=== PATIENT | male | born 1935 | race Caucasian/White ===

== ENCOUNTER 2016-08-18 10:56 | Emergency (ER) | payer MEDICARE ==
[2016-08-18 11:26] VITALS: O2SAT 98
--- NOTE | 2016-08-18 11:26 | ERPHSYRPT ---
- History of Present Illness Time Seen by Provider: 08/18/16 11:26 Physician History: unable to urinate for last 2 days, has Hx of prostate cancer and enlargement, Timing/Duration: day(s) (2 days) Activites at Onset: none Associated Symptoms: other (unable to urinate) - Review of Systems Constitutional: No Symptoms Eyes: No Symptoms Ears, Nose, & Throat: No Symptoms Respiratory: No Symptoms Cardiac: No Symptoms Abdominal/Gastrointestinal: No Symptoms Genitourinary Symptoms: Urinary Retention Musculoskeletal: No Symptoms Skin: No Symptoms - Nursing Vital Signs Nursing Vital Signs: Initial Vital Signs Temperature 99.2 F Temperature Source Oral Pulse Rate 90 Respiratory Rate 18 Blood Pressure [Right Arm] 157/71 Pain Intensity 6 - Physical Exam General Appearance: no apparent distress Gastrointestinal/Abdomen Exam: soft, normal bowel sounds, other (bladder is full , urinary retention) - Course Nursing assessment & vital signs reviewed: Yes - Progress Progress: improved Progress Note: 08/18/16 11:30 rayo catheter inserted, urinary retention relieved, Plan to discharge patient home with indwelling rayo catheter Counseled pt/family regarding: diagnosis, need for follow-up - Departure Time of Disposition: 11:30 Departure Disposition: Home Clinical Impression: Urinary retention due to benign prostatic hyperplasia Condition: Stable Critical Care Time: No Referrals: DOROTHEA MOORE MD [Primary Care Provider] - Followup in 3 days w/ PCP Instructions: Urinary Retention in Men Additional Instructions: Please follow the instructions given to you. Please take your medication as prescribed if given. If symptoms recur or get worse, come back to the emergency room if you cannot reach your primary care physician, or call your primary care physician for an appointment. Again if your symptoms get worse, come back to the emergency room. Thanks for visiting emergency room, and let us take care of you. Prescriptions: Ciprofloxacin HCl 500 mg [Cipro 500 MG] 500 mg PO BIDAC #20 tablet
[2016-08-18 11:44] VITALS: BP 150/63; PULSE 94
[2016-08-18 13:06] LABS: COMPLETE URINE MICROSCOPIC? YES; Collection Type CATH; Ph 5.5 (5-6)
[2016-08-18 13:10] LABS: Epithelial Cells FEW /HPF (FEW); WBC >100 /HPF (0-5)
[2016-08-18 13:11] LABS: ADD URINE CULTURE? YES (NO); Bacteria MODERATE /HPF (NEGATIVE); Yeast MODERATE /HPF (NEGATIVE)
== END 2016-08-18 11:43 | disposition home or self-care (01) ==
LOC: ED 10:56
DX: N40.1 Benign prostatic hyperplasia with lower urinary tract symptoms (principal); R33.8 Other retention of urine
CPT/HCPCS: 51702; 81000; 87086; 99283

== ENCOUNTER 2016-09-21 15:39 | Emergency (ER) | payer MEDICARE ==
--- NOTE | 2016-09-21 16:51 | ERPHSYRPT ---
- History of Present Illness Time Seen by Provider: 09/21/16 16:39 Historian: patient Exam Limitations: no limitations Patient Subjective Stated Complaint: urinary retention starting today. had similair symptoms on 08/18/16. had cath placed at that time for one week and saw dr. howard. recent treament times two for bladder infection. Triage Nursing Assessment: ambulated to room per self. skin w/d, color pale. states he voided small amt in waiting bathroom but no relief. unable to void now. Physician History: This is a 81-year-old white male with history of urinary retention, cataracts, diabetes, COPD, coronary artery disease, hypercholesterolemia, prostate cancer, high blood pressure. He arrives with complaints of being unable to urinate since 10:00 he states he was urinating fine until about 10:00 this morning when he began to just having dribbling with urination he states that he is having pain in the suprapubic region prior to arrival. On arrival patient was noted to be in moderate distress and Rayo was placed and the patient has put out 800 mL of normal saline. He has not had any nausea vomiting diarrhea melena hematochezia. He has no fevers. The patient does state that he had a similar episodes like this in July he was treated by Dr. Moore he was given a Rayo for several days. He has an appointment to see Dr. Howard in several months. He is on Cipro for his urine he does state that his urine has been cloudy lately. Past medical history includes cataracts, diabetes, COPD, coronary artery disease , hypercholesterolemia, high blood pressure, prostate cancer. Patient had his prostate treatment with radiation and later hormones. Past surgical history includes CABG. Social history is positive for tobacco use . Timing/Duration: today Activities at Onset: none Quality: cramping Abdominal Pain Onset Location: suprapubic Pain Radiation: no radiation Severity of Pain-Max: moderate Severity of Pain-Current: mild (pain was moderate on arrival is markedly after receiving Rayo) Modifying Factors: Improves With: nothing Associated Symptoms: other (suprapubic pain, urinary retention), No back, No chest pain, No diaphoresis, No diarrhea, No fever/chills, No fatigue, No headache, No heartburn, No loss of appetite, No nausea, No neck pain, No rash, No shortness of breath, No syncope, No testicular pain, No vomiting, No weakness Allergies/Adverse Reactions: No Known Drug Allergies Allergy (Verified 09/21/16 15:57) Home Medications: Bicalutamide [Casodex] 50 mg PO DAILY 08/18/16 [History] Insulin Glargine [Lantus Insulin] 50 units SQ DAILY 08/18/16 [History] Insulin Glargine,Hum.rec.anlog [Lantus] 40 unit SQ HS 08/18/16 [History] Lipase/Protease/Amylase [Creon Dr 24,000 Units Capsule] 1 each PO DAILY [History] Metoprolol Tartrate 50 mg [Lopressor 50 MG] 50 mg PO BID 08/18/16 [History ] Simvastatin [Zocor] 40 mg PO BID 08/18/16 [History] Tamsulosin HCl 0.4 mg [Flomax 0.4 MG] 0.4 mg PO BID 08/18/16 [History] Valsartan/Hydrochlorothiazide [Valsartan-Hctz 80-12.5 mg Tab] 1 each PO DAILY [History] Cilostazol 50 mg PO BID 09/21/16 [History] Ciprofloxacin HCl 500 mg [Cipro 500 MG] 500 mg PO BID 09/21/16 [History] Hx Tetanus, Diphtheria Vaccination/Date Given: No (up to date) Hx Influenza Vaccination/Date Given: Yes (2015) Hx Pneumococcal Vaccination/Date Given: Yes - Review of Systems Constitutional: No Fever, No Chills Eyes: No Symptoms Ears, Nose, & Throat: No Symptoms Respiratory: No Cough, No Dyspnea Cardiac: No Chest Pain, No Edema, No Syncope Abdominal/Gastrointestinal: Abdominal Pain (Suprapubic pain), No Nausea, No Vomiting, No Diarrhea, No Constipation, No Hematemesis, No Hematochezia, No Melena, No Dysphagia, No Appetite Changes Genitourinary Symptoms: Urinary Retention Musculoskeletal: No Back Pain, No Neck Pain Skin: No Rash Neurological: No Dizziness, No Focal Weakness, No Sensory Changes Psychological: No Symptoms Endocrine: No Symptoms All Other Systems: Reviewed and Negative - Past Medical History Pertinent Past Medical History: Yes ENT History: Cataracts Cardiac History: Coronary Artery Disease, High Cholesterol, Hypertension Respiratory History: COPD Endocrine Medical History: Diabetes Type II Male Reproductive Disorders: Prostate Cancer - Past Surgical History Past Surgical History: Yes Cardiac: CABG - Social History Smoking Status: Light tobacco smoker How long have you smoked: 69 Exposure to second hand smoke: Yes Drug Use: none Patient Lives Alone: No - Nursing Vital Signs Nursing Vital Signs: Initial Vital Signs Temperature 98.5 F Temperature Source Oral Respiratory Rate 20 Blood Pressure [Right Arm] 117/78 Pain Intensity 9 - Physical Exam General Appearance: other (patient in moderate distress on arrival in no distress at this time) Eye Exam: PERRL/EOMI, eyes nml inspection Ears, Nose, Throat Exam: normal ENT inspection, pharynx normal, moist mucous membranes Neck Exam: normal inspection, non-tender, supple, full range of motion Respiratory Exam: normal breath sounds, lungs clear, No respiratory distress Cardiovascular Exam: regular rate/rhythm, normal heart sounds Gastrointestinal/Abdomen Exam: soft, normal bowel sounds, other ( patient with moderate suprapubic pain on arrival, minimal tenderness in the suprapubic regionafter Rayo placed rayo placed), No mass Back Exam: normal inspection, normal range of motion, No CVA tenderness, No vertebral tenderness Extremity Exam: normal inspection, normal range of motion, pelvis stable Neurologic Exam: alert, oriented x 3, cooperative, normal mood/affect, nml cerebellar function, sensation nml, No motor deficits Skin Exam: normal color, warm, dry SpO2 Interpretation: normal Oxygen Delivery: Room Air - Course Nursing assessment & vital signs reviewed: Yes Ordered Tests: Active Orders 24 hr Category Date Time Status Catheter-[place] Rayo STAT Care 09/21/16 16:39 Active CULTURE,URINE Stat Lab 09/21/16 16:39 Ordered UA W/ MICROSCOPIC Stat Lab 09/21/16 16:39 Completed Medication Summary Discontinued Medications Generic Name Dose Route Start Last Admin Trade Name Freq PRN Reason Stop Dose Admin Ceftriaxone Sodium 1,000 mg 09/21/16 17:13 09/21/16 17:29 Rocephin 1000 Mg Inj IM 09/21/16 17:14 1,000 mg STAT ONE Administration Ceftriaxone Sodium Confirm 09/21/16 17:15 Rocephin 1000 Mg Inj Administered 09/21/16 17:16 Dose 1,000 mg .ROUTE .STK-MED ONE Lidocaine HCl Confirm 09/21/16 17:15 Xylocaine 1% Hcl 20 Ml Mdv Administered 09/21/16 17:16 Dose 2 ml .ROUTE .STK-MED ONE Lab/Rad Data: Laboratory Results 09/21/16 Range/Units 16:39 Ur Collection Type CATH Urine Color YELLOW (YELLOW) Urine Appearance CLOUDY (CLEAR) Urine pH 5.5 (5-6) Ur Specific [place] 1.020 (1.005-1.025) Urine Protein 100 (Negative) Urine Glucose (UA) NEGATIVE (NEGATIVE) mg/dL Urine Ketones NEGATIVE (NEGATIVE) Urine Nitrite NEGATIVE (NEGATIVE) Urine Bilirubin NEGATIVE (NEGATIVE) Urine Urobilinogen 0.2 (0-1) mg/dL Urine WBC (Auto) MODERATE (NEGATIVE) Urine RBC (Auto) MODERATE (0-5) Horace/ul Urine Microscopic RBC 25-50 (0-2) /HPF Urine Microscopic WBC >100 (0-5) /HPF Ur Epithelial Cells RARE (FEW) /HPF Urine Bacteria MODERATE (NEGATIVE) /HPF Specimen Received 09/21/16 1649 - Progress Progress: improved Progress Note: 09/21/16 16:53 This 81-year-old white male with history of prostate cancer and urinary retention who is on Cipro for his urine. He arrives with complaint of cloudy urine for 2 days he states that he has been unable to urinate since 10:00 this morning. He got markedly relief with Rayo placement. Urinalysis has been sent will order urine culture. Anticipate discharged with Rayo in place and leg bag. Patient states he will follow-up with Dr. Moore on Saturday. 09/21/16 17:13 Patient does have greater than 100 white cells per high-power field in his urine , he is on Cipro Will go ahead and give patient Rocephin 1 g IM have him continue the Cipro. Will send patient home with a Rayo and leg bag patient to follow-up with Dr. Moore Saturday. Urinary cultures are pending - Departure Time of Disposition: 17:14 Departure Disposition: Home Clinical Impression: Urinary retention, Urinary retention due to benign prostatic hyperplasia UTI (urinary tract infection) Qualifiers: Urinary tract infection type: site unspecified Hematuria presence: with hematuria Qualified Code(s): N39.0 - Urinary tract infection, site not specified Condition: Fair Critical Care Time: No Referrals: DOROTHEA MOORE MD [Primary Care Provider] - Instructions: Urinary Retention in Men Additional Instructions: Return home. Continue Cipro as prescribed by Dr. Moore. Leg bag. Follow-up with Dr. Moore Saturday, sooner if problems. Return for acute distress or for severe symptoms.
[2016-09-21 17:04] LABS: Collection Type CATH; Ph 5.5 (5-6)
[2016-09-21 17:05] LABS: Bacteria MODERATE /HPF (NEGATIVE); COMPLETE URINE MICROSCOPIC? YES; Epithelial Cells RARE /HPF (FEW); WBC >100 /HPF (0-5)
[2016-09-21] MEDS ORDERED: Rocephin 1000 MG INJ IM ONE (17:13)
[2016-09-21] MEDS ORDERED: Rocephin 1000 MG INJ ONE (17:15)
[2016-09-21] MEDS ORDERED: XYLOCAINE 1% HCL 20 ML MDV ONE (17:15)
[2016-09-21 19:10] VITALS: BP 154/90; PULSE 88
== END 2016-09-21 19:10 | disposition home or self-care (01) ==
LOC: ED 15:39
DX: N40.1 Benign prostatic hyperplasia with lower urinary tract symptoms (principal); R33.8 Other retention of urine; N39.0 Urinary tract infection, site not specified; Z85.46 Personal history of malignant neoplasm of prostate
CPT/HCPCS: 51702; 81000; 87086; 96372; 99283; 99284; J0696

== ENCOUNTER 2017-07-17 09:01 | Inpatient (IN) | payer MEDICARE, OTHER ==
--- NOTE | 2017-07-17 09:25 | ERPHSYRPT ---
- History of Present Illness Time Seen by Provider: 07/17/17 09:25 Historian: patient Exam Limitations: no limitations Physician History: 82-year-old white male with history of cataracts, diabetes, COPD, coronary artery disease, hypercholesterolemia, Patient arrives with complaint of 4 weeks of nausea not eating well states he is unable to eat states he has occasional periumbilical pain states she's lost weight states he is weak he denies any fevers he denies any melena or hematochezia no chest pain he states he is chronically short of breath. He does state that he has been having frequent urination at night. Past medical history includes cataracts, diabetes, COPD, coronary artery disease , hypercholesterolemia, high blood pressure, prostate cancer. Past surgical history includes CABG, prostate surgery. Social history positive tobacco use Timing/Duration: week(s) (4 weeks) Activities at Onset: none Quality: cramping Abdominal Pain Onset Location: periumbilical Pain Radiation: no radiation Severity of Pain-Max: moderate Severity of Pain-Current: none Modifying Factors: Improves With: coughing, eating (patient not eating well), urinating (frequent urination at night), vomiting. Worsens With: analgesics, antacids, breathing, defecating, exercise, lying down, movement, palpation, rest , position, walking Associated Symptoms: loss of appetite, nausea, vomiting (occasional vomiting), weakness, No back, No chest pain, No diaphoresis, No diarrhea, No fever/chills, No fatigue, No headache, No heartburn, No neck pain, No rash, No shortness of breath, No syncope Previous symptoms: no prior history Allergies/Adverse Reactions: No Known Drug Allergies Allergy (Verified 07/17/17 09:34) Home Medications: Bicalutamide [Casodex] 50 mg PO DAILY 08/18/16 [History] Insulin Glargine,Hum.rec.anlog [Lantus] 40 unit SQ BIDAC 08/18/16 [History] Lipase/Protease/Amylase [Misty [employer]erson 24,000 Units Capsule] 2 each PO AC 08/18/16 [ History] Metoprolol Tartrate 50 mg [Lopressor 50 MG] 50 mg PO DAILY 08/18/16 [ History] Simvastatin [Zocor] 40 mg PO HS 08/18/16 [History] Tamsulosin HCl 0.4 mg [Flomax 0.4 MG] 0.4 mg PO BID 08/18/16 [History] Valsartan/Hydrochlorothiazide [Valsartan-Hctz 80-12.5 mg Tab] 1 each PO EVENING MEAL 08/18/16 [History] Hx Tetanus, Diphtheria Vaccination/Date Given: No (up to date) Hx Influenza Vaccination/Date Given: Yes (2015) Hx Pneumococcal Vaccination/Date Given: Yes - Review of Systems Constitutional: Weakness, Weight Loss, No Fever, No Chills, No Fatigue, No Lethargy, No Malaise, No Night Sweats Eyes: No Symptoms Ears, Nose, & Throat: No Symptoms Respiratory: Cough, Dyspnea, No Wheezing Cardiac: No Chest Pain, No Edema, No Palpitations, No Syncope, No Orthopnea Abdominal/Gastrointestinal: Abdominal Pain (occasional periumbilical abdominal pain), Nausea, Vomiting (occasional vomiting), Appetite Changes (loss of appetite for 4 weeks), No Diarrhea, No Constipation, No Hematemesis, No Hematochezia, No Melena, No Dysphagia Genitourinary Symptoms: No Dysuria Musculoskeletal: No Back Pain, No Neck Pain Skin: No Rash Neurological: No Dizziness, No Focal Weakness, No Sensory Changes Psychological: No Symptoms Endocrine: No Symptoms All Other Systems: Reviewed and Negative - Past Medical History Pertinent Past Medical History: Yes ENT History: Cataracts Cardiac History: Coronary Artery Disease, High Cholesterol, Hypertension Respiratory History: COPD Endocrine Medical History: Diabetes Type II Male Reproductive Disorders: Prostate Cancer - Past Surgical History Past Surgical History: Yes Cardiac: CABG - Social History Smoking Status: Light tobacco smoker How long have you smoked: 69 Exposure to second hand smoke: Yes Drug Use: none Patient Lives Alone: No - Nursing Vital Signs Nursing Vital Signs: Initial Vital Signs Temperature 97.8 F 07/17/17 09:19 Pulse Rate 98 H 07/17/17 09:19 Respiratory Rate 16 07/17/17 09:19 Blood Pressure 105/69 07/17/17 09:19 O2 Sat by Pulse Oximetry 98 07/17/17 09:19 Pain Scale Pain Intensity 0 - Physical Exam General Appearance: no apparent distress, other (well-developed well-nourished white male pale in appearance) Eye Exam: PERRL/EOMI, eyes nml inspection Ears, Nose, Throat Exam: normal ENT inspection, pharynx normal, moist mucous membranes Neck Exam: normal inspection, non-tender, supple, full range of motion Respiratory Exam: normal breath sounds, rhonchi (occasional scattered rhonchi), No respiratory distress, No diminished breath sounds Cardiovascular Exam: regular rate/rhythm, normal heart sounds Gastrointestinal/Abdomen Exam: soft, normal bowel sounds, No tenderness, No distention, No mass Back Exam: normal inspection, normal range of motion, No CVA tenderness, No vertebral tenderness Extremity Exam: normal inspection, normal range of motion, pelvis stable Neurologic Exam: alert, oriented x 3, cooperative, 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, normal mood/affect, nml cerebellar function, sensation nml, No motor deficits Skin Exam: pale SpO2 Interpretation: normal - Course Nursing assessment & vital signs reviewed: Yes EKG Interpreted by Me: RATE (83 bpm), Sinus Rhythm, NORMAL AXIS, Other (EKG: Sinus rhythm 80 beats per minute normal axis, no acute ST or T wave changes, no old EKG for comparison) - Radiology Exams Chest X-ray Interpretation: Discussed w/ radiologist (non acute hyperinflated chest with chronic features) Ordered Tests: Active Orders 24 hr Category Date Time Status Up With Assistance ROUTINE Activity 07/17/17 11:03 Active Accucheck ACHS Care 07/17/17 11:03 Active Admission/Status Order ROUTINE Care 07/17/17 11:03 Active Call Admit Doctor for Orders ON ADMISSION Care 07/17/17 11:04 Active Code Status Order ROUTINE Care 07/17/17 11:03 Active EKG-ER Only STAT Care 07/17/17 09:22 Active IV Care Q6H Care 07/17/17 11:03 Completed IV Insertion STAT Care 07/17/17 09:22 Active Clear Liquid Diet 07/17/17 Dinner Active CHEST 1 VIEW (PORTABLE) Stat Exams 07/17/17 09:22 Completed AMYLASE Stat Lab 07/17/17 09:25 Completed CBC W DIFF AM.LAB Lab 07/18/17 04:00 Ordered CBC W DIFF Stat Lab 07/17/17 09:25 Completed CMP AM.LAB Lab 07/18/17 04:00 Ordered CMP Stat Lab 07/17/17 09:25 Completed CULTURE,URINE Stat Lab 07/17/17 10:39 Received LIPASE Stat Lab 07/17/17 09:25 Completed UA W/ MICROSCOPIC Stat Lab 07/17/17 10:39 Completed Medication Summary Generic Name Dose Route Start Last Admin Trade Name Freq PRN Reason Stop Dose Admin Sodium Chloride 1,000 mls @ 125 mls/hr 07/17/17 09:30 07/17/17 09:41 Sodium Chloride 0.9% 1000 Ml IV 08/16/17 09:29 125 mls/hr .Q8H BLANCA Administration Ceftriaxone Sodium/Dextrose 1 g in 50 mls @ 100 mls/hr 07/18/17 10:00 Rocephin 1 Gm-D5w 50 Ml Bag IV 08/17/17 09:59 Q24H10 BLANCA Sodium Chloride 1,000 mls @ 125 mls/hr 07/17/17 11:15 Sodium Chloride 0.9% 1000 Ml IV 08/16/17 11:14 .Q8H BLANCA Insulin Aspart 0 unit 07/17/17 11:03 Novolog Insulin SQ 08/16/17 11:02 UD PRN HYPERGLYCEMIA Ondansetron HCl 4 mg 07/17/17 11:03 Zofran 4 Mg/2 Ml Vial IV 08/16/17 11:02 Q6H PRN PRN NAUSEA/VOMITING Discontinued Medications Generic Name Dose Route Start Last Admin Trade Name Freq PRN Reason Stop Dose Admin Ceftriaxone Sodium/Dextrose 1 g in 50 mls @ 100 mls/hr 07/17/17 11:02 11:14 Rocephin 1 Gm-D5w 50 Ml Bag IV 07/17/17 11:31 100 mls/hr STAT STA Administration Ceftriaxone Sodium/Dextrose Confirm 07/17/17 11:05 Rocephin 1 Gm-D5w 50 Ml Bag Administered 07/17/17 11:06 Dose 1 g in 50 mls @ ud IV .STK-MED ONE Sodium Chloride Confirm 07/17/17 09:39 Sodium Chloride 0.9% 1000 Ml Administered 07/17/17 09:40 Dose 1,000 mls @ ud .ROUTE .STK-MED ONE Lab/Rad Data: Laboratory Result Diagrams 07/17/17 09:25 07/17/17 09:25 Laboratory Results 07/17/17 07/17/17 07/17/17 Range/Units 10:39 09:25 09:25 WBC (4.0-10.5) K/mm3 RBC (4.1-5.6) M/mm3 Hgb (12.5-18.0) gm/dl Hct (42-50) % MCV (78-100) fl MCH (26-32) pg MCHC (32-36) g/dl RDW (11.5-14.0) % Plt Count (150-450) K/mm3 MPV (6-9.5) fl Gran % (36.0-66.0) % Lymphocytes % (24.0-44.0) % Monocytes % (0.0-12.0) % Eosinophils % (0.00-5.0) % Basophils % (0.0-0.4) % Basophils # (0-0.4) Sodium 137 (136-145) mEq/L Potassium 4.2 (3.5-5.1) mEq/L Chloride 103 (98-107) mEq/L Carbon Dioxide 19.7 L (21-32) mEq/L Anion Gap 18.0 H (5-15) MEQ/L BUN 49 H (9-20) mg/dL Creatinine 2.50 H (0.55-1.30) mg/dl Estimated GFR 26 ML/MIN Glucose 232 H (70-110) MG/DL Calcium 9.2 (8.5-10.1) mg/dL Total Bilirubin 0.40 (0.2-1.0) mg/dL AST 10 L (15-37) U/L ALT 12 (12-78) U/L Alkaline Phosphatase 76 (46-116) U/L Serum Total Protein 8.2 (6.4-8.2) gm/dL Albumin 2.7 L (3.4-5.0) g/dL Amylase 27 (25-115) U/L Lipase 28 L (73-393) U/L Ur Collection Type CLEAN CATCH Urine Color YELLOW (YELLOW) Urine Appearance CLOUDY (CLEAR) Urine pH 5.0 (5-6) Ur Specific [employer] 1.015 (1.005-1.025) Urine Protein 100 (Negative) Urine Ketones NEGATIVE (NEGATIVE) Urine Blood 250 (0-5) Horace/ul Urine Nitrite NEGATIVE (NEGATIVE) Urine Bilirubin NEGATIVE (NEGATIVE) Urine Urobilinogen NORMAL (0-1) mg/dL Ur Leukocyte Esterase 2+ (NEGATIVE) Urine Microscopic WBC >100 (0-5) /HPF Urine Culture Reflexed YES (NO) Urine Glucose NEGATIVE (NEGATIVE) mg/dL Specimen Received 07-17 1040 ABO Group A Rh Factor POSITIVE Antibody Screen NEGATIVE (NEGATIVE) 07/17/17 Range/Units 09:25 WBC 12.5 H (4.0-10.5) K/mm3 RBC 3.76 L (4.1-5.6) M/mm3 Hgb 10.2 L (12.5-18.0) gm/dl Hct 33.1 L (42-50) % MCV 88.0 (78-100) fl MCH 27.1 (26-32) pg MCHC 30.8 L (32-36) g/dl RDW 13.6 (11.5-14.0) % Plt Count 497 H (150-450) K/mm3 MPV 10.0 H (6-9.5) fl Gran % 75.6 H (36.0-66.0) % Lymphocytes % 15.2 L (24.0-44.0) % Monocytes % 7.8 (0.0-12.0) % Eosinophils % 1.2 (0.00-5.0) % Basophils % 0.2 (0.0-0.4) % Basophils # 0.02 (0-0.4) Sodium (136-145) mEq/L Potassium (3.5-5.1) mEq/L Chloride (98-107) mEq/L Carbon Dioxide (21-32) mEq/L Anion Gap (5-15) MEQ/L BUN (9-20) mg/dL Creatinine (0.55-1.30) mg/dl Estimated GFR ML/MIN Glucose (70-110) MG/DL Calcium (8.5-10.1) mg/dL Total Bilirubin (0.2-1.0) mg/dL AST (15-37) U/L ALT (12-78) U/L Alkaline Phosphatase (46-116) U/L Serum Total Protein (6.4-8.2) gm/dL Albumin (3.4-5.0) g/dL Amylase (25-115) U/L Lipase (73-393) U/L Ur Collection Type Urine Color (YELLOW) Urine Appearance (CLEAR) Urine pH (5-6) Ur Specific [employer] (1.005-1.025) Urine Protein (Negative) Urine Ketones (NEGATIVE) Urine Blood (0-5) Horace/ul Urine Nitrite (NEGATIVE) Urine Bilirubin (NEGATIVE) Urine Urobilinogen (0-1) mg/dL Ur Leukocyte Esterase (NEGATIVE) Urine Microscopic WBC (0-5) /HPF Urine Culture Reflexed (NO) Urine Glucose (NEGATIVE) mg/dL Specimen Received ABO Group Rh Factor Antibody Screen (NEGATIVE) - Progress Progress: improved Progress Note: 07/17/17 10:58 82-year-old white male with history of prostate cancer diabetes COPD high blood pressure. Arrives with complaint of nausea, periumbilical abdominal pain, unable to eat symptoms going on for 4 weeks. Patient pale in appearance on arrival vitals are stable Patient with the BUN of 49 creatinine 2.5 glucose 232 Patient with elevated white count of 12.5 hemoglobin 10.2 hematocrit 33.1 Urine greater than 100 white cells per high-power field Patient is given 1 L of normal saline Will place patient on Rocephin 1 g IV. Case has been discussed with Dr. Bella will place patient on observation for continued IV fluids, continued Rocephin. - Departure Time of Disposition: 11:00 Departure Disposition: Observation Clinical Impression: Dehydration UTI (urinary tract infection) Qualifiers: Urinary tract infection type: site unspecified Hematuria presence: without hematuria Qualified Code(s): N39.0 - Urinary tract infection, site not specified Nausea and vomiting Qualifiers: Vomiting type: unspecified Vomiting Intractability: non-intractable Qualified Code(s): R11.2 - Nausea with vomiting, unspecified Renal failure Qualifiers: Renal failure chronicity: acute on chronic Acute renal failure type: unspecified Chronic kidney disease stage: unspecified stage Qualified Code(s): N17.9 - Acute kidney failure, unspecified Condition: Fair Critical Care Time: No
[2017-07-17] MEDS ORDERED: Sodium Chloride 0.9% 1000 ML 1,000 ML IV SCH (09:30)
[2017-07-17 09:39] LABS: BASOPHIL % 0.2 % (0.0-0.4); Basophil (Absolute #) 0.02 (0-0.4); Eosinophil % 1.2 % (0.00-5.0); Eosinophil (Absolute #) 0.15 (0-0.5); Granulocyte Absolute (ANC) 9.43 (1.4-6.9); Granulocytes % 75.6 % (36.0-66.0); Hematocrit 33.1 % (42-50); Hemoglobin 10.2 gm/dl (12.5-18.0); Lymphocytes % 15.2 % (24.0-44.0); Mean Corpuscular Hemoglobin 27.1 pg (26-32); Mean Corpuscular Hgb Concent. 30.8 g/dl (32-36); Monocyte (Absolute #) 0.97 (0.0-1.3); Monocytes % 7.8 % (0.0-12.0); Platelet Count 497 K/mm3 (150-450); Red Blood Count 3.76 M/mm3 (4.1-5.6); Red Cell Distribution Width 13.6 % (11.5-14.0); White Blood Count 12.5 K/mm3 (4.0-10.5)
[2017-07-17] MEDS ORDERED: Sodium Chloride 0.9% 1000 ML 1,000 ML ONE (09:39)
[2017-07-17 10:09] LABS: ALBUMIN 2.7 g/dL (3.4-5.0); BILIRUBIN,TOTAL 0.4 mg/dL (0.2-1.0); Calcium 9.2 mg/dL (8.5-10.1); Carbon Dioxide 19.7 mEq/L (21-32); Creatinine 1 2.5 mg/dl (0.55-1.30); Potassium 4.2 mEq/L (3.5-5.1); Total Protein 8.2 gm/dL (6.4-8.2)
--- NOTE | 2017-07-17 10:19 | XRAY ---
Indication: Cough, nausea, and vomiting. Anorexia. Comparison: None Portable chest hyperinflated and clear. Heart is not enlarged and demonstrates previous CABG surgery. Bony thorax intact with old left clavicle fracture. Impression: Nonacute hyperinflated chest with chronic features.
[2017-07-17 10:22] LABS: ABO TYPING A; Antibody Screen NEGATIVE (NEGATIVE); RH TYPING POSITIVE
[2017-07-17 10:40] LABS: Appearance CLOUDY (CLEAR); Bilirubin NEGATIVE (NEGATIVE); Blood 250 Ery/ul (0-5); Glucose NEGATIVE (NEGATIVE); Ketones NEGATIVE (NEGATIVE); Leukocyte Esterase 2+ (NEGATIVE); Nitrite NEGATIVE (NEGATIVE); Protein,Urine Dip 100 (Negative); Specific Gravity 1.015 (1.005-1.025); Urobilinogen NORMAL mg/dL (0-1)
[2017-07-17 10:47] LABS: WBC >100 /HPF (0-5)
[2017-07-17] MEDS ORDERED: ROCEPHIN 1 Gm-D5w 50 ml Bag** 1 G/50 ML IVPB IV STA (11:02)
[2017-07-17] MEDS ORDERED: Zofran 4 MG/2 ML VIAL IV PRN (11:03)
[2017-07-17] MEDS ORDERED: ROCEPHIN 1 Gm-D5w 50 ml Bag** 1 G/50 ML IVPB IV ONE (11:05)
[2017-07-17] MEDS ORDERED: PROVENTIL 2.5 MG/3 ML NEB IH PRN (14:29)
[2017-07-17] MEDS: Sodium Chloride 0.9% 1000 ML 1,000 ML IV SCH (15:13)
[2017-07-17] MEDS: Lopressor 50 MG PO SCH (16:10)
[2017-07-17] MEDS: BICALUTAMIDE PO SCH (16:10)
[2017-07-17] MEDS ORDERED: AMYLASE PO SCH (16:30)
[2017-07-17] MEDS ORDERED: PROTEASE PO SCH (16:30)
[2017-07-17] MEDS ORDERED: LIPASE PO SCH (16:30)
[2017-07-17] MEDS: DIOVAN 80 MG PO SCH (17:02)
[2017-07-17] MEDS: Lantus Insulin SQ SCH (17:02)
[2017-07-17] MEDS: hydroDIURIL 25 MG PO SCH (17:02)
[2017-07-17] MEDS: NovoLOG Insulin SQ PRN (17:03)
[2017-07-17] MEDS: PANCRELIPASE DR 5,000 UNIT CAP PO SCH (17:03)
[2017-07-17] MEDS ORDERED: HYDROCHLOROTHIAZIDE PO SCH (18:00)
[2017-07-17] MEDS ORDERED: VALSARTAN PO SCH (18:00)
[2017-07-17] MEDS ORDERED: [UNRECOGNIZED DRUG - OTHER] PO SCH (18:00)
[2017-07-17] MEDS: Flomax 0.4 MG PO SCH (21:52)
[2017-07-17] MEDS: ZOCOR 20MG PO SCH (21:52)
[2017-07-18] MEDS: Sodium Chloride 0.9% 1000 ML 1,000 ML IV SCH ×3 (00:12→16:04)
[2017-07-18] MEDS: Lopressor 50 MG PO SCH (05:53)
[2017-07-18 06:08] LABS: BASOPHIL % 0.2 % (0.0-0.4); Basophil (Absolute #) 0.02 (0-0.4); Eosinophil % 4.3 % (0.00-5.0); Granulocyte Absolute (ANC) 6.01 (1.4-6.9); Granulocytes % 65.4 % (36.0-66.0); Hematocrit 26.9 % (42-50); Hemoglobin 8.2 gm/dl (12.5-18.0); Lymphocyte (Absolute #) 1.78 (1.0-4.6); Lymphocytes % 19.3 % (24.0-44.0); Mean Cell Volume 87.6 fl (78-100); Mean Corpuscular Hemoglobin 26.7 pg (26-32); Mean Corpuscular Hgb Concent. 30.5 g/dl (32-36); Mean Platelet Volume 9.5 fl (6-9.5); Monocyte (Absolute #) 0.99 (0.0-1.3); Monocytes % 10.8 % (0.0-12.0); Platelet Count 403 K/mm3 (150-450); Red Blood Count 3.07 M/mm3 (4.1-5.6); Red Cell Distribution Width 13.5 % (11.5-14.0); White Blood Count 9.2 K/mm3 (4.0-10.5)
[2017-07-18 06:46] LABS: ALBUMIN 2.1 g/dL (3.4-5.0); ANION GAP 13.8 MEQ/L (5-15); BILIRUBIN,TOTAL 0.2 mg/dL (0.2-1.0); Calcium 8.4 mg/dL (8.5-10.1); Carbon Dioxide 20.5 mEq/L (21-32); Creatinine 1 1.74 mg/dl (0.55-1.30); Potassium 4.5 mEq/L (3.5-5.1); Total Protein 6.2 gm/dL (6.4-8.2)
[2017-07-18] MEDS: Lantus Insulin SQ SCH ×2 (07:39→16:28)
[2017-07-18] MEDS: PANCRELIPASE DR 5,000 UNIT CAP PO SCH ×3 (07:40→16:28)
[2017-07-18] MEDS ORDERED: BICALUTAMIDE 50 MG PO SCH (10:00)
[2017-07-18] MEDS: Flomax 0.4 MG PO SCH ×2 (10:10→21:39)
[2017-07-18] MEDS: BICALUTAMIDE PO SCH (10:11)
[2017-07-18] MEDS: ROCEPHIN 1 Gm-D5w 50 ml Bag** 1 G/50 ML IVPB IV SCH (10:11)
--- NOTE | 2017-07-18 13:43 | PCM.HP ---
History of Present Illness - Chief Complaint Chief Complaint: uti, acute renal failure, n/v History of Present Illness: is a 82-year-old white male with history of cataracts, diabetes, COPD , coronary artery disease, hypercholesterolemia, Patient arrives with complaint of 4 weeks of nausea not eating well states he is unable to eat states he has occasional periumbilical pain states she's lost weight states he is weak he denies any fevers he denies any melena or hematochezia no chest pain he states he is chronically short of breath. He does state that he has been having frequent urination at night. Past medical history includes cataracts, diabetes, COPD, coronary artery disease , hypercholesterolemia, high blood pressure, prostate cancer. Past surgical history includes CABG, prostate surgery. Social history positive tobacco use Timing/Duration: week(s) (4 weeks) Activities at Onset: none Quality: cramping Abdominal Pain Onset Location: periumbilical Pain Radiation: no radiation Severity of Pain-Max: moderate Severity of Pain-Current: none Modifying Factors: Improves With: coughing, eating (patient not eating well), urinating (frequent urination at night), vomiting. Worsens With: analgesics, antacids, breathing, defecating, exercise, lying down, movement, palpation, rest , position, walking Associated Symptoms: loss of appetite, nausea, vomiting (occasional vomiting), weakness, No back, No chest pain, No diaphoresis, No diarrhea, No fever/chills, No fatigue, No headache, No heartburn, No neck pain, No rash, No shortness of breath, No syncope - Review of Systems Constitutional: No Fever, No Chills Eyes: No Symptoms Ears, Nose, & Throat: No Symptoms Respiratory: No Cough, No Short Of Breath Cardiac: No Chest Pain, No Edema, No Syncope Abdominal/Gastrointestinal: No Abdominal Pain, No Nausea, No Vomiting, No Diarrhea Genitourinary Symptoms: No Dysuria Musculoskeletal: No Back Pain, No Neck Pain Skin: No Rash Neurological: No Dizziness, No Focal Weakness, No Sensory Changes Psychological: No Symptoms Endocrine: No Symptoms Hematologic/Lymphatic: No Symptoms Immunological/Allergic: No Symptoms Medications & Allergies Home Medications: Home Medication List Bicalutamide [Casodex] 50 mg PO DAILY 08/18/16 [History Confirmed 07/17/17] Insulin Glargine,Hum.rec.anlog [Lantus] 40 unit SQ BIDAC 08/18/16 [History Confirmed 07/17/17] Lipase/Protease/Amylase [Misty Pierson 24,000 Units Capsule] 2 each PO AC 08/18/16 [ History Confirmed 07/17/17] Metoprolol Tartrate 50 mg [Lopressor 50 MG] 50 mg PO DAILY 08/18/16 [ History Confirmed 07/17/17] Simvastatin [Zocor] 40 mg PO HS 08/18/16 [History Confirmed 07/17/17] Tamsulosin HCl 0.4 mg [Flomax 0.4 MG] 0.4 mg PO BID 08/18/16 [History Confirmed 07/17/17] Valsartan/Hydrochlorothiazide [Valsartan-Hctz 80-12.5 mg Tab] 1 each PO EVENING MEAL 08/18/16 [History Confirmed 07/17/17] Allergies/Adverse Reactions: Allergies Allergy/AdvReac Type Severity Reaction Status Date / Time No Known Drug Allergies Allergy Verified 07/17/17 09:34 - Past Medical History Past Medical History: Yes Neurological History: No Pertinent History ENT History: Cataracts Cardiac History: Coronary Artery Disease, High Cholesterol, Hypertension Respiratory History: COPD Endocrine Medical History: Diabetes Type II Musculoskelatal History: No Pertinent History GI Medical History: No Pertinent History History: No Pertinent History Pyscho-Social History: No Pertinent History Male Reproductive Disorders: Prostate Cancer - Past Surgical History Past Surgical History: Yes Neuro Surgical History: No Pertinent History Cardiac History: CABG Respiratory Surgery: No Pertinent History GI Surgical History: No Pertinent History Genitourinary Surgical Hx: No Pertinent History Musculskeletal Surgical Hx: No Pertinent History Male Surgical History: Prostate Surgery - Social History Smoking Status: Light tobacco smoker How long have you smoked: 69 Exposure to second hand smoke: Yes Alcohol: None Drug Use: none - Physical Exam Vital Signs: Vital Signs - 24 hr Temp Pulse Resp BP Pulse Ox 07/18/17 12:00 99 F 55 L 20 168/72 95 07/18/17 08:00 98.7 F 54 L 20 144/96 94 L 07/18/17 07:14 66 20 97 07/18/17 04:00 98.1 F 64 20 188/74 96 07/18/17 00:00 98.1 F 59 L 18 177/76 96 07/17/17 19:31 57 L 18 96 07/17/17 16:00 98.9 F 59 L 20 184/73 95 07/17/17 14:31 74 18 94 L General Appearance: no apparent distress, alert Neurologic Exam: alert, oriented x 3, cooperative, normal mood/affect, nml cerebellar function, nml station & gait, sensation nml, No motor deficits Eye Exam: PERRL/EOMI, eyes nml inspection Ears, Nose, Throat Exam: normal ENT inspection, TMs normal, pharynx normal, moist mucous membranes Neck Exam: normal inspection, non-tender, supple, full range of motion Respiratory Exam: normal breath sounds, lungs clear, No respiratory distress Cardiovascular Exam: regular rate/rhythm, normal heart sounds, normal peripheral pulses Gastrointestinal/Abdomen Exam: soft, normal bowel sounds, No tenderness, No mass Back Exam: normal inspection, normal range of motion, No CVA tenderness, No vertebral tenderness Extremity Exam: normal inspection, normal range of motion, pelvis stable Skin Exam: normal color, warm, dry, No rash Lymphatic Exam: No adenopathy Results - Labs Lab/Micro Results: Accuchecks Date 07/18/17 Date 07/18/17 Date 07/17/17 Date 07/17/17 Time 11:30 Time 07:30 Time 22:00 Accucheck Value: 99 Accucheck Value: 63 Accucheck Value: 97 Accucheck Value: 238 Lab Results-Last 24 Hours 07/17/17 07/18/17 07/18/17 Range/Units Unknown 05:45 05:45 WBC 9.2 (4.0-10.5) K/mm3 RBC 3.07 L (4.1-5.6) M/mm3 Hgb 8.2 L (12.5-18.0) gm/dl Hct 26.9 L (42-50) % MCV 87.6 (78-100) fl MCH 26.7 (26-32) pg MCHC 30.5 L (32-36) g/dl RDW 13.5 (11.5-14.0) % Plt Count 403 (150-450) K/mm3 MPV 9.5 (6-9.5) fl Gran % 65.4 (36.0-66.0) % Lymphocytes % 19.3 L (24.0-44.0) % Monocytes % 10.8 (0.0-12.0) % Eosinophils % 4.3 (0.00-5.0) % Basophils % 0.2 (0.0-0.4) % Basophils # 0.02 (0-0.4) Sodium 141 (136-145) mEq/L Potassium 4.5 (3.5-5.1) mEq/L Chloride 111 H (98-107) mEq/L Carbon Dioxide 20.5 L (21-32) mEq/L Anion Gap 13.8 (5-15) MEQ/L BUN 35 H (9-20) mg/dL Creatinine 1.74 H (0.55-1.30) mg/dl Estimated GFR 40 ML/MIN Glucose 81 (70-110) MG/DL Hemoglobin A1c 9.3 H (4.5-6.2) Calcium 8.4 L (8.5-10.1) mg/dL Total Bilirubin 0.20 (0.2-1.0) mg/dL AST 9 L (15-37) U/L ALT 7 L (12-78) U/L Alkaline Phosphatase 60 (46-116) U/L Serum Total Protein 6.2 L (6.4-8.2) gm/dL Albumin 2.1 L (3.4-5.0) g/dL Accuchecks Date 07/18/17 Date 07/18/17 Date 07/17/17 Date 07/17/17 Time 11:30 Time 07:30 Time 22:00 Accucheck Value: 99 Accucheck Value: 63 Accucheck Value: 97 Accucheck Value: 238 - Other Procedures and Tests Respiratory Therapy 07/17/17 14:29 Respiratory Nebulizer PRN Assessment/Plan (1) Dehydration Current Visit: Yes Status: Acute Code(s): E86.0 - DEHYDRATION (2) Nausea and vomiting Current Visit: Yes Status: Acute Qualifiers: Vomiting type: unspecified Vomiting Intractability: non-intractable Qualified Code(s): R11.2 - Nausea with vomiting, unspecified Code(s): R11.2 - NAUSEA WITH VOMITING, UNSPECIFIED (3) Renal failure Current Visit: Yes Status: Acute Qualifiers: Renal failure chronicity: acute on chronic Acute renal failure type: unspecified Chronic kidney disease stage: unspecified stage Qualified Code(s ): N17.9 - Acute kidney failure, unspecified; N18.9 - Chronic kidney disease, unspecified; N18.9 - Chronic kidney disease, unspecified (4) UTI (urinary tract infection) Current Visit: Yes Status: Acute Qualifiers: Urinary tract infection type: site unspecified Hematuria presence: without hematuria Qualified Code(s): N39.0 - Urinary tract infection, site not specified Code(s): N39.0 - URINARY TRACT INFECTION, SITE NOT SPECIFIED
[2017-07-18] MEDS: hydroDIURIL 25 MG PO SCH (17:47)
[2017-07-18] MEDS: DIOVAN 80 MG PO SCH (17:47)
[2017-07-18] MEDS ORDERED: TYLENOL 325 MG PO PRN (20:08)
[2017-07-18] MEDS: NORVASC 5 MG PO SCH (20:19)
[2017-07-18] MEDS: Levofloxacin 500MG/100ML D5W 500 MG/100 ML BAG IV SCH (20:19)
[2017-07-18] MEDS: ZOCOR 20MG PO SCH (21:39)
[2017-07-18] MEDS: NovoLOG Insulin SQ PRN (23:29)
[2017-07-19] MEDS: Sodium Chloride 0.9% 1000 ML 1,000 ML IV SCH ×3 (01:24→18:00)
--- NOTE | 2017-07-19 08:26 | PCM.NOTE ---
Date and Time: 07/19/17824 Subjective Assessment: doing better, no new complaints - Review of Systems Constitutional: No Fever, No Chills Eyes: No Symptoms Ears, Nose, & Throat: No Symptoms Respiratory: No Cough, No Short Of Breath Cardiac: No Chest Pain, No Edema, No Syncope Abdominal/Gastrointestinal: No Abdominal Pain, No Nausea, No Vomiting, No Diarrhea Genitourinary Symptoms: No Dysuria Musculoskeletal: No Back Pain, No Neck Pain Skin: No Rash Neurological: No Dizziness, No Focal Weakness, No Sensory Changes Psychological: No Symptoms Endocrine: No Symptoms Hematologic/Lymphatic: No Symptoms Immunological/Allergic: No Symptoms Objective Exam General Appearance: no apparent distress, alert Neurologic Exam: alert, oriented x 3, cooperative, normal mood/affect, nml cerebellar function, sensation nml, No motor deficits Skin Exam: normal color, warm, dry Eye Exam: PERRL, EOMI, eyes nml inspection Ears, Nose, Throat Exam: normal ENT inspection, pharynx normal, moist mucous membranes Neck Exam: normal inspection, non-tender, supple, full range of motion Respiratory Exam: normal breath sounds, lungs clear, No respiratory distress Cardiovascular Exam: regular rate/rhythm, normal heart sounds Gastrointestinal/Abdomen Exam: soft, No tenderness, No mass Extremity Exam: normal inspection, normal range of motion Back Exam: normal inspection, normal range of motion, No CVA tenderness, No vertebral tenderness Male Genitalia Exam: deferred Rectal Exam: deferred OBJECTIVE DATA Vital Signs: Vital Signs - 24 hr Temp Pulse Resp BP Pulse Ox 07/19/17 07:29 98.8 F 73 22 155/66 96 07/19/17 04:00 98.2 F 65 24 152/67 93 L 07/19/17 00:00 99.6 F 70 24 146/71 91 L 07/18/17 20:42 80 21 92 L 07/18/17 20:20 101.5 F 80 22 184/76 94 L 07/18/17 16:00 98.5 F 71 20 197/88 94 L 07/18/17 12:00 99 F 55 L 20 168/72 95 Pain Assessment - Last Documented Pain Intensity 0 Pain Scale Used 0-10 Pain Scale Intake and Output: Intake & Output 07/16/17 07/17/17 07/18/17 07/19/17 11:59 11:59 11:59 11:59 Intake Total 2042 Output Total 1700 Balance 343 Lab Results: Accuchecks Date 07/19/17 Date 07/18/17 Time 07:30 Time 22:00 Accucheck Value: 88 Accucheck Value: 212 Accucheck Value: 98 Assessment/Plan (1) UTI (urinary tract infection) Current Visit: Yes Status: Acute Qualifiers: Urinary tract infection type: site unspecified Hematuria presence: without hematuria Qualified Code(s): N39.0 - Urinary tract infection, site not specified Code(s): N39.0 - URINARY TRACT INFECTION, SITE NOT SPECIFIED (2) Dehydration Current Visit: Yes Status: Resolved Code(s): E86.0 - DEHYDRATION (3) Nausea and vomiting Current Visit: Yes Status: Resolved Qualifiers: Vomiting type: unspecified Vomiting Intractability: non-intractable Qualified Code(s): R11.2 - Nausea with vomiting, unspecified Code(s): R11.2 - NAUSEA WITH VOMITING, UNSPECIFIED (4) Renal failure Current Visit: Yes Status: Chronic Qualifiers: Renal failure chronicity: acute on chronic Acute renal failure type: unspecified Chronic kidney disease stage: unspecified stage Qualified Code(s ): N17.9 - Acute kidney failure, unspecified; N18.9 - Chronic kidney disease, unspecified; N18.9 - Chronic kidney disease, unspecified (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
[2017-07-19] MEDS: Lantus Insulin SQ SCH ×2 (09:00→15:54)
[2017-07-19] MEDS: Lopressor 50 MG PO SCH (09:01)
[2017-07-19] MEDS: PANCRELIPASE DR 5,000 UNIT CAP PO SCH ×3 (09:01→16:06)
[2017-07-19] MEDS: Flomax 0.4 MG PO SCH ×2 (09:01→21:41)
[2017-07-19] MEDS: ROCEPHIN 1 Gm-D5w 50 ml Bag** 1 G/50 ML IVPB IV SCH (09:02)
[2017-07-19] MEDS: BICALUTAMIDE PO SCH (09:08)
[2017-07-19] MEDS: hydroDIURIL 25 MG PO SCH (17:20)
[2017-07-19] MEDS: DIOVAN 80 MG PO SCH (17:20)
[2017-07-19] MEDS: ZOCOR 20MG PO SCH (21:41)
[2017-07-19] MEDS: NORVASC 5 MG PO SCH (21:41)
[2017-07-20] MEDS: Lantus Insulin SQ SCH ×2 (07:53→16:46)
[2017-07-20] MEDS: PANCRELIPASE DR 5,000 UNIT CAP PO SCH ×3 (08:04→16:52)
[2017-07-20] MEDS: ROCEPHIN 1 Gm-D5w 50 ml Bag** 1 G/50 ML IVPB IV SCH (09:52)
[2017-07-20] MEDS: BICALUTAMIDE PO SCH (09:57)
[2017-07-20] MEDS: Lopressor 50 MG PO SCH (09:57)
[2017-07-20] MEDS: Flomax 0.4 MG PO SCH ×2 (09:57→21:29)
[2017-07-20] MEDS: Sodium Chloride 0.9% 1000 ML 1,000 ML IV SCH ×2 (11:43→19:45)
[2017-07-20] MEDS: hydroDIURIL 25 MG PO SCH (16:51)
[2017-07-20] MEDS: DIOVAN 80 MG PO SCH (16:52)
[2017-07-20] MEDS: Levofloxacin 500MG/100ML D5W 500 MG/100 ML BAG IV SCH (19:46)
[2017-07-20] MEDS: NORVASC 5 MG PO SCH (21:29)
[2017-07-20] MEDS: ZOCOR 20MG PO SCH (21:29)
[2017-07-21] MEDS: Sodium Chloride 0.9% 1000 ML 1,000 ML IV SCH (04:59)
[2017-07-21 07:09] VITALS: BP 159/84; PULSE 78; O2SAT 96
[2017-07-21] MEDS: PANCRELIPASE DR 5,000 UNIT CAP PO SCH (07:48)
[2017-07-21] MEDS: Lantus Insulin SQ SCH (07:48)
--- NOTE | 2017-07-21 20:12 | PCM.DS ---
Discharge Summary Date of Admission: 07/18/17 13:42 Admitting Physician: DOROTHEA MOORE Primary Care Provider: DOROTHEA MOORE Allergies Allergies No Known Drug Allergies Allergy (Verified 07/17/17 09:34) Hospital Summary - Hospital Course Hospital Course: Chief Complaint Diagnosis UTI, N/V, ACUTE RENAL FAILURE Allergies Allergy/AdvReac Type Severity Reaction Status Date / Time No Known Drug Allergies Allergy Verified 07/17/17 09:34 Vital Signs (Last 24 hours) Temp Pulse Resp BP Pulse Ox 07/21/17 07:09 98 F 78 18 159/84 96 07/21/17 04:00 97.9 F 67 16 172/74 95 07/21/17 00:00 98.8 F 62 18 165/71 96 Home Medications Medication Instructions Recorded Confirmed Last Taken Type Ciprofloxacin [Cipro 500 MG] 500 mg PO BID #20 tablet 07/21/17 Unknown Rx Current Medications Discontinued Medications Generic Name Dose Route Start Last Admin Trade Name Freq PRN Reason Stop Dose Admin Acetaminophen 650 mg 07/18/17 20:08 07/18/17 20:18 Tylenol 325 Mg PO 08/17/17 20:07 650 mg Q4H PRN PRN Administration PAIN AND/OR FEVER Albuterol Sulfate 2.5 mg 07/17/17 14:29 Proventil 2.5 Mg/3 Ml Neb IH 08/16/17 14:28 Q4H PRN PRN SHORTNESS OF BREATH/WHEEZING Amlodipine Besylate 5 mg 07/18/17 22:00 07/20/17 21:29 Norvasc 5 Mg PO 08/17/17 21:59 5 mg HS BLANCA Administration Lipase/Protease/Amylase 2 cap 07/17/17 16:30 07/21/17 07:[address] 5,000 Unit Cap PO 08/16/17 16:29 Not Given AC BLANCA Hydrochlorothiazide 12.5 mg 07/17/17 18:00 07/20/17 16:51 Hydrodiuril 25 Mg PO 08/16/17 17:59 12.5 mg EVENING MEAL BLANCA Administration Sodium Chloride 1,000 mls @ 125 mls/hr 07/17/17 09:30 07/17/17 09:41 Sodium Chloride 0.9% 1000 Ml IV 08/16/17 09:29 125 mls/hr .Q8H BLANCA Administration Ceftriaxone Sodium/Dextrose 1 g in 50 mls @ 100 mls/hr 07/17/17 11:02 11:14 Rocephin 1 Gm-D5w 50 Ml Bag IV 07/17/17 11:31 100 mls/hr STAT STA Administration Ceftriaxone Sodium/Dextrose 1 g in 50 mls @ 100 mls/hr 07/18/17 10:00 09:52 Rocephin 1 Gm-D5w 50 Ml Bag IV 08/17/17 09:59 100 mls/hr Q24H10 BLANCA Administration Sodium Chloride 1,000 mls @ 125 mls/hr 07/17/17 11:15 07/21/17 04:59 Sodium Chloride 0.9% 1000 Ml IV 08/16/17 11:14 125 mls/hr .Q8H BLANCA Administration Ceftriaxone Sodium/Dextrose Confirm 07/17/17 11:05 Rocephin 1 Gm-D5w 50 Ml Bag Administered 07/17/17 11:06 Dose 1 g in 50 mls @ ud IV .STK-MED ONE Sodium Chloride Confirm 07/17/17 09:39 Sodium Chloride 0.9% 1000 Ml Administered 07/17/17 09:40 Dose 1,000 mls @ ud .ROUTE .STK-MED ONE Levofloxacin/Dextrose 500 mg in 100 mls @ 100 mls/hr 07/18/17 20:15 07/20/17 19:46 Levofloxacin 500mg/100ml D5w IV 08/17/17 20:14 100 mls/hr Q48H BLANCA Administration Insulin Aspart 0 unit 07/17/17 11:03 07/18/17 23:29 Novolog Insulin SQ 08/16/17 11:02 2 unit UD PRN Administration HYPERGLYCEMIA Insulin Glargine 40 unit 07/17/17 16:30 07/21/17 07:48 Lantus Insulin SQ 08/16/17 16:29 Not Given BIDAC BLANCA Metoprolol Tartrate 50 mg 07/17/17 15:30 07/20/17 09:57 Lopressor 50 Mg PO 08/16/17 15:29 50 mg DAILY BLANCA Administration Non-Formulary Medication 0 mg 07/17/17 16:00 07/20/17 09:57 Bicalutamide PO 08/16/17 15:59 50 mg DAILY BLANCA Administration Ondansetron HCl 4 mg 07/17/17 11:03 07/17/17 15:31 Zofran 4 Mg/2 Ml Vial IV 08/16/17 11:02 4 mg Q6H PRN PRN Administration NAUSEA/VOMITING Simvastatin 40 mg 07/17/17 22:00 07/20/17 21:29 Zocor 20mg PO 08/16/17 21:59 40 mg HS BLANCA Administration Tamsulosin HCl 0.4 mg 07/17/17 22:00 07/20/17 21:29 Flomax 0.4 Mg PO 08/16/17 21:59 0.4 mg BID BLANCA Administration Valsartan 80 mg 07/17/17 18:00 07/20/17 16:52 Diovan 80 Mg PO 08/16/17 17:59 80 mg EVENING MEAL BLANCA Administration Intake & Output (Last 24 hours) 07/19/17 07/20/17 07/21/17 07/22/17 11:59 11:59 11:59 11:59 Intake Total 1648 5734 4257 Output Total 1999 3400 3025 Balance 9371 673 0349 Weight 67.132 kg Orders (Last 24 hours) Category Date Time Status Discharge Routine Discharge 07/21/17 Ordered Discharge/Telephone Order Routine Discharge 07/21/17 Active Patient Care Notes (Last 24 hours) 07/21/17 08:00 (created 07/21/17 08:23) Nursing Note by Sheri Birmingham Discharged given and understood. Discharged at this time via spouse. Initialized on 07/21/17 08:23 - END OF NOTE - Vitals & Intake/Output Vital Signs: Vital Signs Temperature 98 F 07/21/17 07:09 Pulse Rate 78 07/21/17 07:09 Respiratory Rate 18 07/21/17 07:09 Blood Pressure 159/84 07/21/17 07:09 O2 Sat by Pulse Oximetry 96 07/21/17 07:09 Oxygen-Last Documented O2 Percentage 2 Liters = 28% Intake & Output: Intake & Output 07/19/17 07/20/17 07/21/17 07/22/17 11:59 11:59 11:59 11:59 Intake Total 2523 3544 4257 Output Total 1999 2561 8045 Balance 387 421 2335 Weight 67.132 kg - Lab Result Diagrams: 07/18/17 05:45 07/18/17 05:45 Lab Results-Last 24 Hrs: Accuchecks Date 07/21/17 Date 07/20/17 Time 07:38 Accucheck Value: 146 Accucheck Value: 141 Micro Results-Entire Visit: Accuchecks Date 07/21/17 Date 07/20/17 Time 07:38 Accucheck Value: 146 Accucheck Value: 141 - Procedures and Test Procedures and Tests throughout Hospitalization: Therapy Orders & Screens 07/19/17 14:07 ST Eval & Treat ( Order) .as ordered Comment: Physician Instructions: EVALUATE Reason For Exam: FAMILY REPORTS PT UNABLE TO KEEP DOWN SOLID FOODS Evaluate: Yes Treat: Yes Reason for Eval: FAMILY REPORTS SIGNIFICANT WEIGHT LOSS, PT UNABLE TO KEEP DOWN SOLID FOODS, HAS BEEN EATING NOTHING BUT SOUP AND DRINKING WATER Diagnosis: UTI, N/V, ACUTE RENAL FAILURE 07/20/17 07:16 Oxygen NASAL CANNULA 2 lpm Comment: Diagnosis: UTI, N/V, ACUTE RENAL FAILURE Discharge Exam General Appearance: no apparent distress, alert Neurologic Exam: alert, oriented x 3, cooperative, normal mood/affect, nml cerebellar function, sensation nml, No motor deficits Skin Exam: normal color, warm, dry Eye Exam: PERRL, EOMI, eyes nml inspection Ears, Nose, Throat Exam: normal ENT inspection, pharynx normal, moist mucous membranes Neck Exam: normal inspection, non-tender, supple, full range of motion Respiratory Exam: normal breath sounds, lungs clear, No respiratory distress Cardiovascular Exam: regular rate/rhythm, normal heart sounds Gastrointestinal/Abdomen Exam: soft, No tenderness, No mass Extremity Exam: normal inspection, normal range of motion Back Exam: normal inspection, normal range of motion, No CVA tenderness, No vertebral tenderness Male Genitalia Exam: deferred Rectal Exam: deferred Final Diagnosis/Problem List - Final Discharge Diagnosis/Problem (1) UTI (urinary tract infection) Status: Resolved (2) Dehydration Status: Resolved (3) Nausea and vomiting Status: Resolved (4) Renal failure Status: Chronic (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 Status: Chronic - Discharge Discharge Date: 07/21/17 Disposition: Home, Self-Care Condition: Stable Prescriptions: New Ciprofloxacin [Cipro 500 MG] 500 mg PO BID #20 tablet Continue Tamsulosin HCl 0.4 mg [Flomax 0.4 MG] 0.4 mg PO BID Bicalutamide [Casodex] 50 mg PO DAILY Valsartan/Hydrochlorothiazide [Valsartan-Hctz 80-12.5 mg Tab] 1 each PO EVENING MEAL Metoprolol Tartrate 50 mg [Lopressor 50 MG] 50 mg PO DAILY Lipase/Protease/Amylase [Fainaon Dr 24,000 Units Capsule] 2 each PO AC Insulin Glargine,Hum.rec.anlog [Lantus] 40 unit SQ BIDAC Simvastatin [Zocor] 40 mg PO HS Instructions: Urinary Tract Infection (UTI), Vomiting -- Adult Follow up with: DOROTHEA MOORE MD [Primary Care Provider] - 07/26/17 11:00 am Forms: Discharge Instructions
== END 2017-07-21 08:00 | disposition home or self-care (01) | DRG 690 ==
LOC: ED 09:01 → MED SURG 11:45 → OBSVTOIN 07-18 13:42
PROVIDERS: ADMIT General Practice; ATTEND General Practice
DX: N39.0 Urinary tract infection, site not specified (principal); C79.51 Secondary malignant neoplasm of bone; I25.810 Atherosclerosis of coronary artery bypass graft(s) without angina pectoris; Z85.46 Personal history of malignant neoplasm of prostate; E86.0 Dehydration; E11.9 Type 2 diabetes mellitus without complications; R11.2 Nausea with vomiting, unspecified; N19 Unspecified kidney failure; I10 Essential (primary) hypertension; Z79.899 Other long term (current) drug therapy; C61 Malignant neoplasm of prostate; J44.9 Chronic obstructive pulmonary disease, unspecified; E78.00 Pure hypercholesterolemia, unspecified; Z72.0 Tobacco use
CPT/HCPCS: 36000; 36415; 71010; 80053; 81000; 82150; 82962; 83036; 83690; 85025; 86850; 86900; 86901; 87086; 93005; 94760; 96360; 96361; 99285; G0378; J0696; J1956; J2405; A9270-GY

== ENCOUNTER 2017-07-23 17:17 | Inpatient (IN) | payer MEDICARE ==
[2017-07-23] MEDS: DUONEB 0.5-3 MG/3 ml Neb IH (17:50)
[2017-07-23] MEDS ORDERED: DUONEB 0.5-3 MG/3 ml Neb IH ×2 (17:50→21:36)
[2017-07-23 17:57] LABS: VBG BASE EXCESS 2.7 (-2.0-2.0); VBG CARBOXYHEMOGLOBIN 1.1 % T HGB (0.0-6.9); VBG HCO3- 26.2 meq/L (22-28); VBG HEMOGLOBIN 14.9; VBG O2 SATURATION 20.2 (95-100); VBG PCO2 36 mm/Hg (42-55); VBG PO2 13 mm/Hg (25-40); VBG POTASSIUM 3.5 (3.5-5.1); VBG pH 7.47 (7.32-7.42)
[2017-07-23 18:02] LABS: Lactic Acid 2.3 (0.4-2.0)
[2017-07-23] MEDS ORDERED: Sodium Chloride 0.9% 1000 ML 1,000 ML (18:02)
[2017-07-23] MEDS: Sodium Chloride 0.9% 1000 ML 1,000 ML IV ×3 (18:04→23:07)
[2017-07-23 18:06] LABS: BASOPHIL % 0.1 % (0.0-0.4); Basophil (Absolute #) 0.01 (0-0.4); Eosinophil % 2.3 % (0.00-5.0); Eosinophil (Absolute #) 0.18 (0-0.5); Granulocytes % 62.8 % (36.0-66.0); Hematocrit 31.7 % (42-50); Hemoglobin 9.8 gm/dl (12.5-18.0); Lymphocyte (Absolute #) 2.07 (1.0-4.6); Lymphocytes % 26.5 % (24.0-44.0); Mean Cell Volume 86.6 fl (78-100); Mean Corpuscular Hgb Concent. 30.9 g/dl (32-36); Mean Platelet Volume 9.7 fl (6-9.5); Monocyte (Absolute #) 0.65 (0.0-1.3); Monocytes % 8.3 % (0.0-12.0); Platelet Count 371 K/mm3 (150-450); Red Blood Count 3.66 M/mm3 (4.1-5.6); Red Cell Distribution Width 13.7 % (11.5-14.0); White Blood Count 7.8 K/mm3 (4.0-10.5)
[2017-07-23 18:13] LABS: ADD MANUAL DIFF? NO (NO); Mean Corpuscular Hemoglobin 26.7 pg (26-32)
[2017-07-23 18:43] LABS: ALBUMIN 2.6 g/dL (3.4-5.0); ALKALINE PHOSPHATASE 83 U/L (46-116); ANION GAP 16.8 MEQ/L (5-15); BLOOD UREA NITROGEN 10 mg/dL (9-20); CHLORIDE 101 mEq/L (98-107); Calcium 8.7 mg/dL (8.5-10.1); Carbon Dioxide 24.1 mEq/L (21-32); Creatinine 1 1.71 mg/dl (0.55-1.30); EST GLOMERULAR FILTRATION RATE 41 ML/MIN; Glucose 413 MG/DL (70-110); NT PRO BNP 1488 pg/ml (0-450); Potassium 3.3 mEq/L (3.5-5.1); SGOT/AST 16 U/L (15-37); SGPT/ALT 13 U/L (12-78); SODIUM 139 mEq/L (136-145); Total Protein 7.6 gm/dL (6.4-8.2)
[2017-07-23 18:48] LABS: TROPONIN < 0.017 ng/ml (0.000-0.056)
[2017-07-23] MEDS ORDERED: ROCEPHIN 1 Gm-D5w 50 ml Bag** 1 G/50 ML IVPB IV (19:10)
[2017-07-23] MEDS: ROCEPHIN 1 Gm-D5w 50 ml Bag** 1 G/50 ML IVPB IV (19:16)
[2017-07-23 19:18] LABS: Appearance CLOUDY (CLEAR); Bilirubin NEGATIVE (NEGATIVE); Blood 250 Ery/ul (0-5); Collection Type VOID; Glucose 1000 mg/dL (NEGATIVE); Ketones NEGATIVE (NEGATIVE); Leukocyte Esterase 2+ (NEGATIVE); Nitrite NEGATIVE (NEGATIVE); Protein,Urine Dip 30 (Negative); Urobilinogen NORMAL mg/dL (0-1)
[2017-07-23 19:19] LABS: ADD URINE CULTURE? YES (NO); Bacteria MANY /HPF (NEGATIVE); COMPLETE URINE MICROSCOPIC? YES; Epithelial Cells MODERATE /HPF (FEW); WBC >100 /HPF (0-5)
[2017-07-23 20:09] LABS: INFLUENZA B NEGATIVE (NEGATIVE); RESPIRATORY SYNCTIAL VIRUS NEGATIVE (Negative)
[2017-07-23 20:09] LABS: INFLUENZA A NEGATIVE (NEGATIVE)
[2017-07-23 21:03] LABS: Lactic Acid 1.8 (0.4-2.0)
[2017-07-23 21:45] LABS: TROPONIN < 0.017 ng/ml (0.000-0.056)
[2017-07-23] MEDS ORDERED: DIOVAN 80 MG (22:39)
[2017-07-23] MEDS ORDERED: hydroDIURIL 25 MG (22:39)
[2017-07-23] MEDS ORDERED: Lopressor 50 MG (22:40)
[2017-07-23] MEDS: HYDRODIURIL PO (23:11)
[2017-07-23] MEDS: DIOVAN PO (23:11)
[2017-07-23] MEDS: Lopressor 50 MG PO (23:12)
[2017-07-23] MEDS: NovoLOG Insulin SQ (23:32)
[2017-07-24 00:28] LABS: TROPONIN < 0.017 ng/ml (0.000-0.056)
[2017-07-24 06:08] LABS: BASOPHIL % 0.2 % (0.0-0.4); Basophil (Absolute #) 0.02 (0-0.4); Eosinophil % 2.1 % (0.00-5.0); Eosinophil (Absolute #) 0.21 (0-0.5); Granulocyte Absolute (ANC) 7.79 (1.4-6.9); Hematocrit 28.4 % (42-50); Hemoglobin 8.5 gm/dl (12.5-18.0); Lymphocyte (Absolute #) 1.32 (1.0-4.6); Lymphocytes % 13.1 % (24.0-44.0); Mean Cell Volume 87.9 fl (78-100); Mean Corpuscular Hemoglobin 26.3 pg (26-32); Mean Corpuscular Hgb Concent. 29.9 g/dl (32-36); Mean Platelet Volume 9.8 fl (6-9.5); Monocyte (Absolute #) 0.77 (0.0-1.3); Monocytes % 7.6 % (0.0-12.0); Platelet Count 336 K/mm3 (150-450); Red Blood Count 3.23 M/mm3 (4.1-5.6); Red Cell Distribution Width 13.6 % (11.5-14.0); White Blood Count 10.1 K/mm3 (4.0-10.5)
[2017-07-24 06:23] LABS: ADD MANUAL DIFF? NO (NO)
[2017-07-24 06:39] LABS: ALBUMIN 2.2 g/dL (3.4-5.0); ALKALINE PHOSPHATASE 73 U/L (46-116); ANION GAP 11.9 MEQ/L (5-15); BLOOD UREA NITROGEN 8 mg/dL (9-20); CHLORIDE 109 mEq/L (98-107); Calcium 7.9 mg/dL (8.5-10.1); Carbon Dioxide 27.3 mEq/L (21-32); Creatinine 1 1.34 mg/dl (0.55-1.30); EST GLOMERULAR FILTRATION RATE 54 ML/MIN; Glucose 83 MG/DL (70-110); Potassium 3.1 mEq/L (3.5-5.1); SGOT/AST 16 U/L (15-37); SGPT/ALT 12 U/L (12-78); SODIUM 145 mEq/L (136-145); Total Protein 6.6 gm/dL (6.4-8.2)
[2017-07-24 07:08] LABS: TROPONIN < 0.017 ng/ml (0.000-0.056)
[2017-07-24] MEDS ORDERED: PROTEASE PO (07:30)
[2017-07-24] MEDS ORDERED: LIPASE PO (07:30)
[2017-07-24] MEDS ORDERED: AMYLASE PO (07:30)
[2017-07-24] MEDS: PANCRELIPASE DR 5,000 UNIT CAP PO ×3 (09:24→17:26)
[2017-07-24] MEDS: Lopressor 50 MG PO (09:27)
[2017-07-24] MEDS: ZOCOR 20MG PO (09:27)
[2017-07-24] MEDS: Flomax 0.4 MG PO ×2 (09:27→20:59)
[2017-07-24] MEDS: CASODEX PO (09:28)
[2017-07-24] MEDS: ROCEPHIN 1 Gm-D5w 50 ml Bag** 1 G/50 ML IVPB IV (09:28)
[2017-07-24] MEDS: Lantus Insulin SQ (09:34)
[2017-07-24] MEDS ORDERED: BICALUTAMIDE 50 MG PO (10:00)
[2017-07-24] MEDS: POTASSIUM CHLORIDE 20 mEq IN WATER 100ML 20 MEQ/100 ML BAG IV ×2 (10:01→12:04)
[2017-07-24] MEDS: hydroDIURIL 25 MG PO (17:27)
[2017-07-24] MEDS: DIOVAN 80 MG PO (17:27)
[2017-07-24] MEDS ORDERED: HYDROCHLOROTHIAZIDE PO (18:00)
[2017-07-24] MEDS ORDERED: [UNRECOGNIZED DRUG - OTHER] PO (18:00)
[2017-07-24] MEDS ORDERED: VALSARTAN PO (18:00)
[2017-07-24 18:19] LABS: Potassium 3.3 mEq/L (3.5-5.1)
[2017-07-25] MEDS: PANCRELIPASE DR 5,000 UNIT CAP PO ×3 (07:35→15:52)
[2017-07-25] MEDS: Sodium Chloride 0.9% 1000 ML 1,000 ML IV ×3 (07:37→23:15)
[2017-07-25] MEDS: Lactated Ringers 1,000 ML IV (07:38)
[2017-07-25] MEDS: ROCEPHIN 1 Gm-D5w 50 ml Bag** 1 G/50 ML IVPB IV (10:16)
[2017-07-25] MEDS: Flomax 0.4 MG PO ×2 (10:17→19:59)
[2017-07-25] MEDS: ZOCOR 20MG PO (10:17)
[2017-07-25] MEDS: Lopressor 50 MG PO (10:18)
[2017-07-25] MEDS: CASODEX PO (10:18)
[2017-07-25] MEDS: Lantus Insulin SQ (10:22)
[2017-07-25] MEDS: DIOVAN 80 MG PO ×2 (12:39→17:20)
[2017-07-25] MEDS: xanAX 0.25 MG PO ×2 (15:51→22:39)
[2017-07-25] MEDS: hydroDIURIL 25 MG PO (17:19)
[2017-07-25] MEDS: NovoLOG Insulin SQ (22:39)
[2017-07-26] MEDS: PANCRELIPASE DR 5,000 UNIT CAP PO (07:35)
[2017-07-26] MEDS: ROCEPHIN 1 Gm-D5w 50 ml Bag** 1 G/50 ML IVPB IV (09:25)
[2017-07-26] MEDS: Flomax 0.4 MG PO (09:25)
[2017-07-26] MEDS: Lantus Insulin SQ (09:25)
[2017-07-26] MEDS: ZOCOR 20MG PO (09:26)
[2017-07-26] MEDS: xanAX 0.25 MG PO (09:26)
[2017-07-26] MEDS: CASODEX PO (09:26)
[2017-07-26] MEDS: Lopressor 50 MG PO (09:29)
== END 2017-07-26 10:50 | disposition home or self-care (01) ==
LOC: ED 17:17 → MED SURG 20:21
PROVIDERS: General Practice
CPT/HCPCS: 00740; 36000; 36415; 71045; 71250; 74176; 80053; 81000; 82805; 82962; 83605; 83880; 84132; 84484; 85025; 87040; 87086; 87631; 93005; 93041; 93268; 94640; 94760; 96360; 96365; 99100; 99285; G0378; J0696; J3480

== ENCOUNTER 2017-09-05 09:35 | Inpatient (IN) | payer MEDICARE ==
--- NOTE | 2017-09-05 09:53 | ERPHSYRPT ---
- History of Present Illness Time Seen by Provider: 09/05/17 09:44 Source: patient, EMS Exam Limitations: no limitations Physician History: The patient is an 82-year-old male brought in by ambulance from home where he has been having intermittent nausea, vomiting, and diarrhea for at least 2 months. He hasn't vomited today but did so yesterday. His diarrhea is at times very watery and other times loose. He is always lightheaded when he gets up. He passes out frequently when he stands up. He was so weak today he was not able to ambulate. He denies pain anywhere. He has seen his doctor several times for this. He no longer has any Zofran because he ran out. Yesterday he had a small meal but vomited. He hasn't had anything to eat today. His past medical history is significant for CAD, CABG, BPH, hypertension, high cholesterol, and diabetes. Timing/Duration: week(s) (8 ) Severity: severe Modifying Factors: Improves With: nothing Associated Symptoms: nausea, vomiting, loss of appetite, weakness, No abdominal pain Allergies/Adverse Reactions: No Known Drug Allergies Allergy (Verified 09/05/17 09:55) Home Medications: Bicalutamide [Casodex] 50 mg PO DAILY 08/18/16 [History] Insulin Glargine,Hum.rec.anlog [Lantus] 40 unit SQ DAILY 08/18/16 [History] Lipase/Protease/Amylase [Misty Dr 24,000 Units Capsule] 2 each PO AC 08/18/16 [ History] Metoprolol Tartrate 50 mg [Lopressor 50 MG] 50 mg PO DAILY 08/18/16 [ History] Simvastatin [Zocor] 40 mg PO DAILY 08/18/16 [History] Tamsulosin HCl 0.4 mg [Flomax 0.4 MG] 0.4 mg PO BID 08/18/16 [History] Valsartan/Hydrochlorothiazide [Valsartan-Hctz 80-12.5 mg Tab] 1 each PO EVENING MEAL 08/18/16 [History] Alprazolam 0.25 mg [xanAX 0.25 MG] 0.25 mg PO QIDPRN PRN 09/05/17 [History ] Cilostazol 100 mg [Pletal 100 MG] 50 mg PO BID 09/05/17 [History] Omeprazole 20 MG [Prilosec 20 mg] 20 mg PO DAILY 09/05/17 [History] Ondansetron ODT 4 MG [Zofran Odt 4 mg] 4 mg PO Q6H PRN PRN 09/05/17 [ History] Hx Tetanus, Diphtheria Vaccination/Date Given: Yes (UP TO DATE) Hx Influenza Vaccination/Date Given: Yes Hx Pneumococcal Vaccination/Date Given: Yes - Review of Systems Constitutional: Weakness Eyes: No Symptoms Ears, Nose, & Throat: No Symptoms Respiratory: No Cough, No Dyspnea Cardiac: No Chest Pain, No Edema, No Syncope Abdominal/Gastrointestinal: Nausea, Vomiting, Diarrhea Genitourinary Symptoms: No Dysuria Musculoskeletal: No Back Pain, No Neck Pain Skin: No Rash Neurological: No Dizziness, No Focal Weakness, No Sensory Changes Psychological: No Symptoms Endocrine: No Symptoms Hematologic/Lymphatic: No Symptoms Immunological/Allergic: No Symptoms All Other Systems: Reviewed and Negative - Past Medical History Pertinent Past Medical History: Yes Neurological History: No Pertinent History ENT History: Cataracts Cardiac History: Coronary Artery Disease, High Cholesterol, Hypertension Respiratory History: COPD Endocrine Medical History: Diabetes Type II Musculoskeletal History: No Pertinent History GI Medical History: No Pertinent History History: No Pertinent History Psycho-Social History: No Pertinent History Male Reproductive Disorders: Prostate Cancer - Past Surgical History Past Surgical History: Yes Neuro Surgical History: No Pertinent History Cardiac: CABG Respiratory: No Pertinent History Gastrointestinal: No Pertinent History Genitourinary: No Pertinent History Musculoskeletal: No Pertinent History Male Surgical History: Prostate Surgery - Social History Smoking Status: Current some day smoker How long have you smoked: 70 Exposure to second hand smoke: No Drug Use: none Patient Lives Alone: No - Nursing Vital Signs Nursing Vital Signs: Initial Vital Signs Temperature 98.6 F 09/05/17 09:36 Pulse Rate 120 H 09/05/17 09:36 Respiratory Rate 18 09/05/17 09:36 Blood Pressure 119/66 09/05/17 09:36 O2 Sat by Pulse Oximetry 99 09/05/17 09:36 Pain Scale Pain Intensity 0 - Physical Exam General Appearance: mild distress, cachetic Eye Exam: PERRL/EOMI, eyes nml inspection Ears, Nose, Throat Exam: dry mucous membranes Neck Exam: normal inspection, non-tender, supple, full range of motion Respiratory Exam: normal breath sounds, lungs clear, No respiratory distress Cardiovascular Exam: normal heart sounds, normal peripheral pulses, tachycardia Gastrointestinal/Abdomen Exam: soft, normal bowel sounds, No tenderness, No mass Rectal Exam: not done Back Exam: normal inspection, normal range of motion, No CVA tenderness, No vertebral tenderness Extremity Exam: normal inspection, normal range of motion, pelvis stable Neurologic Exam: alert, oriented x 3, cooperative, normal mood/affect, nml cerebellar function, nml station & gait, sensation nml, No motor deficits Skin Exam: normal color, warm, dry, No rash Lymphatic Exam: No adenopathy SpO2 Interpretation: normal Oxygen Delivery: Room Air - Course EKG Interpreted by Me: RATE, Sinus Tach, NORMAL AXIS, NORMAL INTERVALS, NORMAL QRS, NORMAL ST-T - CT Exams Abdomen/Pelvis CT Interpretation: Tele-radiologist Report, Other (stable bilateral hydronephrosis; stable urinary bladder wall thickening; diverticulosis; per Dr Pugh.) Ordered Tests: Active Orders 24 hr Category Date Time Status IV Insertion STAT Care 09/05/17 09:58 Active ABDOMEN AND PELVIS W/0 CONTRAS [CT] Stat Exams 09/05/17 09:59 Completed BLOOD CULTURE Stat Lab 09/05/17 10:12 Received CBC W DIFF Stat Lab 09/05/17 09:58 Completed CMP Stat Lab 09/05/17 10:12 Completed LIPASE Stat Lab 09/05/17 10:12 Completed Lactic Acid Stat Lab 09/05/17 10:12 Completed Manual Differential NC Stat Lab 09/05/17 09:58 Completed Medication Summary Discontinued Medications Generic Name Dose Route Start Last Admin Trade Name Freq PRN Reason Stop Dose Admin Famotidine 20 mg 09/05/17 09:58 09/05/17 10:09 Pepcid 20 Mg Vial IV 09/05/17 09:59 20 mg STAT ONE Administration Famotidine Confirm 09/05/17 10:08 Pepcid 20 Mg Vial Administered 09/05/17 10:09 Dose 20 mg IV .STK-MED ONE Sodium Chloride 1,000 mls @ 999 mls/hr 09/05/17 09:58 09/05/17 10:09 Sodium Chloride 0.9% 1000 Ml IV 09/05/17 10:58 999 mls/hr .Q1H1M STA Administration Sodium Chloride Confirm 09/05/17 10:08 Sodium Chloride 0.9% 1000 Ml Administered 09/05/17 10:09 Dose 1,000 mls @ ud .ROUTE .STK-MED ONE Sodium Chloride Confirm 09/05/17 12:02 Sodium Chloride 0.9% 1000 Ml Administered 09/05/17 12:03 Dose 1,000 mls @ ud .ROUTE .STK-MED ONE Sodium Chloride 1,000 mls @ 999 mls/hr 09/05/17 12:12 09/05/17 12:13 Sodium Chloride 0.9% 1000 Ml IV 09/05/17 13:12 999 mls/hr .Q1H1M STA Administration Nitroglycerin Confirm 09/05/17 13:09 Nitrostat 0.4 Mg (Ed) Administered 09/05/17 13:10 Dose 0.4 mg SL .STK-MED ONE Lab/Rad Data: Laboratory Result Diagrams 09/05/17 09:58 09/05/17 10:12 Laboratory Results 09/05/17 09/05/17 09/05/17 Range/Units 10:12 10:12 09:58 WBC 19.5 H (4.0-10.5) K/mm3 RBC 3.66 L (4.1-5.6) M/mm3 Hgb 10.0 L (12.5-18.0) gm/dl Hct 32.2 L (42-50) % MCV 88.0 (78-100) fl MCH 27.3 (26-32) pg MCHC 31.1 L (32-36) g/dl RDW 15.7 H (11.5-14.0) % Plt Count 401 (150-450) K/mm3 MPV 9.6 H (6-9.5) fl Sodium 127 L (136-145) mEq/L Potassium 4.4 (3.5-5.1) mEq/L Chloride 100 (98-107) mEq/L Carbon Dioxide 18.8 L (21-32) mEq/L Anion Gap 7.4 (5-15) MEQ/L BUN 41 H (9-20) mg/dL Creatinine 3.47 H (0.55-1.30) mg/dl Estimated GFR 18 ML/MIN Glucose 88 (70-110) MG/DL Lactic Acid 1.2 (0.4-2.0) Calcium 9.2 (8.5-10.1) mg/dL Total Bilirubin 0.50 (0.2-1.0) mg/dL AST 11 L (15-37) U/L ALT 8 L (12-78) U/L Alkaline Phosphatase 76 (46-116) U/L Serum Total Protein 7.7 (6.4-8.2) gm/dL Albumin 2.7 L (3.4-5.0) g/dL Lipase 29 L (73-393) U/L - Progress Progress: improved Progress Note: 09/05/17 13:19 Pt developed chest pain and was given NG 0.4 mg SL with complete resolution. 09/05/17 13:19 Discussed with : Ruddy Will see patient in: hospital (observation) Counseled pt/family regarding: lab results, diagnosis, rad results - Departure Time of Disposition: 13:41 Departure Disposition: Observation (pler DR Fox) Clinical Impression: Gastroenteritis, Dehydration, Renal failure Condition: Stable Critical Care Time: No Referrals: DOROTHEA MOORE MD [Primary Care Provider] -
[2017-09-05] MEDS ORDERED: Sodium Chloride 0.9% 1000 ML 1,000 ML IV STA ×2 (09:58→12:12)
[2017-09-05] MEDS ORDERED: Pepcid 20 MG VIAL IV ONE ×2 (09:58→10:08)
[2017-09-05] MEDS ORDERED: Sodium Chloride 0.9% 1000 ML 1,000 ML ONE ×2 (10:08→12:02)
[2017-09-05 10:23] LABS: Granulocyte Absolute (ANC) 14.89 (1.4-6.9); Hematocrit 32.2 % (42-50); Mean Corpuscular Hemoglobin 27.3 pg (26-32); Mean Corpuscular Hgb Concent. 31.1 g/dl (32-36); Mean Platelet Volume 9.6 fl (6-9.5); Platelet Count 401 K/mm3 (150-450); Red Blood Count 3.66 M/mm3 (4.1-5.6); Red Cell Distribution Width 15.7 % (11.5-14.0); White Blood Count 19.5 K/mm3 (4.0-10.5)
--- NOTE | 2017-09-05 11:04 | XRAY ---
Indication: Weakness, vomiting, and weight loss. History of prostate cancer. Multiple contiguous axial images obtained through the abdomen and pelvis without contrast without contrast as ordered. Comparison: July 24, 2017. Lung bases again demonstrates bibasilar dependent atelectasis/scarring, less than before. No effusion. Heart is not enlarged. Stable moderate/significant bilateral hydronephrosis, left lower renal micro-calculus, moderate bilateral hydroureter without ureteral calculus, and bilateral perinephric stranding/edema. New Greco catheter empties urinary bladder. Urinary bladder again demonstrates mild circumferential wall thickening either incomplete distention versus cystitis. Also stable subtle noncalcified soft tissue density in the posterior bladder wall. Noncontrasted stomach and bowel loops appear nonobstructed with clearing of previous fecal stasis. Stable descending/sigmoid diverticulosis with now mild sigmoid wall thickening either due to incomplete distention versus mild/early inflammatory process. No free fluid/air. Stable gallstones, hepatic cyst, calcified splenic granuloma, and left adrenal adenoma. Also stable pancreatic calcifications from chronic pancreatitis and pancreatic duct dilatation again greatest at the level of the pancreatic head. Remaining liver, pancreas, and right adrenal gland unremarkable for noncontrast exam. There remains heavy aortoiliac calcifications without AAA. Osseous structures intact again with degenerative changes throughout the spine. Impression: 1. Stable bilateral hydronephrosis, bilateral hydroureter, bilateral perinephric stranding, and left renal micro-calculus. 2. Stable circumferential urinary bladder wall thickening, either incomplete distention versus cystitis. Again query posterior bladder wall soft tissue mass. Direct cystoscopy may yield further information. 3. Again colonic diverticulosis with new sigmoid wall thickening either due to incomplete distention versus mild or early colitis diverticulitis. Correlate clinically. 4. Stable gallstones, hepatic cyst, left adrenal adenoma, pancreatic calcifications from chronic pancreatitis, and pancreatic duct dilatation. CT DI 17.52
[2017-09-05 11:14] LABS: ALBUMIN 2.7 g/dL (3.4-5.0); ANION GAP 7.4 MEQ/L (5-15); BILIRUBIN,TOTAL 0.5 mg/dL (0.2-1.0); Calcium 9.2 mg/dL (8.5-10.1); Carbon Dioxide 18.8 mEq/L (21-32); Creatinine 1 3.47 mg/dl (0.55-1.30); Potassium 4.4 mEq/L (3.5-5.1); Total Protein 7.7 gm/dL (6.4-8.2)
[2017-09-05] MEDS ORDERED: Nitrostat 0.4 MG (ED) SL ONE (13:09)
[2017-09-05 13:51] LABS: BASOPHIL % 0.1 % (0.0-0.4); Eosinophil % 0.7 % (0.00-5.0); Granulocytes % 76.3 % (36.0-66.0); Lymphocytes % 14.2 % (24.0-44.0); Monocytes % 8.7 % (0.0-12.0)
[2017-09-05 13:53] LABS: Basophil (Absolute #) 0.02 (0-0.4); Eosinophil (Absolute #) 0.13 (0-0.5); Lymphocyte (Absolute #) 2.76 (1.0-4.6)
[2017-09-05 13:54] LABS: Slide Review 1 YES
[2017-09-05 14:04] LABS: Appearance CLOUDY (CLEAR); Bilirubin NEGATIVE (NEGATIVE); Blood 250 Ery/ul (0-5); Glucose NEGATIVE (NEGATIVE); Ketones NEGATIVE (NEGATIVE); Leukocyte Esterase 2+ (NEGATIVE); Nitrite NEGATIVE (NEGATIVE); Protein,Urine Dip 100 (Negative); Urobilinogen NORMAL mg/dL (0-1)
[2017-09-05 14:26] LABS: Bacteria FEW /HPF (NEGATIVE); Epithelial Cells FEW /HPF (FEW); WBC >100 /HPF (0-5)
[2017-09-05] MEDS: Sodium Chloride 0.9% 1000 ML 1,000 ML IV SCH (16:13)
--- NOTE | 2017-09-05 16:49 | PCM.HP ---
History of Present Illness - Chief Complaint Chief Complaint: gastroenteritis History of Present Illness: is a 82 year old male who has previously been under the care of Dr Bella, he was admitted and I was consulted to be admitting physician at the request of his family. He has had a history of recurrent vomiting, dehydration and intermittent diarrhea for the last 2 months. He has lost weight and recently became weak in the last several days and has been falling. His called for an ambulance this morning after he fell. He denies much abdominal pain, occaisonally will have some vague aleida-umbilical abdominal cramping. His vomiting is intermittent but has been more persistent in the past few days. He was found to have a thick bladder wall and hydronephrosis on recent hospitalization, has had multiple negative urine cultures. He also has had bilateral perinephric stranding. He has a history of prostate cancer remotely with radioactive seed implants and hormonal therapy. 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 He has persistent bladder wall thickening and bilateral hydronephrosis at this time in spite of having a rayo cath for the last 2 weeks. He also incidentally has gallstones on CT scan but no wall thickening, he had an EGD by Dr Mcdonough. - Review of Systems Constitutional: Weakness, No Fever, No Chills Respiratory: No Cough, No Short Of Breath Cardiac: No Chest Pain, No Edema, No Syncope Abdominal/Gastrointestinal: Nausea, Vomiting, Diarrhea Genitourinary Symptoms: No Dysuria Skin: No Rash All Other Systems: Reviewed and Negative Medications & Allergies Home Medications: Home Medication List Bicalutamide [Casodex] 50 mg PO DAILY 08/18/16 [History Confirmed 09/05/17] Insulin Glargine,Hum.rec.anlog [Lantus] 40 unit SQ 1730 08/18/16 [History Confirmed 09/05/17] Lipase/Protease/Amylase [Misty Pierson 24,000 Units Capsule] 2 each PO AC 08/18/16 [ History Confirmed 09/05/17] Metoprolol Tartrate 50 mg [Lopressor 50 MG] 50 mg PO DAILY 08/18/16 [ History Confirmed 09/05/17] Simvastatin [Zocor] 40 mg PO HS 08/18/16 [History Confirmed 09/05/17] Tamsulosin HCl 0.4 mg [Flomax 0.4 MG] 0.4 mg PO BID 08/18/16 [History Confirmed 09/05/17] Valsartan/Hydrochlorothiazide [Valsartan-Hctz 80-12.5 mg Tab] 1 each PO HS 08/18 [History Confirmed 09/05/17] Alprazolam 0.25 mg [xanAX 0.25 MG] 0.25 mg PO QIDPRN PRN 09/05/17 [ History Confirmed 09/05/17] Cilostazol 100 mg [Pletal 100 MG] 50 mg PO BID 09/05/17 [History Confirmed 09/05/17] Omeprazole 20 MG [Prilosec 20 mg] 20 mg PO DAILY 09/05/17 [History Confirmed ] Ondansetron ODT 4 MG [Zofran Odt 4 mg] 4 mg PO Q6H PRN PRN 09/05/17 [ History Confirmed 09/05/17] Allergies/Adverse Reactions: Allergies Allergy/AdvReac Type Severity Reaction Status Date / Time No Known Drug Allergies Allergy Verified 09/05/17 09:55 - Past Medical History Past Medical History: Yes Neurological History: No Pertinent History ENT History: Cataracts Cardiac History: Coronary Artery Disease, High Cholesterol, Hypertension Respiratory History: COPD Endocrine Medical History: Diabetes Type II Musculoskelatal History: No Pertinent History GI Medical History: No Pertinent History History: No Pertinent History Pyscho-Social History: No Pertinent History Male Reproductive Disorders: Prostate Cancer Comment: bladder cancer - Past Surgical History Past Surgical History: Yes Neuro Surgical History: No Pertinent History Cardiac History: CABG Respiratory Surgery: No Pertinent History GI Surgical History: No Pertinent History Genitourinary Surgical Hx: No Pertinent History Musculskeletal Surgical Hx: No Pertinent History Male Surgical History: Prostate Surgery - Social History Smoking Status: Current some day smoker How long have you smoked: 70 Exposure to second hand smoke: No Alcohol: None Drug Use: none - Physical Exam Vital Signs: Vital Signs - 24 hr Temp Pulse Resp BP Pulse Ox 09/05/17 14:50 99.2 F 79 18 124/60 99 02/15/18 13:54 123 H 18 116/59 98 09/05/17 13:00 120 H 18 104/41 94 L 09/05/17 11:50 120 H 20 107/59 09/05/17 10:36 122 H 16 100/57 99 09/05/17 09:36 98.6 F 120 H 18 119/66 99 Oxygen-Last 24 hours O2 Percentage 3 Liters = 32% O2 Percentage 2 Liters = 28% O2 Percentage 3 Liters = 32% General Appearance: thin, other (frail and weak) Neurologic Exam: alert Eye Exam: PERRL/EOMI, eyes nml inspection Respiratory Exam: normal breath sounds, lungs clear, No respiratory distress Cardiovascular Exam: regular rate/rhythm, normal heart sounds, normal peripheral pulses Gastrointestinal/Abdomen Exam: soft, normal bowel sounds, No tenderness, No mass Extremity Exam: normal inspection, normal range of motion, pelvis stable Skin Exam: normal color, warm, dry, No rash Results - Labs Lab/Micro Results: Lab Results-Last 24 Hours 09/05/17 Range/Units 15:30 Troponin I < 0.017 (0.000-0.056) ng/ml - Radiology Impressions Radiology Exams & Impressions: Radiology Procedures Category Date Time Status GALLBLADDER [US] Routine Exams 09/06/17 07:00 Ordered Renal Ultrasound [KIDNEY] [US] Routine Exams 09/06/17 07:00 Ordered Assessment/Plan (1) Acute renal failure Current Visit: Yes Status: Acute Assessment & Plan: will change out rayo and hydrate overnight. discussed the case with Dr Renee who recommends hydration and repeat kidney ultrasound to see if there is any improvement in the hydronephrosis, if not might need renal stending frances and cystoscopy to evaluate for post-obstructive uropathy. (2) Hydronephrosis due to obstruction of bladder Current Visit: Yes Status: Acute Code(s): N13.30 - UNSPECIFIED HYDRONEPHROSIS; N32.0 - BLADDER-NECK OBSTRUCTION (3) Vomiting Current Visit: Yes Status: Acute Code(s): R11.10 - VOMITING, UNSPECIFIED (4) Diarrhea Current Visit: Yes Status: Acute Assessment & Plan: check stool studies Code(s): R19.7 - DIARRHEA, UNSPECIFIED (5) Gallstones Current Visit: Yes Status: Acute Code(s): K80.20 - CALCULUS OF GALLBLADDER W /O CHOLECYSTITIS W/O OBSTRUCTION (6) Dehydration Current Visit: Yes Status: Acute Assessment & Plan: will rehydrate and see how renal function reacts Code(s): E86.0 - DEHYDRATION
[2017-09-05] MEDS ORDERED: ROCEPHIN 1 Gm-D5w 50 ml Bag** 1 G/50 ML IVPB IV SCH (17:00)
[2017-09-05] MEDS ORDERED: xanAX 0.25 MG PO PRN (17:08)
[2017-09-05] MEDS ORDERED: MEDICATION INTERVENTION MC PRN (17:12)
[2017-09-05] MEDS: Pletal 100 MG PO SCH (22:30)
[2017-09-05] MEDS: Flomax 0.4 MG PO SCH (22:30)
[2017-09-06 02:06] LABS: 027 TOX PROD PRESUMPTIVE NEGATIVE (NEGATIVE); TOXIGENIC C. DIFF ORG POSITIVE (NEGATIVE)
[2017-09-06] MEDS: FLAGYL 500 MG IVPB 500 MG/100 ML BAG IV SCH ×4 (02:24→18:12)
[2017-09-06] MEDS: TYLENOL 325 MG PO PRN ×2 (03:51→09:57)
[2017-09-06] MEDS: Sodium Chloride 0.9% 1000 ML 1,000 ML IV SCH (03:52)
[2017-09-06 06:01] LABS: Granulocyte Absolute (ANC) 11.85 (1.4-6.9); Hematocrit 25.8 % (42-50); Hemoglobin 7.7 gm/dl (12.5-18.0); Mean Cell Volume 89.9 fl (78-100); Mean Corpuscular Hemoglobin 26.8 pg (26-32); Mean Corpuscular Hgb Concent. 29.8 g/dl (32-36); Mean Platelet Volume 9.9 fl (6-9.5); Platelet Count 299 K/mm3 (150-450); Red Blood Count 2.87 M/mm3 (4.1-5.6); Red Cell Distribution Width 15.5 % (11.5-14.0); White Blood Count 15.9 K/mm3 (4.0-10.5)
[2017-09-06 06:15] LABS: ALBUMIN 1.9 g/dL (3.4-5.0); ALKALINE PHOSPHATASE 58 U/L (46-116); ANION GAP 14.4 MEQ/L (5-15); BLOOD UREA NITROGEN 36 mg/dL (9-20); CHLORIDE 107 mEq/L (98-107); Calcium 7.9 mg/dL (8.5-10.1); Carbon Dioxide 19.2 mEq/L (21-32); Creatinine 1 2.71 mg/dl (0.55-1.30); EST GLOMERULAR FILTRATION RATE 24 ML/MIN; Glucose 158 MG/DL (70-110); Potassium 3.9 mEq/L (3.5-5.1); SGOT/AST 9 U/L (15-37); SODIUM 137 mEq/L (136-145); Total Protein 5.7 gm/dL (6.4-8.2)
[2017-09-06 06:37] LABS: SGPT/ALT < 6 U/L (12-78)
[2017-09-06 07:20] LABS: BAND 2 % (0.0-2.0); Eosinophil 2 % (0.00-3.0); Hypochromia RARE; Lymphocytes 12 % (24-44); Monocyte 4 % (0.0-12.0); Neutrophils 80 % (36.-66.); Platelet Estimate NORMAL (NORMAL); Polychromasia 1+; Total Cells Counted 100; Toxic Granulation 1+
[2017-09-06] MEDS ORDERED: AMYLASE PO SCH (07:30)
[2017-09-06] MEDS ORDERED: LIPASE PO SCH (07:30)
[2017-09-06] MEDS ORDERED: PROTEASE PO SCH (07:30)
--- NOTE | 2017-09-06 08:32 | PCM.NOTE ---
Date and Time: 09/06/17 0830 Subjective Assessment: patient feeling slightly better today, had significant diarrhea overnight. no vomiting, denies pain. had ultrasounds this morning Objective Exam General Appearance: no apparent distress, alert, thin Skin Exam: normal color, warm, dry Eye Exam: PERRL, EOMI, eyes nml inspection Respiratory Exam: normal breath sounds, lungs clear, No respiratory distress Cardiovascular Exam: regular rate/rhythm, normal heart sounds Gastrointestinal/Abdomen Exam: soft, No tenderness, No mass Extremity Exam: normal inspection, normal range of motion OBJECTIVE DATA Vital Signs: Vital Signs - 24 hr Temp Pulse Resp BP Pulse Ox 09/06/17 03:46 99.7 F 86 19 100/49 91 L 09/05/17 23:49 99.9 F 99 H 28 H 122/58 98 09/05/17 20:48 96 H 22 93 L 09/05/17 20:00 99.2 F 95 H 20 125/56 97 09/05/17 16:50 99.2 F 78 20 122/62 99 09/05/17 16:24 99.2 F 79 18 124/60 99 09/05/17 14:50 99.2 F 79 18 124/60 99 09/05/17 13:54 123 H 18 116/59 98 09/05/17 13:00 120 H 18 104/41 94 L 09/05/17 11:50 120 H 20 107/59 09/05/17 10:36 122 H 16 100/57 99 09/05/17 09:36 98.6 F 120 H 18 119/66 99 Oxygen-Last 24 hours O2 Percentage 2 Liters = 28% O2 Percentage 2 Liters = 28% O2 Percentage 2 Liters = 28% O2 Percentage 2 Liters = 28% O2 Percentage 2 Liters = 28% O2 Percentage 3 Liters = 32% O2 Percentage 2 Liters = 28% O2 Percentage 3 Liters = 32% Pain Assessment - Last Documented Pain Intensity 0 Pain Scale Used 0-10 Pain Scale Intake and Output: Intake & Output 09/03/17 09/04/17 09/05/17 09/06/17 11:59 11:59 11:59 11:59 Intake Total 1827 Output Total 1000 Balance 827 Weight 66.1 kg Lab Results: Accuchecks Date 09/06/17 Date 09/06/17 Date 09/05/17 Time 03:00 Time 00:00 Time 22:00 Accucheck Value: 155 Accucheck Value: 171 Accucheck Value: 203 Accucheck Value: 72 Lab Results-Last 24 Hours 09/05/17 09/05/17 09/05/17 Range/Units 15:30 18:20 21:11 WBC (4.0-10.5) K/mm3 RBC (4.1-5.6) M/mm3 Hgb (12.5-18.0) gm/dl Hct (42-50) % MCV (78-100) fl MCH (26-32) pg MCHC (32-36) g/dl RDW (11.5-14.0) % Plt Count (150-450) K/mm3 MPV (6-9.5) fl Segmented Neutrophils (36.-66.) % Band Neutrophils (0.0-2.0) % Lymphocytes (Manual) (24-44) % Monocytes (Manual) (0.0-12.0) % Eosinophils (Manual) (0.00-3.0) % Differential Comment Toxic Granulation Platelet Estimate (NORMAL) Polychromasia Hypochromasia Sodium (136-145) mEq/L Potassium (3.5-5.1) mEq/L Chloride (98-107) mEq/L Carbon Dioxide (21-32) mEq/L Anion Gap (5-15) MEQ/L BUN (9-20) mg/dL Creatinine (0.55-1.30) mg/dl Estimated GFR ML/MIN Glucose (70-110) MG/DL Lactic Acid (0.4-2.0) Calcium (8.5-10.1) mg/dL Total Bilirubin (0.2-1.0) mg/dL AST (15-37) U/L ALT (12-78) U/L Alkaline Phosphatase (46-116) U/L Troponin I < 0.017 < 0.017 < 0.017 (0.000-0.056) ng/ml Serum Total Protein (6.4-8.2) gm/dL Albumin (3.4-5.0) g/dL Stl C. diff Tox B Gene (NEGATIVE) C.difficile 027-NAP1-B1 (NEGATIVE) 09/06/17 09/06/17 09/06/17 Range/Units 00:00 00:21 05:25 WBC (4.0-10.5) K/mm3 RBC (4.1-5.6) M/mm3 Hgb (12.5-18.0) gm/dl Hct (42-50) % MCV (78-100) fl MCH (26-32) pg MCHC (32-36) g/dl RDW (11.5-14.0) % Plt Count (150-450) K/mm3 MPV (6-9.5) fl Segmented Neutrophils (36.-66.) % Band Neutrophils (0.0-2.0) % Lymphocytes (Manual) (24-44) % Monocytes (Manual) (0.0-12.0) % Eosinophils (Manual) (0.00-3.0) % Differential Comment Toxic Granulation Platelet Estimate (NORMAL) Polychromasia Hypochromasia Sodium (136-145) mEq/L Potassium (3.5-5.1) mEq/L Chloride (98-107) mEq/L Carbon Dioxide (21-32) mEq/L Anion Gap (5-15) MEQ/L BUN (9-20) mg/dL Creatinine (0.55-1.30) mg/dl Estimated GFR ML/MIN Glucose (70-110) MG/DL Lactic Acid 0.5 (0.4-2.0) Calcium (8.5-10.1) mg/dL Total Bilirubin (0.2-1.0) mg/dL AST (15-37) U/L ALT (12-78) U/L Alkaline Phosphatase (46-116) U/L Troponin I < 0.017 (0.000-0.056) ng/ml Serum Total Protein (6.4-8.2) gm/dL Albumin (3.4-5.0) g/dL Stl C. diff Tox B Gene POSITIVE (NEGATIVE) C.difficile 027-NAP1-B1 PRESUMPTIVE NEGATIVE (NEGATIVE) 09/06/17 09/06/17 Range/Units 05:43 05:43 WBC 15.9 H (4.0-10.5) K/mm3 RBC 2.87 L (4.1-5.6) M/mm3 Hgb 7.7 L (12.5-18.0) gm/dl Hct 25.8 L (42-50) % MCV 89.9 (78-100) fl MCH 26.8 (26-32) pg MCHC 29.8 L (32-36) g/dl RDW 15.5 H (11.5-14.0) % Plt Count 299 (150-450) K/mm3 MPV 9.9 H (6-9.5) fl Segmented Neutrophils 80 H (36.-66.) % Band Neutrophils 2 (0.0-2.0) % Lymphocytes (Manual) 12 L (24-44) % Monocytes (Manual) 4 (0.0-12.0) % Eosinophils (Manual) 2 (0.00-3.0) % Differential Comment ABNORMAL Toxic Granulation 1+ Platelet Estimate NORMAL (NORMAL) Polychromasia 1+ Hypochromasia RARE Sodium 137 (136-145) mEq/L Potassium 3.9 (3.5-5.1) mEq/L Chloride 107 (98-107) mEq/L Carbon Dioxide 19.2 L (21-32) mEq/L Anion Gap 14.4 (5-15) MEQ/L BUN 36 H (9-20) mg/dL Creatinine 2.71 H (0.55-1.30) mg/dl Estimated GFR 24 ML/MIN Glucose 158 H (70-110) MG/DL Lactic Acid (0.4-2.0) Calcium 7.9 L (8.5-10.1) mg/dL Total Bilirubin 0.20 (0.2-1.0) mg/dL AST 9 L (15-37) U/L ALT < 6 L (12-78) U/L Alkaline Phosphatase 58 (46-116) U/L Troponin I (0.000-0.056) ng/ml Serum Total Protein 5.7 L (6.4-8.2) gm/dL Albumin 1.9 L (3.4-5.0) g/dL Stl C. diff Tox B Gene (NEGATIVE) C.difficile 027-NAP1-B1 (NEGATIVE) Radiology Exams: Radiology Procedures Category Date Time Status GALLBLADDER [US] Routine Exams 09/06/17 07:00 Taken Renal Ultrasound [KIDNEY] [US] Routine Exams 09/06/17 07:00 Taken Assessment/Plan (1) Acute renal failure Current Visit: Yes Status: Acute Assessment & Plan: improving with hydration (2) Hydronephrosis due to obstruction of bladder Current Visit: Yes Status: Acute Assessment & Plan: renal u/s pending Code(s): N13.30 - UNSPECIFIED HYDRONEPHROSIS; N32.0 - BLADDER-NECK OBSTRUCTION (3) Vomiting Current Visit: Yes Status: Acute Code(s): R11.10 - VOMITING, UNSPECIFIED (4) Gallstones Current Visit: Yes Status: Acute Code(s): K80.20 - CALCULUS OF GALLBLADDER W /O CHOLECYSTITIS W/O OBSTRUCTION (5) Dehydration Current Visit: Yes Status: Acute Code(s): E86.0 - DEHYDRATION (6) C. difficile colitis Current Visit: Yes Status: Acute Assessment & Plan: on IV flagyl, will add po vanc
--- NOTE | 2017-09-06 09:02 | XRAY ---
Indication: Bilateral hydronephrosis on recent CT. Greco catheter 2 weeks. Two-dimensional renal sonogram performed. Comparison: None Both kidneys normal in reniform shape with normal color perfusion. Right kidney measures 12.8 x 6.3 x 4.3 cm and the left measures 11.5 x 5.6 x 5.9 cm. 1.4 cm left lower cortical cyst. Both kidneys are moderately hydronephrotic without perinephric fluid. Visualized mid to proximal left and right ureters are also abnormally distended. Balloon tip Greco catheter seen in a empty urinary bladder. Impression: Bilateral hydronephrosis and hydroureter further detailed on CT abdomen/pelvis one day earlier.
--- NOTE | 2017-09-06 09:05 | XRAY ---
Indication: Gallstones on recent CT. Two-dimensional right upper quadrant abdominal sonogram performed. Comparison: None Gallbladder normally distended with a few tiny gallstones, largest 1 cm. No gallbladder wall thickening or pericholecystic fluid. Common bile duct measures 5.2 mm. No intrahepatic biliary distention. Right kidney measures 12.4 cm in length and demonstrates moderate hydronephrosis without suspicious mass or perinephric fluid. Pancreas not well-seen due to overlying bowel gas. No ascites. Impression: 1. A few tiny gallstones. Negative for acute cholecystitis or biliary distention. 2. Hydronephrotic right kidney further detailed on CT abdomen/pelvis one day earlier. 3. Pancreas obscured due to bowel gas.
[2017-09-06] MEDS: Zofran 4 MG/2 ML VIAL IV PRN ×2 (09:57→21:57)
[2017-09-06] MEDS ORDERED: VANCOCIN 500 MG VIAL PO SCH (10:00)
[2017-09-06] MEDS: Pletal 100 MG PO SCH ×2 (11:22→21:57)
[2017-09-06] MEDS: Flomax 0.4 MG PO SCH ×2 (11:23→21:56)
[2017-09-06] MEDS: NON-FORMULARY ITEM PO SCH ×4 (11:23→21:56)
[2017-09-06] MEDS: Lopressor 50 MG PO SCH (11:23)
[2017-09-06] MEDS ORDERED: Nitrostat 0.4 MG (ED) SL ONE (14:41)
[2017-09-06] MEDS: Sodium Chloride 0.9% W/ 20 mEq KCl/LITER 1,000 ML IV SCH ×2 (17:14→21:56)
[2017-09-06] MEDS: NovoLOG Insulin SQ PRN (21:58)
[2017-09-07] MEDS: FLAGYL 500 MG IVPB 500 MG/100 ML BAG IV SCH ×4 (00:40→16:53)
[2017-09-07] MEDS: TYLENOL 325 MG PO PRN ×4 (00:40→18:38)
[2017-09-07 06:14] LABS: BASOPHIL % 0.1 % (0.0-0.4); Basophil (Absolute #) 0.01 (0-0.4); Eosinophil % 3.2 % (0.00-5.0); Eosinophil (Absolute #) 0.43 (0-0.5); Granulocyte Absolute (ANC) 10.16 (1.4-6.9); Granulocytes % 74.8 % (36.0-66.0); Hematocrit 25.4 % (42-50); Hemoglobin 7.6 gm/dl (12.5-18.0); Lymphocyte (Absolute #) 1.83 (1.0-4.6); Lymphocytes % 13.5 % (24.0-44.0); Mean Cell Volume 90.1 fl (78-100); Mean Corpuscular Hgb Concent. 29.9 g/dl (32-36); Mean Platelet Volume 10.1 fl (6-9.5); Monocyte (Absolute #) 1.14 (0.0-1.3); Monocytes % 8.4 % (0.0-12.0); Platelet Count 290 K/mm3 (150-450); Red Blood Count 2.82 M/mm3 (4.1-5.6); Red Cell Distribution Width 15.4 % (11.5-14.0); White Blood Count 13.6 K/mm3 (4.0-10.5)
[2017-09-07 06:17] LABS: Mean Corpuscular Hemoglobin 26.9 pg (26-32)
[2017-09-07 06:49] LABS: ALBUMIN 1.8 g/dL (3.4-5.0); ANION GAP 14.8 MEQ/L (5-15); BILIRUBIN,TOTAL 0.2 mg/dL (0.2-1.0); Calcium 7.5 mg/dL (8.5-10.1); Carbon Dioxide 17.4 mEq/L (21-32); Creatinine 1 2.15 mg/dl (0.55-1.30); Potassium 4.1 mEq/L (3.5-5.1); Total Protein 5.5 gm/dL (6.4-8.2)
[2017-09-07] MEDS: Zofran 4 MG/2 ML VIAL IV PRN ×2 (09:14→16:55)
[2017-09-07] MEDS: NON-FORMULARY ITEM PO SCH ×4 (09:20→21:39)
[2017-09-07] MEDS: Pletal 100 MG PO SCH ×2 (09:27→21:38)
[2017-09-07] MEDS: Lopressor 50 MG PO SCH (09:28)
[2017-09-07] MEDS: Flomax 0.4 MG PO SCH ×2 (09:28→21:38)
--- NOTE | 2017-09-07 11:27 | PCM.NOTE ---
Date and Time: 09/07/17 1122 Subjective Assessment: patient feeling a little better today, tolerated some fruit this morning but not eating a whole lot. diarrhea is slowing down overnight and strength seems to be improved on his feet. Objective Exam General Appearance: no apparent distress, alert Respiratory Exam: normal breath sounds, lungs clear, No respiratory distress Cardiovascular Exam: regular rate/rhythm, normal heart sounds Gastrointestinal/Abdomen Exam: soft, No tenderness, No mass OBJECTIVE DATA Vital Signs: Vital Signs - 24 hr Temp Pulse Resp BP Pulse Ox 09/07/17 07:21 97.8 F 68 20 118/58 96 09/07/17 04:00 97.7 F 79 24 111/57 98 09/07/17 00:00 100.9 F 86 20 130/60 95 09/06/17 20:10 78 20 93 L 09/06/17 20:00 99 F 78 20 135/89 92 L 09/06/17 16:29 96.1 F 64 20 128/57 09/06/17 15:05 93 L 09/06/17 13:49 96.8 F 67 20 108/42 93 L 09/06/17 12:00 96.5 F 80 16 111/47 Oxygen-Last 24 hours O2 Percentage 2 Liters = 28% O2 Percentage 2 Liters = 28% O2 Percentage 2 Liters = 28% O2 Percentage 2 Liters = 28% O2 Percentage 2 Liters = 28% Pain Assessment - Last Documented Pain Intensity 6 Pain Scale Used 0-10 Pain Scale Intake and Output: Intake & Output 09/04/17 09/05/17 09/06/17 09/07/17 11:59 11:59 11:59 11:59 Intake Total 480 3894 Output Total 5249 Balance 480 2069 Weight 66.1 kg 66.4 kg Lab Results: Accuchecks Date 09/07/17 Date 09/07/17 Date 09/07/17 Date 09/06/17 Date 09/06/1709/06/17 Time 08:18 Time 05:35 Time 00:00 Time 21:37 Time 16:00 Accucheck Value: 132 Accucheck Value: 132 Accucheck Value: 99 Accucheck Value: 298 Accucheck Value: 292 Accucheck Value: 182 Lab Results-Last 24 Hours 09/07/17 09/07/17 Range/Units 05:30 05:30 WBC 13.6 H (4.0-10.5) K/mm3 RBC 2.82 L (4.1-5.6) M/mm3 Hgb 7.6 L (12.5-18.0) gm/dl Hct 25.4 L (42-50) % MCV 90.1 (78-100) fl MCH 26.9 (26-32) pg MCHC 29.9 L (32-36) g/dl RDW 15.4 H (11.5-14.0) % Plt Count 290 (150-450) K/mm3 MPV 10.1 H (6-9.5) fl Gran % 74.8 H (36.0-66.0) % Lymphocytes % 13.5 L (24.0-44.0) % Monocytes % 8.4 (0.0-12.0) % Eosinophils % 3.2 (0.00-5.0) % Basophils % 0.1 (0.0-0.4) % Basophils # 0.01 (0-0.4) Sodium 137 (136-145) mEq/L Potassium 4.1 (3.5-5.1) mEq/L Chloride 109 H (98-107) mEq/L Carbon Dioxide 17.4 L (21-32) mEq/L Anion Gap 14.8 (5-15) MEQ/L BUN 28 H (9-20) mg/dL Creatinine 2.15 H (0.55-1.30) mg/dl Estimated GFR 31 ML/MIN Glucose 131 H (70-110) MG/DL Calcium 7.5 L (8.5-10.1) mg/dL Magnesium 1.3 L (1.8-2.4) mg/dL Total Bilirubin 0.20 (0.2-1.0) mg/dL AST 13 L (15-37) U/L ALT 8 L (12-78) U/L Alkaline Phosphatase 66 (46-116) U/L Serum Total Protein 5.5 L (6.4-8.2) gm/dL Albumin 1.8 L (3.4-5.0) g/dL Assessment/Plan (1) Acute renal failure Current Visit: Yes Status: Acute Assessment & Plan: improving with IV hydration, rayo in place (2) Hydronephrosis due to obstruction of bladder Current Visit: Yes Status: Acute Code(s): N13.30 - UNSPECIFIED HYDRONEPHROSIS; N32.0 - BLADDER-NECK OBSTRUCTION (3) Vomiting Current Visit: Yes Status: Acute Code(s): R11.10 - VOMITING, UNSPECIFIED (4) Gallstones Current Visit: Yes Status: Acute Code(s): K80.20 - CALCULUS OF GALLBLADDER W /O CHOLECYSTITIS W/O OBSTRUCTION (5) Dehydration Current Visit: Yes Status: Acute Code(s): E86.0 - DEHYDRATION (6) C. difficile colitis Current Visit: Yes Status: Acute Assessment & Plan: on po vanc and IV flagyl (7) UTI (urinary tract infection) Current Visit: Yes Status: Acute Assessment & Plan: will continue rocephin, received 1 dose on arrival and grew klebsiella sens to ceftriaxone Code(s): N39.0 - URINARY TRACT INFECTION, SITE NOT SPECIFIED
[2017-09-07] MEDS: ROCEPHIN 1 Gm-D5w 50 ml Bag** 1 G/50 ML IVPB IV SCH (12:16)
[2017-09-07] MEDS: NovoLOG Insulin SQ PRN ×2 (12:21→16:54)
[2017-09-07] MEDS: Sodium Chloride 0.9% W/ 20 mEq KCl/LITER 1,000 ML IV SCH (16:53)
[2017-09-08] MEDS: FLAGYL 500 MG IVPB 500 MG/100 ML BAG IV SCH ×4 (00:10→17:04)
[2017-09-08] MEDS: Sodium Chloride 0.9% W/ 20 mEq KCl/LITER 1,000 ML IV SCH ×4 (05:15→22:09)
[2017-09-08 05:54] LABS: BASOPHIL % 0.2 % (0.0-0.4); Basophil (Absolute #) 0.02 (0-0.4); Eosinophil % 5.9 % (0.00-5.0); Eosinophil (Absolute #) 0.77 (0-0.5); Granulocyte Absolute (ANC) 9.54 (1.4-6.9); Granulocytes % 72.9 % (36.0-66.0); Hematocrit 26.8 % (42-50); Lymphocytes % 14.5 % (24.0-44.0); Mean Cell Volume 90.2 fl (78-100); Mean Corpuscular Hemoglobin 26.9 pg (26-32); Mean Corpuscular Hgb Concent. 29.9 g/dl (32-36); Mean Platelet Volume 9.8 fl (6-9.5); Monocyte (Absolute #) 0.85 (0.0-1.3); Monocytes % 6.5 % (0.0-12.0); Platelet Count 321 K/mm3 (150-450); Red Blood Count 2.97 M/mm3 (4.1-5.6); Red Cell Distribution Width 15.8 % (11.5-14.0); White Blood Count 13.1 K/mm3 (4.0-10.5)
[2017-09-08 06:05] LABS: ALBUMIN 1.9 g/dL (3.4-5.0); ALKALINE PHOSPHATASE 67 U/L (46-116); ANION GAP 14.1 MEQ/L (5-15); BLOOD UREA NITROGEN 20 mg/dL (9-20); CHLORIDE 113 mEq/L (98-107); Calcium 7.8 mg/dL (8.5-10.1); Carbon Dioxide 17.7 mEq/L (21-32); Creatinine 1 1.76 mg/dl (0.55-1.30); EST GLOMERULAR FILTRATION RATE 40 ML/MIN; Glucose 156 MG/DL (70-110); SGOT/AST 10 U/L (15-37); SODIUM 141 mEq/L (136-145); Total Protein 5.7 gm/dL (6.4-8.2)
[2017-09-08 06:45] LABS: SGPT/ALT < 6 U/L (12-78)
--- NOTE | 2017-09-08 08:23 | PCM.NOTE ---
Date and Time: 09/08/17820 Subjective Assessment: doing well today, still had a lot of diarrhea last night and c/o left toe pain. this is a chronic issue, there is no redness or discoloration/swelling Objective Exam General Appearance: no apparent distress, alert, thin Skin Exam: normal color, warm, dry Respiratory Exam: normal breath sounds, lungs clear, No respiratory distress Cardiovascular Exam: regular rate/rhythm, normal heart sounds Gastrointestinal/Abdomen Exam: soft, No tenderness, No mass OBJECTIVE DATA Vital Signs: Vital Signs - 24 hr Temp Pulse Resp BP BP Pulse Ox 09/08/17 07:29 97.8 F 74 18 118/66 97 09/08/17 04:00 97.9 F 83 18 115/51 99 09/08/17 00:00 97.9 F 73 22 125/56 100 09/07/17 22:40 68 20 98 09/07/17 20:00 97.4 F 65 20 105/51 98 09/07/17 15:59 97.8 F 70 20 111/64 95 09/07/17 12:32 98 F 72 18 109/67 96 09/07/17 12:03 94 L Oxygen-Last 24 hours O2 Percentage 2 Liters = 28% Oxygen Flowrate (L/min)-RT 2 Oxygen Flowrate (L/min)-RT 2 Oxygen Flowrate (L/min)-RT 2 Pain Assessment - Last Documented Pain Intensity 4 Pain Scale Used 0-10 Pain Scale Intake and Output: Intake & Output 09/05/17 09/06/17 09/07/17 09/08/17 11:59 11:59 11:59 11:59 Intake Total 480 3894 2701 Output Total 1012 2715 Balance 480 2069 476 Weight 66.1 kg 66.4 kg 66.2 kg Lab Results: Accuchecks Date 09/08/17 Date 09/07/17 Date 09/07/17 Time 07:31 Time 16:30 Time 11:30 Accucheck Value: 139 Accucheck Value: 135 Accucheck Value: 146 Accucheck Value: 88 Accucheck Value: 216 Accucheck Value: 206 Lab Results-Last 24 Hours 09/08/17 09/08/17 Range/Units 05:20 05:20 WBC 13.1 H (4.0-10.5) K/mm3 RBC 2.97 L (4.1-5.6) M/mm3 Hgb 8.0 L (12.5-18.0) gm/dl Hct 26.8 L (42-50) % MCV 90.2 (78-100) fl MCH 26.9 (26-32) pg MCHC 29.9 L (32-36) g/dl RDW 15.8 H (11.5-14.0) % Plt Count 321 (150-450) K/mm3 MPV 9.8 H (6-9.5) fl Gran % 72.9 H (36.0-66.0) % Lymphocytes % 14.5 L (24.0-44.0) % Monocytes % 6.5 (0.0-12.0) % Eosinophils % 5.9 H (0.00-5.0) % Basophils % 0.2 (0.0-0.4) % Basophils # 0.02 (0-0.4) Sodium 141 (136-145) mEq/L Potassium 4.0 (3.5-5.1) mEq/L Chloride 113 H (98-107) mEq/L Carbon Dioxide 17.7 L (21-32) mEq/L Anion Gap 14.1 (5-15) MEQ/L BUN 20 (9-20) mg/dL Creatinine 1.76 H (0.55-1.30) mg/dl Estimated GFR 40 ML/MIN Glucose 156 H (70-110) MG/DL Calcium 7.8 L (8.5-10.1) mg/dL Magnesium 1.3 L (1.8-2.4) mg/dL Total Bilirubin 0.20 (0.2-1.0) mg/dL AST 10 L (15-37) U/L ALT < 6 L (12-78) U/L Alkaline Phosphatase 67 (46-116) U/L Serum Total Protein 5.7 L (6.4-8.2) gm/dL Albumin 1.9 L (3.4-5.0) g/dL Assessment/Plan (1) Acute renal failure Current Visit: Yes Status: Acute Assessment & Plan: improved with hydration, will continue to monitor with rayo in place. appears to be dehydration and post-obstructive uropathy (2) Hydronephrosis due to obstruction of bladder Current Visit: Yes Status: Acute Code(s): N13.30 - UNSPECIFIED HYDRONEPHROSIS; N32.0 - BLADDER-NECK OBSTRUCTION (3) Vomiting Current Visit: Yes Status: Acute Code(s): R11.10 - VOMITING, UNSPECIFIED (4) Gallstones Current Visit: Yes Status: Acute Code(s): K80.20 - CALCULUS OF GALLBLADDER W /O CHOLECYSTITIS W/O OBSTRUCTION (5) Dehydration Current Visit: Yes Status: Acute Code(s): E86.0 - DEHYDRATION (6) C. difficile colitis Current Visit: Yes Status: Acute Assessment & Plan: on vanc and flagyl (7) UTI (urinary tract infection) Current Visit: Yes Status: Acute Assessment & Plan: on rocephin Code(s): N39.0 - URINARY TRACT INFECTION, SITE NOT SPECIFIED
[2017-09-08] MEDS: NON-FORMULARY ITEM PO SCH ×4 (09:20→22:02)
[2017-09-08] MEDS: Flomax 0.4 MG PO SCH ×2 (09:20→22:00)
[2017-09-08] MEDS: Pletal 100 MG PO SCH ×2 (09:20→22:00)
[2017-09-08] MEDS: NORCO 5/325 MG PO PRN ×3 (09:21→22:00)
[2017-09-08] MEDS: ROCEPHIN 1 Gm-D5w 50 ml Bag** 1 G/50 ML IVPB IV SCH (09:21)
[2017-09-08] MEDS: Lopressor 50 MG PO SCH (09:21)
[2017-09-08] MEDS: PATIENT OWN MEDICATION PO SCH ×2 (11:34→17:10)
[2017-09-08] MEDS: Zofran 4 MG/2 ML VIAL IV PRN (17:04)
[2017-09-09] MEDS: FLAGYL 500 MG IVPB 500 MG/100 ML BAG IV SCH ×5 (00:08→23:21)
[2017-09-09] MEDS: NORCO 5/325 MG PO PRN ×5 (02:08→23:08)
[2017-09-09] MEDS: Sodium Chloride 0.9% W/ 20 mEq KCl/LITER 1,000 ML IV SCH ×2 (04:36→17:25)
[2017-09-09 06:33] LABS: BASOPHIL % 0.3 % (0.0-0.4); Basophil (Absolute #) 0.03 (0-0.4); Eosinophil % 6.5 % (0.00-5.0); Eosinophil (Absolute #) 0.67 (0-0.5); Granulocyte Absolute (ANC) 7.05 (1.4-6.9); Granulocytes % 68.3 % (36.0-66.0); Hematocrit 27.1 % (42-50); Hemoglobin 8.1 gm/dl (12.5-18.0); Lymphocyte (Absolute #) 1.81 (1.0-4.6); Lymphocytes % 17.5 % (24.0-44.0); Mean Cell Volume 90.9 fl (78-100); Mean Corpuscular Hgb Concent. 29.9 g/dl (32-36); Mean Platelet Volume 9.6 fl (6-9.5); Monocyte (Absolute #) 0.76 (0.0-1.3); Monocytes % 7.4 % (0.0-12.0); Platelet Count 308 K/mm3 (150-450); Red Blood Count 2.98 M/mm3 (4.1-5.6); Red Cell Distribution Width 16.3 % (11.5-14.0); White Blood Count 10.3 K/mm3 (4.0-10.5)
[2017-09-09 06:40] LABS: Mean Corpuscular Hemoglobin 27.1 pg (26-32)
[2017-09-09 07:04] LABS: ANION GAP 12.4 MEQ/L (5-15); Calcium 7.4 mg/dL (8.5-10.1); Carbon Dioxide 19.2 mEq/L (21-32); Creatinine 1 1.44 mg/dl (0.55-1.30); Potassium 4.5 mEq/L (3.5-5.1)
[2017-09-09] MEDS: Flomax 0.4 MG PO SCH ×2 (07:52→22:52)
[2017-09-09] MEDS: Pletal 100 MG PO SCH ×2 (07:52→22:52)
[2017-09-09] MEDS: Lopressor 50 MG PO SCH (07:53)
[2017-09-09] MEDS: PATIENT OWN MEDICATION PO SCH ×4 (07:53→17:07)
[2017-09-09] MEDS: Zofran 4 MG/2 ML VIAL IV PRN (07:54)
--- NOTE | 2017-09-09 08:07 | PCM.NOTE ---
Date and Time: 09/09/17 0804 Subjective Assessment: patient feeling better today, able to keep down some food and diarrhea is improved now that Creon has been brought in an resumed. strength is improved. Objective Exam General Appearance: no apparent distress, alert Skin Exam: normal color, warm, dry Respiratory Exam: normal breath sounds, lungs clear, No respiratory distress Cardiovascular Exam: regular rate/rhythm, normal heart sounds Gastrointestinal/Abdomen Exam: soft, No tenderness, No mass Extremity Exam: normal inspection, normal range of motion OBJECTIVE DATA Vital Signs: Vital Signs - 24 hr Temp Pulse Resp BP Pulse Ox 09/09/17 07:00 98 F 66 18 114/58 96 09/09/17 04:00 98.0 F 73 20 112/52 99 09/08/17 23:30 97.9 F 74 17 114/56 98 09/08/17 19:25 98.0 F 71 16 110/53 99 09/08/17 16:06 97.5 F 68 18 110/57 92 L 09/08/17 12:11 97.6 F 70 20 126/58 94 L 09/08/17 10:48 94 L Oxygen-Last 24 hours O2 Percentage 2 Liters = 28% O2 Percentage 2 Liters = 28% O2 Percentage 2 Liters = 28% O2 Percentage 2 Liters = 28% O2 Percentage 2 Liters = 28% Pain Assessment - Last Documented Pain Intensity 8 Pain Scale Used 0-10 Pain Scale Intake and Output: Intake & Output 09/06/17 09/07/17 09/08/17 09/09/17 11:59 11:59 11:59 11:59 Intake Total 480 5211 1807 9905 Output Total 1054 0497 2249 Balance 480 7441 -626 -643 Weight 66.1 kg 66.4 kg 66.2 kg 67.6 kg Lab Results: Accuchecks Date 09/08/17 Date 09/08/17 Date 09/08/17 Time 22:00 Time 16:30 Time 11:30 Accucheck Value: 202 Accucheck Value: 215 Accucheck Value: 143 Lab Results-Last 24 Hours 09/09/17 09/09/17 Range/Units 05:53 05:53 WBC 10.3 (4.0-10.5) K/mm3 RBC 2.98 L (4.1-5.6) M/mm3 Hgb 8.1 L (12.5-18.0) gm/dl Hct 27.1 L (42-50) % MCV 90.9 (78-100) fl MCH 27.1 (26-32) pg MCHC 29.9 L (32-36) g/dl RDW 16.3 H (11.5-14.0) % Plt Count 308 (150-450) K/mm3 MPV 9.6 H (6-9.5) fl Gran % 68.3 H (36.0-66.0) % Lymphocytes % 17.5 L (24.0-44.0) % Monocytes % 7.4 (0.0-12.0) % Eosinophils % 6.5 H (0.00-5.0) % Basophils % 0.3 (0.0-0.4) % Basophils # 0.03 (0-0.4) Sodium 143 (136-145) mEq/L Potassium 4.5 (3.5-5.1) mEq/L Chloride 116 H (98-107) mEq/L Carbon Dioxide 19.2 L (21-32) mEq/L Anion Gap 12.4 (5-15) MEQ/L BUN 12 (9-20) mg/dL Creatinine 1.44 H (0.55-1.30) mg/dl Estimated GFR 50 ML/MIN Glucose 163 H (70-110) MG/DL Calcium 7.4 L (8.5-10.1) mg/dL Assessment/Plan (1) Acute renal failure Current Visit: Yes Status: Acute Assessment & Plan: improved at this time (2) Hydronephrosis due to obstruction of bladder Current Visit: Yes Status: Acute Assessment & Plan: will need f/u with Dr Renee for likely renal stenting Code(s): N13.30 - UNSPECIFIED HYDRONEPHROSIS; N32.0 - BLADDER-NECK OBSTRUCTION (3) Vomiting Current Visit: Yes Status: Acute Code(s): R11.10 - VOMITING, UNSPECIFIED (4) Gallstones Current Visit: Yes Status: Acute Code(s): K80.20 - CALCULUS OF GALLBLADDER W /O CHOLECYSTITIS W/O OBSTRUCTION (5) Dehydration Current Visit: Yes Status: Acute Code(s): E86.0 - DEHYDRATION (6) C. difficile colitis Current Visit: Yes Status: Acute Assessment & Plan: on po vanc and IV flagyl, will send home on po vanc only. had some problems with flagyl recently and seems to be under control at this time (7) UTI (urinary tract infection) Current Visit: Yes Status: Acute Assessment & Plan: on IV rocephin, hopefully will be adequately treated with rocephin when discharged and won't need further tx due to c diff Code(s): N39.0 - URINARY TRACT INFECTION, SITE NOT SPECIFIED
--- NOTE | 2017-09-09 09:10 | CONS ---
REASON FOR CONSULT: Cholelithiasis. HISTORY: An 82 year-old gentleman incidentally has cholelithiasis. I was consulted because he has substantial amount of nausea. He is seen and examined at the bedside. He is elderly. He is fairly frail. He had prostate with radiation some time ago. He now has a progressive obstructive uropathy with elevated BUN and creatinine. Some flank discomfort, bilateral hydronephrosis. He was seen clinically at the bedside. He has no palpable tenderness. No palpable fullness over the gallbladder and right subcostal area. His CT scan was personally reviewed. There was no gallbladder wall thickening. There was a dependent stone that was not impacted. IMPRESSION: It certainly does not seem like his gallbladder is symptomatic. He is fairly high risk to consider any incidental correction or removal of a problem or process at this time. An ultrasound of his renal cyst and also gallbladder has also been ordered for tomorrow. I do not think his symptoms are attributable to his gallbladder and I doubt that the ultrasound will show anything requiring intervention. If there was a question a HIDA could be performed this is probably not necessary.
[2017-09-09] MEDS: MAALOX ES 30 ML UNIT DOSE PO PRN (10:39)
[2017-09-09] MEDS: NON-FORMULARY ITEM PO SCH ×4 (10:40→22:53)
[2017-09-09] MEDS: ROCEPHIN 1 Gm-D5w 50 ml Bag** 1 G/50 ML IVPB IV SCH (10:40)
[2017-09-09] MEDS: Phenergan 25 MG INJ IV PRN ×2 (11:26→17:26)
[2017-09-09] MEDS: NovoLOG Insulin SQ PRN ×2 (18:13→22:54)
[2017-09-10] MEDS: FLAGYL 500 MG IVPB 500 MG/100 ML BAG IV SCH ×4 (05:15→23:42)
[2017-09-10] MEDS: NORCO 5/325 MG PO PRN ×3 (05:16→19:22)
[2017-09-10] MEDS: Nitrostat 0.4 MG Tablet SL PRN ×2 (05:34→21:41)
[2017-09-10] MEDS: Sodium Chloride 0.9% W/ 20 mEq KCl/LITER 1,000 ML IV SCH ×3 (05:38→19:23)
[2017-09-10] MEDS: PATIENT OWN MEDICATION PO SCH ×3 (07:44→16:43)
[2017-09-10] MEDS: Zofran 4 MG/2 ML VIAL IV PRN ×2 (07:51→11:49)
[2017-09-10] MEDS: Pletal 100 MG PO SCH ×2 (08:49→21:22)
[2017-09-10] MEDS: ROCEPHIN 1 Gm-D5w 50 ml Bag** 1 G/50 ML IVPB IV SCH (08:49)
[2017-09-10] MEDS: Flomax 0.4 MG PO SCH ×2 (08:49→21:25)
[2017-09-10] MEDS: NON-FORMULARY ITEM PO SCH ×4 (08:49→21:25)
[2017-09-10] MEDS: Lopressor 50 MG PO SCH (08:49)
--- NOTE | 2017-09-10 08:54 | PCM.NOTE ---
Date and Time: 09/10/17851 Subjective Assessment: patient had some chest pain this morning, has resolved with nitro. was complaining of nausea yesterday, had some phenergan yesterday and was fairly confused with it and now seems more weak. Objective Exam General Appearance: no apparent distress, alert Skin Exam: normal color, warm, dry Respiratory Exam: normal breath sounds, lungs clear, No respiratory distress Cardiovascular Exam: regular rate/rhythm, normal heart sounds Gastrointestinal/Abdomen Exam: soft, No tenderness, No mass Extremity Exam: normal inspection, normal range of motion OBJECTIVE DATA Vital Signs: Vital Signs - 24 hr Temp Pulse Resp BP BP Pulse Ox 09/10/17 07:29 97.6 F 116 H 20 130/62 94 L 09/10/17 07:21 96 09/10/17 05:34 122 H 162/78 09/10/17 04:00 97.4 F 94 H 18 135/61 97 09/10/17 00:00 97.7 F 88 24 165/69 93 L 09/09/17 20:00 97.9 F 77 18 123/72 94 L 09/09/17 19:13 94 L 09/09/17 16:35 97.8 F 68 18 127/67 96 09/09/17 12:16 97.6 F 66 18 114/58 95 09/09/17 10:12 75 18 96 Oxygen-Last 24 hours O2 Percentage 2 Liters = 28% O2 Percentage 2 Liters = 28% O2 Percentage 2 Liters = 28% Pain Assessment - Last Documented Pain Intensity 0 Pain Scale Used 0-10 Pain Scale Intake and Output: Intake & Output 09/07/17 09/08/17 09/09/17 09/10/17 11:59 11:59 11:59 11:59 Intake Total 3894 8171 1821 1945 Output Total 1825 4585 7664 4578 Balance 9410 -304 -129 -607 Weight 66.4 kg 66.2 kg 67.6 kg 70.5 kg Lab Results: Accuchecks Date 09/09/17 Date 09/09/17 Date 09/09/17 Time 22:00 Time 16:30 Time 11:31 Accucheck Value: 119 Accucheck Value: 184 Accucheck Value: 191 Accucheck Value: 172 Lab Results-Last 24 Hours 09/10/17 Range/Units 05:30 Troponin I < 0.017 (0.000-0.056) ng/ml Assessment/Plan (1) Acute renal failure Current Visit: Yes Status: Acute Assessment & Plan: improved at this time, will cut fluids to avoid volume overload (2) Hydronephrosis due to obstruction of bladder Current Visit: Yes Status: Acute Code(s): N13.30 - UNSPECIFIED HYDRONEPHROSIS; N32.0 - BLADDER-NECK OBSTRUCTION (3) Vomiting Current Visit: Yes Status: Acute Code(s): R11.10 - VOMITING, UNSPECIFIED (4) Gallstones Current Visit: Yes Status: Acute Code(s): K80.20 - CALCULUS OF GALLBLADDER W /O CHOLECYSTITIS W/O OBSTRUCTION (5) Dehydration Current Visit: Yes Status: Acute Code(s): E86.0 - DEHYDRATION (6) C. difficile colitis Current Visit: Yes Status: Acute (7) UTI (urinary tract infection) Current Visit: Yes Status: Acute Code(s): N39.0 - URINARY TRACT INFECTION, SITE NOT SPECIFIED
[2017-09-10] MEDS: NovoLOG Insulin SQ PRN ×3 (11:46→22:25)
[2017-09-10] MEDS: Phenergan 25 MG INJ IV PRN (16:55)
[2017-09-10] MEDS: MAALOX ES 30 ML UNIT DOSE PO PRN (19:34)
[2017-09-10] MEDS ORDERED: Lopressor 25MG Tab PO ONE (23:25)
[2017-09-11 04:58] LABS: ALBUMIN 2.1 g/dL (3.4-5.0); ANION GAP 14.5 MEQ/L (5-15); BILIRUBIN,TOTAL 0.2 mg/dL (0.2-1.0); Calcium 8.2 mg/dL (8.5-10.1); Carbon Dioxide 20.4 mEq/L (21-32); Creatinine 1 1.42 mg/dl (0.55-1.30); Total Protein 6.4 gm/dL (6.4-8.2)
[2017-09-11 05:01] LABS: BASOPHIL % 0.2 % (0.0-0.4); Basophil (Absolute #) 0.02 (0-0.4); Eosinophil % 4.4 % (0.00-5.0); Eosinophil (Absolute #) 0.53 (0-0.5); Granulocyte Absolute (ANC) 8.94 (1.4-6.9); Granulocytes % 73.3 % (36.0-66.0); Hematocrit 31.3 % (42-50); Hemoglobin 9.5 gm/dl (12.5-18.0); Lymphocyte (Absolute #) 1.88 (1.0-4.6); Lymphocytes % 15.4 % (24.0-44.0); Mean Cell Volume 90.2 fl (78-100); Mean Corpuscular Hgb Concent. 30.4 g/dl (32-36); Mean Platelet Volume 9.4 fl (6-9.5); Monocyte (Absolute #) 0.81 (0.0-1.3); Monocytes % 6.7 % (0.0-12.0); Platelet Count 371 K/mm3 (150-450); Red Blood Count 3.47 M/mm3 (4.1-5.6); Red Cell Distribution Width 16.7 % (11.5-14.0); White Blood Count 12.2 K/mm3 (4.0-10.5)
[2017-09-11 05:03] LABS: Mean Corpuscular Hemoglobin 27.3 pg (26-32)
[2017-09-11] MEDS: FLAGYL 500 MG IVPB 500 MG/100 ML BAG IV SCH ×4 (05:17→23:02)
[2017-09-11] MEDS: MAALOX ES 30 ML UNIT DOSE PO PRN (06:33)
[2017-09-11] MEDS: PATIENT OWN MEDICATION PO SCH ×3 (07:48→16:49)
[2017-09-11] MEDS: Zofran 4 MG/2 ML VIAL IV PRN (07:51)
--- NOTE | 2017-09-11 08:47 | PCM.NOTE ---
Date and Time: 09/11/17 0844 Subjective Assessment: patient had some chest pain last night, had an elevated troponin. denies any chest pain this morning but does appear short of breath Objective Exam General Appearance: no apparent distress, alert Respiratory Exam: crackles/rales Cardiovascular Exam: tachycardia Gastrointestinal/Abdomen Exam: soft, No tenderness, No mass Extremity Exam: normal inspection, normal range of motion OBJECTIVE DATA Vital Signs: Vital Signs - 24 hr Temp Pulse Resp BP BP Pulse Ox 09/11/17 07:46 97.6 F 121 H 20 127/64 94 L 09/11/17 04:00 98.4 F 112 H 23 130/68 95 09/11/17 00:00 98.0 F 96 H 18 120/52 96 09/10/17 22:45 94 H 22 98 09/10/17 21:41 98 H 135/79 09/10/17 20:00 97.2 F 93 H 24 141/67 98 09/10/17 15:46 98.6 F 74 13 110/58 94 L 09/10/17 11:14 98.6 F 81 16 126/62 94 L Oxygen-Last 24 hours O2 Percentage 2 Liters = 28% O2 Percentage 2 Liters = 28% O2 Percentage 2 Liters = 28% O2 Percentage 2 Liters = 28% O2 Percentage 2 Liters = 28% O2 Percentage 2 Liters = 28% Pain Assessment - Last Documented Pain Intensity 0 Pain Scale Used 0-10 Pain Scale Intake and Output: Intake & Output 09/08/17 09/09/17 09/10/17 09/11/17 11:59 11:59 11:59 11:59 Intake Total 2820 5327 5663 4385 Output Total 2358 1782 3961 1575 Balance -304 -129 -605 -1564 Weight 66.2 kg 67.6 kg 70.5 kg 70.6 kg Lab Results: Accuchecks Date 09/10/17 Time 22:10 Accucheck Value: 230 Accucheck Value: 184 Accucheck Value: 200 Lab Results-Last 24 Hours 09/10/17 09/11/17 09/11/17 Range/Units 22:00 04:00 04:00 WBC 12.2 H (4.0-10.5) K/mm3 RBC 3.47 L (4.1-5.6) M/mm3 Hgb 9.5 L (12.5-18.0) gm/dl Hct 31.3 L (42-50) % MCV 90.2 (78-100) fl MCH 27.3 (26-32) pg MCHC 30.4 L (32-36) g/dl RDW 16.7 H (11.5-14.0) % Plt Count 371 (150-450) K/mm3 MPV 9.4 (6-9.5) fl Gran % 73.3 H (36.0-66.0) % Lymphocytes % 15.4 L (24.0-44.0) % Monocytes % 6.7 (0.0-12.0) % Eosinophils % 4.4 (0.00-5.0) % Basophils % 0.2 (0.0-0.4) % Basophils # 0.02 (0-0.4) Sodium 144 (136-145) mEq/L Potassium 4.0 (3.5-5.1) mEq/L Chloride 113 H (98-107) mEq/L Carbon Dioxide 20.4 L (21-32) mEq/L Anion Gap 14.5 (5-15) MEQ/L BUN 6 L (9-20) mg/dL Creatinine 1.42 H (0.55-1.30) mg/dl Estimated GFR 51 ML/MIN Glucose 172 H (70-110) MG/DL Calcium 8.2 L (8.5-10.1) mg/dL Magnesium 1.1 L (1.8-2.4) mg/dL Total Bilirubin 0.20 (0.2-1.0) mg/dL AST 11 L (15-37) U/L ALT 10 L (12-78) U/L Alkaline Phosphatase 81 (46-116) U/L Troponin I 0.607 H* (0.000-0.056) ng/ml NT-Pro-B Natriuret Pep 31671 H (0-450) pg/ml Serum Total Protein 6.4 (6.4-8.2) gm/dL Albumin 2.1 L (3.4-5.0) g/dL 09/11/17 Range/Units 04:00 WBC (4.0-10.5) K/mm3 RBC (4.1-5.6) M/mm3 Hgb (12.5-18.0) gm/dl Hct (42-50) % MCV (78-100) fl MCH (26-32) pg MCHC (32-36) g/dl RDW (11.5-14.0) % Plt Count (150-450) K/mm3 MPV (6-9.5) fl Gran % (36.0-66.0) % Lymphocytes % (24.0-44.0) % Monocytes % (0.0-12.0) % Eosinophils % (0.00-5.0) % Basophils % (0.0-0.4) % Basophils # (0-0.4) Sodium (136-145) mEq/L Potassium (3.5-5.1) mEq/L Chloride (98-107) mEq/L Carbon Dioxide (21-32) mEq/L Anion Gap (5-15) MEQ/L BUN (9-20) mg/dL Creatinine (0.55-1.30) mg/dl Estimated GFR ML/MIN Glucose (70-110) MG/DL Calcium (8.5-10.1) mg/dL Magnesium (1.8-2.4) mg/dL Total Bilirubin (0.2-1.0) mg/dL AST (15-37) U/L ALT (12-78) U/L Alkaline Phosphatase (46-116) U/L Troponin I 0.677 H* (0.000-0.056) ng/ml NT-Pro-B Natriuret Pep (0-450) pg/ml Serum Total Protein (6.4-8.2) gm/dL Albumin (3.4-5.0) g/dL Radiology Exams: Radiology Procedures Category Date Time Status CHEST 1 VIEW (PORTABLE) Urgent Exams 09/11/17 08:41 Ordered Assessment/Plan (1) Acute renal failure Current Visit: Yes Status: Acute Assessment & Plan: resolved with hydration (2) Hydronephrosis due to obstruction of bladder Current Visit: Yes Status: Acute Assessment & Plan: will need intervention with Dr Renee Code(s): N13.30 - UNSPECIFIED HYDRONEPHROSIS; N32.0 - BLADDER-NECK OBSTRUCTION (3) C. difficile colitis Current Visit: Yes Status: Acute Assessment & Plan: continue vanc and flagyl, still having diarrhea (4) UTI (urinary tract infection) Current Visit: Yes Status: Acute Assessment & Plan: will d/c rocephin, has received adequate treatment at this time Code(s): N39.0 - URINARY TRACT INFECTION, SITE NOT SPECIFIED (5) CHF (congestive heart failure) Current Visit: Yes Status: Acute Assessment & Plan: will get chest xray but appears to have chf on exam and BNP markedly elevated. required significant hydration to correct acute renal failure when admitted. Code(s): I50.9 - HEART FAILURE, UNSPECIFIED (6) Elevated troponin Current Visit: Yes Status: Acute Assessment & Plan: likely related to chf but having chest pain/angina symptoms. Dr Richardson has been consulted Code(s): R74.8 - ABNORMAL LEVELS OF OTHER SERUM ENZYMES
[2017-09-11] MEDS: Lasix 40 MG/4 ML IV SCH ×2 (09:21→22:47)
[2017-09-11] MEDS: Pletal 100 MG PO SCH ×2 (09:21→22:47)
[2017-09-11] MEDS: NON-FORMULARY ITEM PO SCH ×4 (09:21→22:47)
[2017-09-11] MEDS: Lopressor 50 MG PO SCH ×2 (09:21→22:47)
[2017-09-11] MEDS: Flomax 0.4 MG PO SCH ×2 (09:21→22:47)
--- NOTE | 2017-09-11 09:29 | XRAY ---
Indication: Cough and short of breath. Comparison: July 23, 2017. Portable chest unchanged again hyperinflated and clear. Heart is not enlarged demonstrating CABG surgery. No new/acute findings.
[2017-09-11] MEDS: NovoLOG Insulin SQ PRN ×3 (11:25→22:46)
[2017-09-11] MEDS: Phenergan 25 MG INJ IV PRN ×2 (11:50→16:48)
--- NOTE | 2017-09-11 13:31 | CONS ---
CONSULT DATE: 09/11/2017 BRIEF HISTORY: This is an 82 year-old male with known history of coronary artery disease status post previous coronary artery bypass graft surgery was seen because of chest pains. The patient was primarily admitted because of urinary tract infection secondary to prostate disorder. He has a diagnosis of prostate cancer. He has been getting IV antibiotics and last night he had a couple episodes of chest pains. The troponin was mildly elevated. At the time this evaluation the patient was chest pain free and there has been no further recurrences. The patient is known to have coronary artery disease and has undergone triple vessel coronary artery bypass surgery in 1997. He had cardiac catheterization done in 2013 and showed all the grafts to be patent. He has done reasonably well. CARDIAC RISK FACTORS: Positive for diabetes. Positive for hypertension. He has hyperlipidemia. He still smokes. MEDICATIONS: Xanax, Casodex, Pletal, insulin, Creon, metoprolol, omeprazole, Zofran, Simvastatin, Flomax, Losartan hydrochlorothiazide. PAST SURGICAL HISTORY: Includes coronary artery bypass surgery. REVIEW OF SYSTEMS: LEAD CAREGIVER: No history of stroke or seizures. RESPIRATORY: He has chronic obstructive lung disease. He continues to smoke. GI: No history of peptic ulcer or colon disorder. : He has a history of prostate cancer for which he underwent radiation therapy. MUSCULOSKELETAL: Occasional joint pains. SKIN: No active dermatological problems. HEMATOLOGY: No blood dyscrasia. ENDOCRINE: No thyroid disorder. 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 He denies any significant alcohol intake. PHYSICAL EXAMINATION: Blood pressure is 130/60, heart rate 96, respiratory rate 14. GENERAL: The patient is an elderly male who is alert, oriented and not in any form of distress. He is currently chest pain free. HEENT: Unremarkable. NECK: No significant JVD. CHEST: The breath sounds are clear. CARDIAC: Heart tones are normal. There is no audible gallop. The rhythm is regular. There are occasional premature beats. ABDOMEN: Soft with normal bowel sounds. EXTREMITIES: No significant edema. Decreased distal pulses. LAB DATA AND DIAGNOSTIC TESTS: EKG shows normal sinus rhythm with changes of an old anteroseptal myocardial infarction. IMPRESSION: In essence the patient has: 1) CHEST PAINS WHICH MAY BE SOME ANGINA EPISODES: The troponin is mildly elevated, this could still be due to supply and demand mismatch as he is currently suffering from Clostridium difficile colitis. I will continue medical therapy. Will increase his beta blockers. The patient is scheduled to have a surgery on Saturday and he will be a intermediate risk for the planned surgical procedure. 2) CORONARY ARTERY BYPASS SURGERY. 3) HYPERTENSION. 4) CHRONIC OBSTRUCTIVE PULMONARY DISEASE. The patient has been counseled about the need to quit smoking. 5) DIABETES. 6) HYPERLIPIDEMIA. Continue with statins. I will follow up with you.
[2017-09-11] MEDS ORDERED: ECOTRIN 81 MG PO SCH (16:00)
[2017-09-11] MEDS: NORCO 5/325 MG PO PRN (22:47)
[2017-09-12] MEDS: FLAGYL 500 MG IVPB 500 MG/100 ML BAG IV SCH (06:15)
[2017-09-12 06:22] LABS: BASOPHIL % 0.3 % (0.0-0.4); Basophil (Absolute #) 0.03 (0-0.4); Eosinophil % 4.7 % (0.00-5.0); Granulocyte Absolute (ANC) 7.49 (1.4-6.9); Granulocytes % 71.2 % (36.0-66.0); Hematocrit 30.5 % (42-50); Hemoglobin 9.2 gm/dl (12.5-18.0); Lymphocytes % 16.1 % (24.0-44.0); Mean Cell Volume 89.7 fl (78-100); Mean Corpuscular Hgb Concent. 30.2 g/dl (32-36); Mean Platelet Volume 9.4 fl (6-9.5); Monocyte (Absolute #) 0.81 (0.0-1.3); Monocytes % 7.7 % (0.0-12.0); Platelet Count 357 K/mm3 (150-450); Red Cell Distribution Width 17.1 % (11.5-14.0); White Blood Count 10.5 K/mm3 (4.0-10.5)
[2017-09-12 06:35] LABS: ANION GAP 12.4 MEQ/L (5-15); Calcium 8.2 mg/dL (8.5-10.1); Carbon Dioxide 23.8 mEq/L (21-32); Creatinine 1 1.5 mg/dl (0.55-1.30); Potassium 4.2 mEq/L (3.5-5.1)
[2017-09-12 07:26] VITALS: BP 106/61; PULSE 86; O2SAT 95
[2017-09-12] MEDS: Phenergan 25 MG INJ IV PRN (07:43)
[2017-09-12] MEDS: PATIENT OWN MEDICATION PO SCH (07:50)
--- NOTE | 2017-09-12 07:52 | PCM.DS ---
Discharge Summary Date of Admission: 09/06/17 08:30 Admitting Physician: CARLOS ALEJANDRE Consults: Consults on Case 09/10/17 23:16 Consult Cardiology Primary Care Provider: CARLOS ALEJANDRE Allergies Allergies No Known Drug Allergies Allergy (Verified 09/05/17 09:55) Hospital Summary - Hospital Course Hospital Course: patient was admitted with dehydration, post-obstructive azotemia and c diff colitis. had elevated troponin with some mild chf, resolved with diuresis. was seen by Dr Richardson and cleared for surgery. will discharge home on po vanc, to have procedure with Dr Renee on 09/16/17 - Vitals & Intake/Output Vital Signs: Vital Signs Temperature 98.5 F 09/12/17 07:25 Pulse Rate 86 09/12/17 07:25 Respiratory Rate 20 09/12/17 07:25 Blood Pressure 106/61 09/12/17 07:25 O2 Sat by Pulse Oximetry 95 09/12/17 07:25 Oxygen-Last Documented O2 Percentage 2 Liters = 28% Intake & Output: Intake & Output 09/09/17 09/10/17 09/11/17 09/12/17 11:59 11:59 11:59 11:59 Intake Total 1821 1945 2976 600 Output Total 1950 2550 2528 6378 Balance -689 -938 -4387 -5311 Weight 67.6 kg 70.5 kg 70.6 kg 66.9 kg - Lab Result Diagrams: 09/12/17 05:35 09/12/17 05:35 Lab Results-Last 24 Hrs: Accuchecks Date 09/11/17 Time 22:00 Accucheck Value: 188 Accucheck Value: 195 Accucheck Value: 230 Lab Results-Last 24 Hours 09/12/17 09/12/17 Range/Units 05:35 05:35 WBC 10.5 (4.0-10.5) K/mm3 RBC 3.40 L (4.1-5.6) M/mm3 Hgb 9.2 L (12.5-18.0) gm/dl Hct 30.5 L (42-50) % MCV 89.7 (78-100) fl MCH 27.0 (26-32) pg MCHC 30.2 L (32-36) g/dl RDW 17.1 H (11.5-14.0) % Plt Count 357 (150-450) K/mm3 MPV 9.4 (6-9.5) fl Gran % 71.2 H (36.0-66.0) % Lymphocytes % 16.1 L (24.0-44.0) % Monocytes % 7.7 (0.0-12.0) % Eosinophils % 4.7 (0.00-5.0) % Basophils % 0.3 (0.0-0.4) % Basophils # 0.03 (0-0.4) Sodium 143 (136-145) mEq/L Potassium 4.2 (3.5-5.1) mEq/L Chloride 111 H (98-107) mEq/L Carbon Dioxide 23.8 (21-32) mEq/L Anion Gap 12.4 (5-15) MEQ/L BUN 5 L (9-20) mg/dL Creatinine 1.50 H (0.55-1.30) mg/dl Estimated GFR 48 ML/MIN Glucose 171 H (70-110) MG/DL Calcium 8.2 L (8.5-10.1) mg/dL NT-Pro-B Natriuret Pep 23448 H (0-450) pg/ml Micro Results-Entire Visit: Accuchecks Date 09/11/17 Time 22:00 Accucheck Value: 188 Accucheck Value: 195 Accucheck Value: 230 - Radiology Exams Ordered Rad Exams-Entire Visit: Radiology Procedures Category Date Time Status CHEST 1 VIEW (PORTABLE) Urgent Exams 09/11/17 08:41 Completed ECHO W/2D AND DOPPLER [US] Routine Exams 09/11/17 15:13 Taken - Procedures and Test Procedures and Tests throughout Hospitalization: Therapy Orders & Screens 09/10/17 05:36 EKG STAT Comment: chest pain Diagnosis: C-DIF COLITIS, FAILED OUTPATIENT, ACUTE RENAL 09/10/17 21:45 EKG STAT Comment: chest pain Diagnosis: C-DIF COLITIS, FAILED OUTPATIENT, ACUTE RENAL Discharge Exam General Appearance: no apparent distress, alert, thin Neurologic Exam: alert Skin Exam: normal color, warm, dry Respiratory Exam: normal breath sounds, lungs clear, No respiratory distress Cardiovascular Exam: regular rate/rhythm, normal heart sounds Gastrointestinal/Abdomen Exam: soft, No tenderness, No mass Extremity Exam: normal inspection, normal range of motion Final Diagnosis/Problem List - Final Discharge Diagnosis/Problem (1) Acute renal failure Current Visit: Yes Status: Acute (2) Hydronephrosis due to obstruction of bladder Current Visit: Yes Status: Acute (3) C. difficile colitis Current Visit: Yes Status: Acute (4) UTI (urinary tract infection) Current Visit: Yes Status: Acute (5) CHF (congestive heart failure) Current Visit: Yes Status: Acute (6) Elevated troponin Current Visit: Yes Status: Acute - Discharge Disposition: Home, Self-Care Condition: Fair Prescriptions: New Nitroglycerin 0.4 mg Tablet [Nitrostat 0.4 MG Tablet] 0.4 mg SL Q5MIN PRN MR X 3 PRN #25 bottle PRN Reason: Chest Pain Vancomycin/0.9 % Sod Chloride [Vanco 500 mg/100 ml-0.9% NaCl] 250 mg PO QID # 15 dose Continue Tamsulosin HCl 0.4 mg [Flomax 0.4 MG] 0.4 mg PO BID Bicalutamide [Casodex] 50 mg PO DAILY Valsartan/Hydrochlorothiazide [Valsartan-Hctz 80-12.5 mg Tab] 1 each PO HS Metoprolol Tartrate 50 mg [Lopressor 50 MG] 50 mg PO DAILY Lipase/Protease/Amylase [Misty Pierson 24,000 Units Capsule] 2 each PO AC Insulin Glargine,Hum.rec.anlog [Lantus] 40 unit SQ 1730 Simvastatin [Zocor] 40 mg PO HS Alprazolam 0.25 mg [xanAX 0.25 MG] 0.25 mg PO QIDPRN PRN PRN Reason: Anxiety Omeprazole 20 MG [Prilosec 20 mg] 20 mg PO DAILY Cilostazol 100 mg [Pletal 100 MG] 50 mg PO BID Ondansetron ODT 4 MG [Zofran Odt 4 mg] 4 mg PO Q6H PRN PRN #30 tab.rapdis PRN Reason: Nausea Additional Instructions: have procedure with Dr Renee 09/16/17 as directed. continue po vanc, take zofran as needed for nausea. push plenty of fluids
[2017-09-12] MEDS: Pletal 100 MG PO SCH (09:02)
[2017-09-12] MEDS: Flomax 0.4 MG PO SCH (09:02)
[2017-09-12] MEDS: Lopressor 50 MG PO SCH (09:02)
[2017-09-12] MEDS: NON-FORMULARY ITEM PO SCH (09:03)
[2017-09-12] MEDS: Lasix 40 MG/4 ML IV SCH (09:03)
== END 2017-09-12 10:10 | disposition home or self-care (01) | DRG 683 ==
LOC: ED 09:35 → MED SURG 14:42 → OBSVTOIN 09-06 08:30
PROVIDERS: ADMIT Family Medicine; ATTEND Family Medicine
DX: K52.9 Noninfective gastroenteritis and colitis, unspecified (principal); N17.9 Acute kidney failure, unspecified; N19 Unspecified kidney failure; A04.72 Enterocolitis due to Clostridium difficile, not specified as recurrent; I25.810 Atherosclerosis of coronary artery bypass graft(s) without angina pectoris; E78.00 Pure hypercholesterolemia, unspecified; N39.0 Urinary tract infection, site not specified; J44.9 Chronic obstructive pulmonary disease, unspecified; N13.39 Other hydronephrosis; Z85.46 Personal history of malignant neoplasm of prostate; N40.0 Benign prostatic hyperplasia without lower urinary tract symptoms; N32.0 Bladder-neck obstruction; I50.9 Heart failure, unspecified; K80.20 Calculus of gallbladder without cholecystitis without obstruction; N13.9 Obstructive and reflux uropathy, unspecified; R79.89 Other specified abnormal findings of blood chemistry; I10 Essential (primary) hypertension; E78.5 Hyperlipidemia, unspecified; E11.9 Type 2 diabetes mellitus without complications; R11.10 Vomiting, unspecified; R19.7 Diarrhea, unspecified; E86.0 Dehydration; Z79.899 Other long term (current) drug therapy; Z72.0 Tobacco use
CPT/HCPCS: 36000; 36415; 51702; 71045; 74176; 76705; 76770; 80048; 80053; 81000; 82962; 83605; 83690; 83735; 83880; 84484; 85025; 87040; 87045; 87046; 87077; 87086; 87186; 87335; 87493; 93005; 93268; 93306; 94760; 96360; 96361; 96374; 99285; G0378; J0696; J1940; J2405; J2550; A9270-GY

== ENCOUNTER 2017-12-09 13:20 | Inpatient (IN) | payer MEDICARE, OTHER ==
[2017-12-09] MEDS: Sodium Chloride 0.9% 1000 ML 1,000 ML IV SCH (15:39)
[2017-12-09] MEDS ORDERED: Nitrostat 0.4 MG Tablet SL PRN (15:46)
--- NOTE | 2017-12-09 16:07 | PCM.HP ---
History of Present Illness - Chief Complaint Chief Complaint: acute /chronic renal failure,dehydration,uti History of Present Illness: is a 82 year old male with postobstructive uropathy and chronic renal insufficiency, recently had TURP by Dr Renee, he has had a long and steady decline over the preceeding several months. For the last few days he has been confused and disoriented to time intermittently. Forgot to put on his pants one day, states his appetite has been good. He had some diarrhea yesterday but none today. - Review of Systems Constitutional: No Fever, No Chills Respiratory: No Cough, No Short Of Breath Cardiac: No Chest Pain, No Edema, No Syncope Abdominal/Gastrointestinal: Diarrhea, No Abdominal Pain, No Nausea, No Vomiting Genitourinary Symptoms: Frequency, No Dysuria Skin: No Rash All Other Systems: Reviewed and Negative Medications & Allergies Home Medications: Home Medication List Bicalutamide [Casodex] 50 mg PO DAILY 08/18/16 [History Confirmed 12/09/17] Insulin Glargine,Hum.rec.anlog [Lantus] 10 unit SQ DAILY 08/18/16 [History Confirmed 12/09/17] Lipase/Protease/Amylase [Misty Pierson 24,000 Units Capsule] 24,000 each PO AC [History Confirmed 12/09/17] Metoprolol Tartrate 50 mg [Lopressor 50 MG] 25 mg PO BID 08/18/16 [ History Confirmed 12/09/17] Simvastatin [Zocor] 40 mg PO HS 08/18/16 [History Confirmed 12/09/17] Tamsulosin HCl 0.4 mg [Flomax 0.4 MG] 0.8 mg PO BID 08/18/16 [History Confirmed 12/09/17] Alprazolam 0.25 mg [xanAX 0.25 MG] 0.25 mg PO Q6HPRN PRN 09/05/17 [ History Confirmed 12/09/17] Nitroglycerin 0.4 mg Tablet [Nitrostat 0.4 MG Tablet] 0.4 mg SL Q5MIN PRN MR X 3 PRN #25 bottle 09/12/17 [Rx Confirmed 12/09/17] Aspirin EC 81 mg [Ecotrin 81 mg] 162 mg PO DAILY 11/01/17 [History Confirmed 12/09/17] Darbepoetin Mika 60 Mcg [Aranesp 60 Mcg Syringe] 60 mcg IJ UD 11/01/17 [ History Confirmed 12/09/17] Glipizide [Glucotrol] 5 mg PO 1700 11/01/17 [History Confirmed 12/09/17] Hydrocodone/Acetaminophen [Hydrocodon-Acetaminophen 5-325] 1 tab PO Q4H PRN PRN 11/01/17 [History Confirmed 12/09/17] Megestrol Acetate 40 mg/ml [Megace 40 MG/ML] 20 ml PO DAILY 11/01/17 [ History Confirmed 12/09/17] Trimethoprim 100 mg PO DAILY 11/01/17 [History Confirmed 12/09/17] Ondansetron ODT 4 MG [Zofran Odt 4 mg] 4 mg PO Q8H PRN PRN 12/09/17 [ History Confirmed 12/09/17] glipiZIDE [Glipizide] 2.5 mg PO LUNCH 12/09/17 [History Confirmed 12/09/17] Allergies/Adverse Reactions: Allergies Allergy/AdvReac Type Severity Reaction Status Date / Time No Known Drug Allergies Allergy Verified 11/29/17 09:36 - Past Medical History Past Medical History: Yes Neurological History: No Pertinent History ENT History: Cataracts Cardiac History: Arrhythmia, Congestive Heart Failure, Coronary Artery Disease, High Cholesterol, Hypertension Respiratory History: COPD Endocrine Medical History: Diabetes Type II Musculoskelatal History: No Pertinent History GI Medical History: No Pertinent History History: No Pertinent History Pyscho-Social History: No Pertinent History Male Reproductive Disorders: Prostate Cancer Comment: bladder cancer - Past Surgical History Past Surgical History: Yes Neuro Surgical History: No Pertinent History Cardiac History: CABG Respiratory Surgery: No Pertinent History GI Surgical History: No Pertinent History Genitourinary Surgical Hx: No Pertinent History Musculskeletal Surgical Hx: No Pertinent History Male Surgical History: Prostate Surgery - Social History Smoking Status: Former smoker How long have you smoked: 70 Exposure to second hand smoke: No Alcohol: None Drug Use: none - Physical Exam Vital Signs: Vital Signs - 24 hr Temp Pulse Resp BP Pulse Ox 12/09/17 14:41 99.6 F 82 20 133/63 98 General Appearance: no apparent distress, thin Neurologic Exam: alert Eye Exam: PERRL/EOMI, eyes nml inspection Respiratory Exam: normal breath sounds, lungs clear, No respiratory distress Cardiovascular Exam: regular rate/rhythm, normal heart sounds, normal peripheral pulses Gastrointestinal/Abdomen Exam: soft, normal bowel sounds, No tenderness, No mass Skin Exam: normal color, warm, dry, No rash Assessment/Plan (1) Acute renal failure Current Visit: No Status: Acute Assessment & Plan: likely due to dehydration, will follow with gentle hydration (2) Hyperkalemia Current Visit: Yes Status: Acute Assessment & Plan: will hydrate and observe at this time Code(s): E87.5 - HYPERKALEMIA (3) Dehydration Current Visit: No Status: Acute Code(s): E86.0 - DEHYDRATION (4) UTI (urinary tract infection) Current Visit: No Status: Acute Assessment & Plan: on rocephin, urine culture pending. Code(s): N39.0 - URINARY TRACT INFECTION, SITE NOT SPECIFIED
[2017-12-09] MEDS ORDERED: Zofran 4 MG/2 ML VIAL IV PRN (16:11)
[2017-12-09] MEDS ORDERED: TYLENOL 325 MG PO PRN (16:12)
[2017-12-09] MEDS ORDERED: LIPASE PO SCH (16:30)
[2017-12-09] MEDS ORDERED: [UNRECOGNIZED DRUG - OTHER] PO SCH (16:30)
[2017-12-09] MEDS ORDERED: AMYLASE PO SCH (16:30)
[2017-12-09] MEDS ORDERED: PROTEASE PO SCH (16:30)
[2017-12-09] MEDS: PATIENT OWN MEDICATION PO SCH (16:39)
[2017-12-09] MEDS: ROCEPHIN 1 Gm-D5w 50 ml Bag** 1 G/50 ML IVPB IV SCH (16:39)
[2017-12-09] MEDS: NovoLOG Insulin SQ PRN (16:42)
[2017-12-09] MEDS: Flomax 0.4 MG PO SCH (22:04)
[2017-12-09] MEDS: Lopressor 25MG Tab PO SCH (22:04)
[2017-12-10] MEDS: Sodium Chloride 0.9% 1000 ML 1,000 ML IV SCH ×3 (01:32→21:40)
[2017-12-10 05:52] LABS: Granulocyte Absolute (ANC) 11.73 (1.4-6.9); Hematocrit 27.7 % (42-50); Hemoglobin 8.3 gm/dl (12.5-18.0); Mean Platelet Volume 9.4 fl (6-9.5); Platelet Count 490 K/mm3 (150-450); Red Blood Count 2.98 M/mm3 (4.1-5.6); Red Cell Distribution Width 16.4 % (11.5-14.0); White Blood Count 14.8 K/mm3 (4.0-10.5)
[2017-12-10 06:02] LABS: ANION GAP 16.9 MEQ/L (5-15); Creatinine 1 1.71 mg/dL (0.66-1.25); Potassium 5.7 mmol/L (3.5-5.1)
[2017-12-10 06:10] LABS: Mean Corpuscular Hemoglobin 27.8 pg (26-32)
[2017-12-10] MEDS: PATIENT OWN MEDICATION PO SCH ×3 (07:35→16:52)
[2017-12-10 07:46] LABS: Basophil 1 % (0.0-1.0); Eosinophil 4 % (0.00-3.0); Lymphocytes 9 % (24-44); Monocyte 1 % (0.0-12.0); Neutrophils 85 % (36.-66.); Platelet Estimate NORMAL (NORMAL); Total Cells Counted 100; Toxic Granulation 1+
--- NOTE | 2017-12-10 09:49 | PCM.NOTE ---
Date and Time: 12/10/17 0947 Subjective Assessment: patient had some diarrhea last night. no other complaints today, tolerating po intake. no vomiting Objective Exam General Appearance: no apparent distress, thin Neurologic Exam: alert, oriented x 3 Skin Exam: normal color, warm, dry Respiratory Exam: normal breath sounds, lungs clear, No respiratory distress Cardiovascular Exam: regular rate/rhythm, normal heart sounds Gastrointestinal/Abdomen Exam: soft, No tenderness, No mass Extremity Exam: normal inspection, normal range of motion OBJECTIVE DATA Vital Signs: Vital Signs - 24 hr Temp Pulse Resp BP Pulse Ox 12/10/17 07:45 99.0 F 92 H 18 180/65 97 12/10/17 04:00 98.8 F 86 24 142/66 100 12/10/17 00:00 99.8 F 84 18 143/65 96 12/09/17 20:00 99.2 F 93 H 18 151/67 97 12/09/17 16:55 98.2 F 83 18 126/62 99 12/09/17 14:41 99.6 F 82 20 133/63 98 Pain Assessment - Last Documented Pain Intensity 0 Pain Scale Used FLACC Intake and Output: Intake & Output 12/07/17 12/08/17 12/09/17 12/10/17 11:59 11:59 11:59 11:59 Intake Total 800 Output Total 350 Balance 450 Weight 62.2 kg Lab Results: Accuchecks Date 12/10/17 Date 12/09/17 Date 12/09/17 Time 07:30 Time 21:30 Time 16:30 Accucheck Value: 115 Accucheck Value: 139 Accucheck Value: 454 Lab Results-Last 24 Hours 12/09/17 12/10/17 12/10/17 Range/Units 18:16 05:10 05:10 WBC 14.8 H (4.0-10.5) K/mm3 RBC 2.98 L (4.1-5.6) M/mm3 Hgb 8.3 L (12.5-18.0) gm/dl Hct 27.7 L (42-50) % MCV 93.0 (78-100) fl MCH 27.8 (26-32) pg MCHC 30.0 L (32-36) g/dl RDW 16.4 H (11.5-14.0) % Plt Count 490 H (150-450) K/mm3 MPV 9.4 (6-9.5) fl Absolute Granulocytes 11.73 H (1.4-6.9) Segmented Neutrophils 85 H (36.-66.) % Lymphocytes (Manual) 9 L (24-44) % Monocytes (Manual) 1 (0.0-12.0) % Eosinophils (Manual) 4 H (0.00-3.0) % Basophils (Manual) 1 (0.0-1.0) % Toxic Granulation 1+ Platelet Estimate NORMAL (NORMAL) RBC Morphology NORMAL Sodium 144 (137-145) mmol/L Potassium 5.7 H (3.5-5.1) mmol/L Chloride 118 H (98-107) mmol/L Carbon Dioxide 14 L* (22-30) mmol/L Anion Gap 16.9 H (5-15) MEQ/L BUN 50 H (9-20) mg/dL Creatinine 1.71 H (0.66-1.25) mg/dL Estimated GFR 40.8 ML/MIN Glucose 124 H (74-106) mg/dL Hemoglobin A1c 8.19 H (4.5-6.0) % Calcium 9.0 (8.4-10.2) mg/dL Assessment/Plan (1) Acute renal failure Current Visit: No Status: Acute Onset Date: ~12/10/17 Assessment & Plan: mild improvement with hydration (2) Hyperkalemia Current Visit: Yes Status: Acute Onset Date: ~12/10/17 Assessment & Plan: improved with hydration, will follow Code(s): E87.5 - HYPERKALEMIA (3) Dehydration Current Visit: No Status: Acute Onset Date: ~12/10/17 Code(s): E86.0 - DEHYDRATION (4) UTI (urinary tract infection) Current Visit: No Status: Acute Onset Date: ~12/10/17 Assessment & Plan: on rocephin, culture pending Code(s): N39.0 - URINARY TRACT INFECTION, SITE NOT SPECIFIED
[2017-12-10] MEDS ORDERED: BICALUTAMIDE 50 MG PO SCH (10:00)
[2017-12-10] MEDS ORDERED: TRIMETHOPRIM 100 MG PO SCH (10:00)
[2017-12-10] MEDS: NON-FORMULARY ITEM PO SCH (10:15)
[2017-12-10] MEDS: Lopressor 25MG Tab PO SCH ×2 (10:15→21:42)
[2017-12-10] MEDS: IMODIUM 2 MG PO PRN (10:15)
[2017-12-10] MEDS: Flomax 0.4 MG PO SCH ×2 (10:15→21:42)
[2017-12-10] MEDS: ECOTRIN 81 MG PO SCH (10:15)
[2017-12-10] MEDS: Megace 40 MG/ML PO SCH (10:16)
[2017-12-10] MEDS: CASODEX PO SCH ×2 (10:16→10:23)
[2017-12-10] MEDS: ROCEPHIN 1 Gm-D5w 50 ml Bag** 1 G/50 ML IVPB IV SCH (10:17)
[2017-12-10] MEDS: xanAX 0.25 MG PO PRN (21:42)
[2017-12-10] MEDS: NovoLOG Insulin SQ PRN (21:42)
[2017-12-10] MEDS: NORCO 5/325 MG PO PRN (23:58)
[2017-12-11 05:36] LABS: BASOPHIL % 0.3 % (0.0-0.4); Basophil (Absolute #) 0.03 (0-0.4); Eosinophil % 1.6 % (0.00-5.0); Eosinophil (Absolute #) 0.19 (0-0.5); Granulocyte Absolute (ANC) 8.74 (1.4-6.9); Granulocytes % 75.8 % (36.0-66.0); Hematocrit 24.1 % (42-50); Hemoglobin 7.3 gm/dl (12.5-18.0); Lymphocyte (Absolute #) 1.95 (1.0-4.6); Lymphocytes % 16.9 % (24.0-44.0); Mean Cell Volume 92.3 fl (78-100); Mean Corpuscular Hgb Concent. 30.3 g/dl (32-36); Mean Platelet Volume 8.5 fl (6-9.5); Monocyte (Absolute #) 0.62 (0.0-1.3); Monocytes % 5.4 % (0.0-12.0); Platelet Count 443 K/mm3 (150-450); Red Blood Count 2.61 M/mm3 (4.1-5.6); Red Cell Distribution Width 16.1 % (11.5-14.0); White Blood Count 11.5 K/mm3 (4.0-10.5)
[2017-12-11 05:43] LABS: Mean Corpuscular Hemoglobin 27.9 pg (26-32)
[2017-12-11 06:12] LABS: ANION GAP 15.2 MEQ/L (5-15); Calcium 8.7 mg/dL (8.4-10.2); Creatinine 1 1.49 mg/dL (0.66-1.25)
[2017-12-11 06:44] LABS: Potassium 6.2 mmol/L (3.5-5.1)
[2017-12-11] MEDS: Sodium Chloride 0.9% 1000 ML 1,000 ML IV SCH ×2 (08:05→19:32)
[2017-12-11] MEDS: NON-FORMULARY ITEM PO SCH ×2 (08:06→17:38)
[2017-12-11] MEDS: CASODEX PO SCH (08:06)
[2017-12-11] MEDS: Lopressor 25MG Tab PO SCH ×2 (08:07→22:33)
[2017-12-11] MEDS: Flomax 0.4 MG PO SCH ×2 (08:07→22:33)
[2017-12-11] MEDS: ECOTRIN 81 MG PO SCH (08:07)
[2017-12-11] MEDS: Megace 40 MG/ML PO SCH (08:09)
[2017-12-11] MEDS: PATIENT OWN MEDICATION PO SCH ×3 (08:11→16:25)
--- NOTE | 2017-12-11 09:07 | PCM.NOTE ---
Date and Time: 12/11/17 09 Subjective Assessment: patient reports he is feeling better today. tolerating po intake, ate a good breakfast. no pain Objective Exam General Appearance: no apparent distress, alert Skin Exam: normal color, warm, dry Respiratory Exam: normal breath sounds, lungs clear, No respiratory distress Cardiovascular Exam: regular rate/rhythm, normal heart sounds Gastrointestinal/Abdomen Exam: soft, No tenderness, No mass Extremity Exam: normal inspection, normal range of motion OBJECTIVE DATA Vital Signs: Vital Signs - 24 hr Temp Pulse Resp BP Pulse Ox 12/11/17 07:11 98.0 F 78 18 188/72 96 12/11/17 04:00 98.7 F 76 17 139/65 95 12/10/17 23:39 97.8 F 93 H 20 178/74 97 12/10/17 20:00 97.8 F 79 18 172/70 97 12/10/17 16:00 99.1 F 73 18 143/64 99 12/10/17 11:49 99.1 F 79 18 181/72 100 Pain Assessment - Last Documented Pain Intensity 0 Pain Scale Used 0-10 Pain Scale Intake and Output: Intake & Output 12/08/17 12/09/17 12/10/17 12/11/17 11:59 11:59 11:59 11:59 Intake Total 800 3382 Output Total 350 950 Balance 450 2432 Weight 62.2 kg Lab Results: Accuchecks Date 12/11/17 Date 12/10/17 Date 12/10/17 Date 12/10/17 Time 07:30 Time 22:00 Time 16:39 Time 11:30 Accucheck Value: 217 Accucheck Value: 315 Accucheck Value: 186 Accucheck Value: 190 Lab Results-Last 24 Hours 12/11/17 12/11/17 Range/Units 05:30 05:30 WBC 11.5 H (4.0-10.5) K/mm3 RBC 2.61 L (4.1-5.6) M/mm3 Hgb 7.3 L (12.5-18.0) gm/dl Hct 24.1 L (42-50) % MCV 92.3 (78-100) fl MCH 27.9 (26-32) pg MCHC 30.3 L (32-36) g/dl RDW 16.1 H (11.5-14.0) % Plt Count 443 (150-450) K/mm3 MPV 8.5 (6-9.5) fl Gran % 75.8 H (36.0-66.0) % Eos # (Auto) 0.19 (0-0.5) Absolute Lymphs (auto) 1.95 (1.0-4.6) Absolute Monos (auto) 0.62 (0.0-1.3) Lymphocytes % 16.9 L (24.0-44.0) % Monocytes % 5.4 (0.0-12.0) % Eosinophils % 1.6 (0.00-5.0) % Basophils % 0.3 (0.0-0.4) % Absolute Granulocytes 8.74 H (1.4-6.9) Basophils # 0.03 (0-0.4) Sodium 144 (137-145) mmol/L Potassium 6.2 H* (3.5-5.1) mmol/L Chloride 120 H (98-107) mmol/L Carbon Dioxide 15 L* (22-30) mmol/L Anion Gap 15.2 H (5-15) MEQ/L BUN 41 H (9-20) mg/dL Creatinine 1.49 H (0.66-1.25) mg/dL Estimated GFR 47.9 ML/MIN Glucose 234 H (74-106) mg/dL Calcium 8.7 (8.4-10.2) mg/dL Assessment/Plan (1) Acute renal failure Current Visit: No Status: Acute Onset Date: ~12/10/17 Assessment & Plan: improved with hydration, consult Dr Pelaez due to persistent hyperkalemia secondary to metabolic acidosis (2) Hyperkalemia Current Visit: Yes Status: Acute Onset Date: ~12/10/17 Assessment & Plan: appreciate renal consult input Code(s): E87.5 - HYPERKALEMIA (3) Dehydration Current Visit: No Status: Acute Onset Date: ~12/10/17 Code(s): E86.0 - DEHYDRATION (4) UTI (urinary tract infection) Current Visit: No Status: Acute Onset Date: ~12/10/17 Assessment & Plan: d/c rocephin, pseudomona and citrobacter in urine sens to cipro. will start po cipro at this time. Code(s): N39.0 - URINARY TRACT INFECTION, SITE NOT SPECIFIED (5) Metabolic acidosis Current Visit: Yes Status: Acute Assessment & Plan: non anion gap. patient has had recent diarrheal illness but not improving with hydration. will consult Dr Pelaez Code(s): E87.2 - ACIDOSIS
[2017-12-11] MEDS: Cipro 500 MG PO SCH ×2 (09:59→22:33)
[2017-12-11] MEDS: NovoLOG Insulin SQ PRN ×2 (11:35→16:25)
[2017-12-11 17:02] LABS: ANION GAP 15.3 MEQ/L (5-15); Calcium 8.5 mg/dL (8.4-10.2); Creatinine 1 1.39 mg/dL (0.66-1.25)
[2017-12-11 17:08] LABS: Potassium 6.2 mmol/L (3.5-5.1)
[2017-12-11] MEDS: SODIUM BICARBONATE IV SCH (17:31)
[2017-12-11] MEDS: [UNRECOGNIZED DRUG - OTHER] IV SCH (17:31)
[2017-12-11] MEDS ORDERED: Lantus Insulin ONE (22:31)
[2017-12-12] MEDS: NovoLOG Insulin SQ PRN ×5 (00:16→22:41)
[2017-12-12] MEDS: xanAX 0.25 MG PO PRN ×2 (00:16→22:40)
[2017-12-12 06:00] LABS: Granulocyte Absolute (ANC) 9.39 (1.4-6.9); Hematocrit 25.3 % (42-50); Hemoglobin 7.6 gm/dl (12.5-18.0); Mean Corpuscular Hemoglobin 27.9 pg (26-32); Mean Platelet Volume 8.9 fl (6-9.5); Platelet Count 438 K/mm3 (150-450); Red Blood Count 2.72 M/mm3 (4.1-5.6); Red Cell Distribution Width 16.1 % (11.5-14.0); White Blood Count 12.5 K/mm3 (4.0-10.5)
[2017-12-12 06:20] LABS: ALBUMIN 2.7 g/dL (3.5-5.0); ALKALINE PHOSPHATASE 115 U/L (38-126); ANION GAP 15.1 MEQ/L (5-15); BILIRUBIN,TOTAL < 0.10 mg/dL (0.2-1.3); BLOOD UREA NITROGEN 34 mg/dL (9-20); CHLORIDE 116 mmol/L (98-107); Calcium 8.9 mg/dL (8.4-10.2); Carbon Dioxide 18 mmol/L (22-30); Creatinine 1 1.35 mg/dL (0.66-1.25); Glucose 245 mg/dL (74-106); SGOT/AST 9 U/L (17-59); SGPT/ALT 26 U/L (0-50); SODIUM 143 mmol/L (137-145); Total Protein 5.9 g/dL (6.3-8.2)
[2017-12-12 06:21] LABS: Potassium 5.9 mmol/L (3.5-5.1)
[2017-12-12 07:22] LABS: Eosinophil 2 % (0.00-3.0); Lymphocytes 15 % (24-44); Monocyte 3 % (0.0-12.0); Neutrophils 80 % (36.-66.); Total Cells Counted 100
[2017-12-12 07:23] LABS: ANISOCYTOSIS 1+; Platelet Estimate NORMAL (NORMAL)
--- NOTE | 2017-12-12 07:55 | CONS ---
CONSULT DATE: 12/11/2017 REASON FOR CONSULT: Hyperkalemia, chronic kidney disease. HISTORY: Pool Perez is a pleasant 82 year-old male with history chronic kidney disease stage III, prostatic cancer, diabetes admitted for intermittent confusion. He was found to have urinary tract infection. He received ceftriaxone. This evening he is doing much better. He denies any nausea, vomiting, headache, chest pain, shortness of breath, swelling, rash, fever. He has chronic diarrhea whenever he forgets to take Creon and he gets diarrhea. REVIEW OF SYSTEMS: All of the twelve review of systems were negative except in history of present illness. PAST MEDICAL HISTORY: Hypertension, diabetes, dyslipidemia, coronary artery disease, peripheral vascular disease, prostate cancer, chronic obstructive pulmonary disease, cardiomyopathy with ejection fraction of 40%. PAST SURGICAL HISTORY: Coronary artery bypass graft. Percutaneous intervention of left lower extremity, transurethral resection of prostate. MEDICATIONS: Home medications were reviewed. Current medications reviewed. ALLERGIES: NKDA. FAMILY HISTORY: No one has kidney disease. SOCIAL HISTORY: No history of alcohol or use of any illicit drugs. Denies smoking. PHYSICAL EXAMINATION: VITAL SIGNS: Temperature 98.7F, pulse 76, blood pressure 139/65. GENERAL: Alert, oriented, not in distress. HEENT: Oral mucosa moist. NECK: Supple. CHEST: Clear to auscultation. HEART: S1 and S2 normal. No rub. ABDOMEN: Soft, nontender, bowel sounds present. EXTREMITIES: No edema. No clubbing. No cyanosis. 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 LAB DATA AND TESTS: Sodium 144, potassium 6.2, BUN 41, creatinine 1.49, bicarb 15, chloride 120. Anion gap 15. White blood cell 11.5, hemoglobin 7.3, PLT 443,000. ASSESSMENT AND PLAN: 1) HYPERKALEMIA MOST LIKELY SECONDARY TO TRIMETHOPRIN PLUS METABOLIC ACIDOSIS: I will discontinue Trimethoprim. Will repeat BMP this evening. Will give bicarbonate. 2) METABOLIC ACIDOSIS MOST LIKELY SECONDARY TO CHRONIC DIARRHEA: Will start sodium bicarbonate 1300 mg p.o. b.i.d. I will discontinue normal saline and start D5 with 75 mEq of bicarb at 60 ml/hour that will help hyperkalemia. 3) CHRONIC KIDNEY DISEASE STAGE III: His chronic kidney disease is most likely secondary to obstructive uropathy plus atherosclerotic vascular disease plus some component of hypertension, nephrosclerosis. Renal function seems to be at baseline. He had recently urinary tract infection due to obstructive uropathy. 4) URINARY TRACT INFECTION: Getting treated with ceftriaxone. His mentation is much better. 5) CHRONIC ANEMIA: Need follow up as an outpatient. Thank you Dr. Jeremy Fox for giving me the opportunity to participate in the care of this patient. I will follow this patient along with you.
[2017-12-12] MEDS: PATIENT OWN MEDICATION PO SCH ×3 (08:08→16:52)
--- NOTE | 2017-12-12 08:34 | PCM.NOTE ---
Date and Time: 12/12/17 0833 Subjective Assessment: patient feels well, no problems or concerns. tolerating po, mentation seems improved. Objective Exam General Appearance: no apparent distress, alert Skin Exam: normal color, warm, dry Respiratory Exam: normal breath sounds, lungs clear, No respiratory distress Cardiovascular Exam: regular rate/rhythm, normal heart sounds Gastrointestinal/Abdomen Exam: soft, No tenderness, No mass Extremity Exam: normal inspection, normal range of motion OBJECTIVE DATA Vital Signs: Vital Signs - 24 hr Temp Pulse Resp BP Pulse Ox 12/12/17 07:32 97.8 F 81 18 179/75 96 12/12/17 04:00 98.0 F 83 17 139/63 96 12/12/17 00:00 98.6 F 93 H 17 168/70 97 12/11/17 19:51 98.1 F 88 17 170/74 97 12/11/17 15:46 98.6 F 83 18 141/65 97 12/11/17 11:25 97.6 F 73 20 172/60 98 Pain Assessment - Last Documented Pain Intensity 0 Pain Scale Used 0-10 Pain Scale Intake and Output: Intake & Output 12/09/17 12/10/17 12/11/17 12/12/17 11:59 11:59 11:59 11:59 Intake Total 800 3382 4266 Output Total 385 605 4608 Balance 450 2432 2786 Weight 62.2 kg Lab Results: Accuchecks Date 12/11/17 Date 12/10/17 Date 12/11/17 Date 12/11/17 Time 23:30 Time 22:00 Time 16:30 Time 11:30 Accucheck Value: 239 Accucheck Value: 464 Accucheck Value: 499 Accucheck Value: 392 Accucheck Value: 370 Lab Results-Last 24 Hours 12/11/17 12/11/17 12/12/17 Range/Units 16:40 21:06 05:49 WBC 12.5 H (4.0-10.5) K/mm3 RBC 2.72 L (4.1-5.6) M/mm3 Hgb 7.6 L (12.5-18.0) gm/dl Hct 25.3 L (42-50) % MCV 93.0 (78-100) fl MCH 27.9 (26-32) pg MCHC 30.0 L (32-36) g/dl RDW 16.1 H (11.5-14.0) % Plt Count 438 (150-450) K/mm3 MPV 8.9 (6-9.5) fl Absolute Granulocytes 9.39 H (1.4-6.9) Segmented Neutrophils 80 H (36.-66.) % Lymphocytes (Manual) 15 L (24-44) % Monocytes (Manual) 3 (0.0-12.0) % Eosinophils (Manual) 2 (0.00-3.0) % Platelet Estimate NORMAL (NORMAL) RBC Morphology ABNORMAL Anisocytosis 1+ Sodium 144 (137-145) mmol/L Potassium 6.2 H* (3.5-5.1) mmol/L Chloride 118 H (98-107) mmol/L Carbon Dioxide 17 L (22-30) mmol/L Anion Gap 15.3 H (5-15) MEQ/L BUN 40 H (9-20) mg/dL Creatinine 1.39 H (0.66-1.25) mg/dL Estimated GFR 51.9 ML/MIN Glucose 380 H 514 H* (74-106) mg/dL Calcium 8.5 (8.4-10.2) mg/dL Magnesium (1.6-2.3) mg/dL Total Bilirubin (0.2-1.3) mg/dL AST (17-59) U/L ALT (0-50) U/L Alkaline Phosphatase (38-126) U/L Serum Total Protein (6.3-8.2) g/dL Albumin (3.5-5.0) g/dL 12/12/17 Range/Units 05:49 WBC (4.0-10.5) K/mm3 RBC (4.1-5.6) M/mm3 Hgb (12.5-18.0) gm/dl Hct (42-50) % MCV (78-100) fl MCH (26-32) pg MCHC (32-36) g/dl RDW (11.5-14.0) % Plt Count (150-450) K/mm3 MPV (6-9.5) fl Absolute Granulocytes (1.4-6.9) Segmented Neutrophils (36.-66.) % Lymphocytes (Manual) (24-44) % Monocytes (Manual) (0.0-12.0) % Eosinophils (Manual) (0.00-3.0) % Platelet Estimate (NORMAL) RBC Morphology Anisocytosis Sodium 143 (137-145) mmol/L Potassium 5.9 H (3.5-5.1) mmol/L Chloride 116 H (98-107) mmol/L Carbon Dioxide 18 L (22-30) mmol/L Anion Gap 15.1 H (5-15) MEQ/L BUN 34 H (9-20) mg/dL Creatinine 1.35 H (0.66-1.25) mg/dL Estimated GFR 53.6 ML/MIN Glucose 245 H (74-106) mg/dL Calcium 8.9 (8.4-10.2) mg/dL Magnesium 1.6 (1.6-2.3) mg/dL Total Bilirubin < 0.10 L (0.2-1.3) mg/dL AST 9 L (17-59) U/L ALT 26 (0-50) U/L Alkaline Phosphatase 115 (38-126) U/L Serum Total Protein 5.9 L (6.3-8.2) g/dL Albumin 2.7 L (3.5-5.0) g/dL Assessment/Plan (1) Acute renal failure Current Visit: No Status: Acute Onset Date: ~12/10/17 (2) Hyperkalemia Current Visit: Yes Status: Acute Onset Date: ~12/10/17 Code(s): E87.5 - HYPERKALEMIA (3) Dehydration Current Visit: No Status: Acute Onset Date: ~12/10/17 Code(s): E86.0 - DEHYDRATION (4) UTI (urinary tract infection) Current Visit: No Status: Acute Onset Date: ~12/10/17 Assessment & Plan: continue cipro Code(s): N39.0 - URINARY TRACT INFECTION, SITE NOT SPECIFIED (5) Metabolic acidosis Current Visit: Yes Status: Acute Onset Date: ~12/11/17 Code(s): E87.2 - ACIDOSIS
[2017-12-12] MEDS ORDERED: Aranesp 60 MCG SQ ONE (09:00)
[2017-12-12] MEDS: SODIUM BICARBONATE IV SCH (10:10)
[2017-12-12] MEDS: [UNRECOGNIZED DRUG - OTHER] IV SCH (10:10)
[2017-12-12] MEDS: Lantus Insulin SQ SCH (10:53)
[2017-12-12] MEDS: Flomax 0.4 MG PO SCH ×2 (10:55→22:40)
[2017-12-12] MEDS: CASODEX PO SCH (10:55)
[2017-12-12] MEDS: Lopressor 25MG Tab PO SCH ×2 (10:55→22:41)
[2017-12-12] MEDS: ECOTRIN 81 MG PO SCH (10:55)
[2017-12-12] MEDS: NON-FORMULARY ITEM PO SCH ×2 (10:56→22:41)
[2017-12-12] MEDS: Megace 40 MG/ML PO SCH (10:57)
[2017-12-12] MEDS: Cipro 500 MG PO SCH ×2 (11:00→22:40)
[2017-12-12] MEDS: IMODIUM 2 MG PO PRN (16:52)
[2017-12-12] MEDS ORDERED: NovoLOG Insulin SQ ONE (22:15)
[2017-12-12] MEDS ORDERED: Lantus Insulin SQ ONE (22:15)
[2017-12-12] MEDS: NORCO 5/325 MG PO PRN (22:40)
[2017-12-13] MEDS: [UNRECOGNIZED DRUG - OTHER] IV SCH (03:56)
[2017-12-13] MEDS: SODIUM BICARBONATE IV SCH (03:56)
[2017-12-13 06:24] LABS: ANION GAP 11.1 MEQ/L (5-15); Calcium 8.9 mg/dL (8.4-10.2); Creatinine 1 1.29 mg/dL (0.66-1.25); Granulocyte Absolute (ANC) 8.59 (1.4-6.9); Hematocrit 24.7 % (42-50); Hemoglobin 7.4 gm/dl (12.5-18.0); Mean Cell Volume 93.2 fl (78-100); Mean Corpuscular Hemoglobin 27.9 pg (26-32); Mean Platelet Volume 8.9 fl (6-9.5); Platelet Count 430 K/mm3 (150-450); Potassium 5.9 mmol/L (3.5-5.1); Red Blood Count 2.65 M/mm3 (4.1-5.6); Red Cell Distribution Width 15.9 % (11.5-14.0); White Blood Count 11.3 K/mm3 (4.0-10.5)
[2017-12-13 07:50] VITALS: BP 192/78; PULSE 82; O2SAT 96
[2017-12-13 07:57] LABS: BAND 5 % (0.0-2.0); Basophil 1 % (0.0-1.0); Eosinophil 2 % (0.00-3.0); Lymphocytes 17 % (24-44); Monocyte 5 % (0.0-12.0); Neutrophils 70 % (36.-66.); Total Cells Counted 100
[2017-12-13 07:59] LABS: ANISOCYTOSIS 1+; Hypochromia 1+; Platelet Estimate NORMAL (NORMAL)
[2017-12-13] MEDS: ECOTRIN 81 MG PO SCH (08:01)
[2017-12-13] MEDS: Flomax 0.4 MG PO SCH (08:01)
[2017-12-13] MEDS: Cipro 500 MG PO SCH (08:02)
[2017-12-13] MEDS: PATIENT OWN MEDICATION PO SCH (08:04)
[2017-12-13] MEDS: CASODEX PO SCH (08:04)
[2017-12-13] MEDS: Lantus Insulin SQ SCH (08:04)
[2017-12-13] MEDS: NON-FORMULARY ITEM PO SCH (08:05)
[2017-12-13] MEDS: Lopressor 25MG Tab PO SCH (08:05)
[2017-12-13] MEDS: NovoLOG Insulin SQ PRN (08:05)
[2017-12-13] MEDS: Megace 40 MG/ML PO SCH (08:06)
--- NOTE | 2017-12-13 08:13 | PCM.DS ---
Discharge Summary Date of Admission: 12/09/17 13:54 Admitting Physician: CARLOS ALEJANDRE Consults: Consults on Case 12/11/17 08:14 Consult Nephrology Primary Care Provider: CARLOS ALEJANDRE Allergies Allergies No Known Drug Allergies Allergy (Verified 11/29/17 09:36) Hospital Summary - Hospital Course Hospital Course: doing well, was admitted with confusion and uti, metabolic acidosis. was seen by Dr Pitt and advised to stop trimethoprim and was given bicarb. he is feeling well, appetite is good. - Vitals & Intake/Output Vital Signs: Vital Signs Temperature 98.2 F 12/13/17 07:49 Pulse Rate 82 12/13/17 07:49 Respiratory Rate 18 12/13/17 07:49 Blood Pressure 192/78 12/13/17 07:49 O2 Sat by Pulse Oximetry 96 12/13/17 07:49 Intake & Output: Intake & Output 12/10/17 12/11/17 12/12/17 12/13/17 11:59 11:59 11:59 11:59 Intake Total 800 3382 4266 2144 Output Total 401 301 0259 700 Balance 450 2432 2786 1444 Weight 62.2 kg - Lab Result Diagrams: 12/13/17 05:30 12/13/17 05:30 Lab Results-Last 24 Hrs: Accuchecks Date 12/12/17 Time 22:00 Accucheck Value: 498 Accucheck Value: 437 Accucheck Value: 476 Lab Results-Last 24 Hours 12/13/17 12/13/17 Range/Units 05:30 05:30 WBC 11.3 H (4.0-10.5) K/mm3 RBC 2.65 L (4.1-5.6) M/mm3 Hgb 7.4 L (12.5-18.0) gm/dl Hct 24.7 L (42-50) % MCV 93.2 (78-100) fl MCH 27.9 (26-32) pg MCHC 30.0 L (32-36) g/dl RDW 15.9 H (11.5-14.0) % Plt Count 430 (150-450) K/mm3 MPV 8.9 (6-9.5) fl Absolute Granulocytes 8.59 H (1.4-6.9) Segmented Neutrophils 70 H (36.-66.) % Band Neutrophils 5 H (0.0-2.0) % Lymphocytes (Manual) 17 L (24-44) % Monocytes (Manual) 5 (0.0-12.0) % Eosinophils (Manual) 2 (0.00-3.0) % Basophils (Manual) 1 (0.0-1.0) % Hypochromia 1+ Platelet Estimate NORMAL (NORMAL) RBC Morphology ABNORMAL Anisocytosis 1+ Sodium 140 (137-145) mmol/L Potassium 5.9 H (3.5-5.1) mmol/L Chloride 111 H (98-107) mmol/L Carbon Dioxide 24 (22-30) mmol/L Anion Gap 11.1 (5-15) MEQ/L BUN 31 H (9-20) mg/dL Creatinine 1.29 H (0.66-1.25) mg/dL Estimated GFR 56.5 ML/MIN Glucose 280 H (74-106) mg/dL Calcium 8.9 (8.4-10.2) mg/dL Micro Results-Entire Visit: Accuchecks Date 12/12/17 Time 22:00 Accucheck Value: 498 Accucheck Value: 437 Accucheck Value: 476 - Procedures and Test Procedures and Tests throughout Hospitalization: Therapy Orders & Screens 12/11/17 09:03 EKG ROUTINE Comment: Diagnosis: acute /chronic renal failure,dehydration,uti Discharge Exam General Appearance: no apparent distress (f), alert Skin Exam: normal color Respiratory Exam: normal breath sounds, lungs clear, No respiratory distress Cardiovascular Exam: regular rate/rhythm, normal heart sounds Gastrointestinal/Abdomen Exam: soft, No tenderness, No mass Extremity Exam: normal inspection, normal range of motion Final Diagnosis/Problem List - Final Discharge Diagnosis/Problem (1) Acute renal failure Current Visit: No Status: Acute Onset Date: ~12/10/17 Assessment & Plan: resolved with hydration (2) Hyperkalemia Current Visit: Yes Status: Acute Onset Date: ~12/10/17 Assessment & Plan: improved, will follow now that acidosis is corrected. (3) Dehydration Current Visit: No Status: Acute Onset Date: ~12/10/17 (4) UTI (urinary tract infection) Current Visit: No Status: Acute Onset Date: ~12/10/17 Assessment & Plan: on cipro 250mg bid (5) Metabolic acidosis Current Visit: Yes Status: Acute Onset Date: ~12/11/17 - Discharge Disposition: Home, Self-Care Condition: Stable Prescriptions: New Ciprofloxacin [Cipro 500 MG] 250 mg PO BID #7 tablet Continue Tamsulosin HCl 0.4 mg [Flomax 0.4 MG] 0.8 mg PO BID Bicalutamide [Casodex] 50 mg PO DAILY Metoprolol Tartrate 50 mg [Lopressor 50 MG] 25 mg PO BID Lipase/Protease/Amylase [Misty Pierson 24,000 Units Capsule] 24,000 each PO AC Insulin Glargine,Hum.rec.anlog [Lantus] 10 unit SQ DAILY Simvastatin [Zocor] 40 mg PO HS Alprazolam 0.25 mg [xanAX 0.25 MG] 0.25 mg PO Q6HPRN PRN PRN Reason: Anxiety Nitroglycerin 0.4 mg Tablet [Nitrostat 0.4 MG Tablet] 0.4 mg SL Q5MIN PRN MR X 3 PRN #25 bottle PRN Reason: Chest Pain Hydrocodone/Acetaminophen [Hydrocodon-Acetaminophen 5-325] 1 tab PO Q4H PRN PRN PRN Reason: Pain Megestrol Acetate 40 mg/ml [Megace 40 MG/ML] 20 ml PO DAILY Glipizide [Glucotrol] 5 mg PO 1700 Aspirin EC 81 mg [Ecotrin 81 mg] 162 mg PO DAILY Darbepoetin Mika 60 Mcg [Aranesp 60 Mcg Syringe] 60 mcg IJ UD Ondansetron ODT 4 MG [Zofran Odt 4 mg] 4 mg PO Q8H PRN PRN PRN Reason: Nausea glipiZIDE [Glipizide] 2.5 mg PO LUNCH Discontinued Trimethoprim 100 mg PO DAILY Additional Instructions: patient has cipro at home, take 250mg bid x 7 days. push fluids, discontinue trimethoprim and have bmp done in 1 week as ordered. Follow up with: CARLOS ALEJANDRE MD [Primary Care Provider] - 1 Week
== END 2017-12-13 10:00 | disposition home or self-care (01) | DRG 683 ==
LOC: MED SURG 13:54
PROVIDERS: ADMIT Family Medicine; ATTEND Family Medicine
DX: N17.9 Acute kidney failure, unspecified (principal); E87.2 Acidosis; I25.810 Atherosclerosis of coronary artery bypass graft(s) without angina pectoris; E87.5 Hyperkalemia; E86.0 Dehydration; F41.9 Anxiety disorder, unspecified; I12.9 Hypertensive chronic kidney disease with stage 1 through stage 4 chronic kidney disease, or unspecified chronic kidney disease; N18.9 Chronic kidney disease, unspecified; I50.9 Heart failure, unspecified; E78.00 Pure hypercholesterolemia, unspecified; J44.9 Chronic obstructive pulmonary disease, unspecified; E11.9 Type 2 diabetes mellitus without complications; Z79.4 Long term (current) use of insulin; Z79.899 Other long term (current) drug therapy; Z85.46 Personal history of malignant neoplasm of prostate; Z85.51 Personal history of malignant neoplasm of bladder
CPT/HCPCS: 36415; 80048; 80053; 81000; 82947; 83036; 83735; 85025; 87086; 93005; J0696; J0881; A9270-GY

== ENCOUNTER 2017-12-18 12:34 | Observation (INO) | payer MEDICARE, OTHER ==
[2017-12-18 12:50] LABS: Hematocrit 30.8 % (42-50); Hemoglobin 8.9 gm/dl (12.5-18.0); Mean Cell Volume 98.1 fl (78-100); Mean Corpuscular Hemoglobin 28.3 pg (26-32); Mean Corpuscular Hgb Concent. 28.9 g/dl (32-36); Mean Platelet Volume 8.7 fl (6-9.5); Platelet Count 443 K/mm3 (150-450); Red Blood Count 3.14 M/mm3 (4.1-5.6); Red Cell Distribution Width 17.7 % (11.5-14.0); White Blood Count 12.1 K/mm3 (4.0-10.5)
[2017-12-18 13:02] LABS: Appearance CLOUDY (CLEAR); Bilirubin NEGATIVE (NEGATIVE); Glucose 250 mg/dL (NEGATIVE); Ketones NEGATIVE (NEGATIVE); Leukocyte Esterase 2+ (NEGATIVE); Nitrite NEGATIVE (NEGATIVE); Protein,Urine Dip 300 (Negative); Specific Gravity 1.015 (1.005-1.025); Urobilinogen NORMAL mg/dL (0-1)
[2017-12-18 13:03] LABS: Blood 250 Ery/ul (0-5)
[2017-12-18] MEDS ORDERED: Sodium Chloride 0.9% 1000 ML 1,000 ML IV SCH (14:15)
[2017-12-18 14:35] LABS: ALBUMIN 3.1 g/dL (3.5-5.0); ALKALINE PHOSPHATASE 118 U/L (38-126); ANION GAP 13.2 MEQ/L (5-15); BILIRUBIN,TOTAL < 0.10 mg/dL (0.2-1.3); BLOOD UREA NITROGEN 42 mg/dL (9-20); CHLORIDE 108 mmol/L (98-107); Carbon Dioxide 27 mmol/L (22-30); Creatinine 1 1.49 mg/dL (0.66-1.25); Glucose 355 mg/dL (74-106); Potassium 5.5 mmol/L (3.5-5.1); SGOT/AST 13 U/L (17-59); SGPT/ALT 28 U/L (0-50); SODIUM 143 mmol/L (137-145); Total Protein 6.5 g/dL (6.3-8.2)
[2017-12-18 15:17] LABS: Bacteria MODERATE /HPF (NEGATIVE); Epithelial Cells RARE /HPF (FEW); RBC 15-25 /HPF (0-2); WBC >100 /HPF (0-5)
[2017-12-18 15:24] LABS: BAND 1 % (0.0-2.0); Basophilic Stippling 1+; Lymphocytes 28 % (24-44); Monocyte 7 % (0.0-12.0); Neutrophils 64 % (36.-66.); Platelet Estimate NORMAL (NORMAL); Total Cells Counted 100
[2017-12-18 15:26] LABS: Hypochromia 1+
[2017-12-18 15:28] LABS: ANISOCYTOSIS 1+; Polychromasia 2+
[2017-12-18] MEDS: Sodium Chloride 0.9% 1000 ML 1,000 ML IV SCH (15:38)
[2017-12-18] MEDS ORDERED: IMODIUM 2 MG PO PRN (15:45)
[2017-12-18] MEDS ORDERED: Zofran 4 MG/2 ML VIAL IV PRN (15:49)
[2017-12-18] MEDS ORDERED: NORCO 5/325 MG PO PRN (15:52)
[2017-12-18] MEDS ORDERED: Nitrostat 0.4 MG Tablet SL PRN (15:54)
[2017-12-18] MEDS ORDERED: AMYLASE PO SCH (16:30)
[2017-12-18] MEDS ORDERED: PROTEASE PO SCH (16:30)
[2017-12-18] MEDS ORDERED: LIPASE PO SCH (16:30)
--- NOTE | 2017-12-18 16:37 | PCM.HP ---
History of Present Illness - Chief Complaint Chief Complaint: WEAKNESS History of Present Illness: is a 82 year old male who was recently hospitalized with a complicated UTI, metabolic acidosis and acute on chronic renal failure. urine culture grew pseudomonas/citrobacter sens to cipro and was sent home on it, had trimethoprim stopped by nephrology to metabolic acidosis. For the last 3 days he has been profoundly weak and having difficulty performing ADL's at home. if having some difficulty caring for him in the home. No fever or chills he knows of, no pain. - Review of Systems Constitutional: Fatigue, Weakness, No Fever, No Chills Eyes: No Symptoms Respiratory: No Cough, No Short Of Breath Cardiac: No Chest Pain, No Edema, No Syncope Abdominal/Gastrointestinal: Diarrhea (chronic from pancreatic insufficiency), No Abdominal Pain, No Nausea, No Vomiting Genitourinary Symptoms: No Dysuria Skin: No Rash All Other Systems: Reviewed and Negative Medications & Allergies Home Medications: Home Medication List Bicalutamide [Casodex] 50 mg PO DAILY 08/18/16 [History Confirmed 12/18/17] Insulin Glargine,Hum.rec.anlog [Lantus] 10 unit SQ DAILY 08/18/16 [History Confirmed 12/18/17] Lipase/Protease/Amylase [Misty Pierson 24,000 Units Capsule] 1 - 2 tab PO AC [History Confirmed 12/18/17] Metoprolol Tartrate 50 mg [Lopressor 50 MG] 25 mg PO BID 08/18/16 [ History Confirmed 12/18/17] Simvastatin [Zocor] 40 mg PO HS 08/18/16 [History Confirmed 12/18/17] Tamsulosin HCl 0.4 mg [Flomax 0.4 MG] 0.8 mg PO DAILY 08/18/16 [History Confirmed 12/18/17] Alprazolam 0.25 mg [xanAX 0.25 MG] 0.25 mg PO Q6HPRN PRN 09/05/17 [ History Confirmed 12/18/17] Nitroglycerin 0.4 mg Tablet [Nitrostat 0.4 MG Tablet] 0.4 mg SL Q5MIN PRN MR X 3 PRN #25 bottle 09/12/17 [Rx Confirmed 12/18/17] Aspirin EC 81 mg [Ecotrin 81 mg] 162 mg PO DAILY 11/01/17 [History Confirmed 12/18/17] Glipizide [Glucotrol] 5 mg PO 1700 11/01/17 [History Confirmed 12/18/17] Hydrocodone/Acetaminophen [Hydrocodon-Acetaminophen 5-325] 1 tab PO Q4H PRN PRN 11/01/17 [History Confirmed 12/18/17] Megestrol Acetate 40 mg/ml [Megace 40 MG/ML] 20 ml PO DAILY 11/01/17 [ History Confirmed 12/18/17] Ondansetron ODT 4 MG [Zofran Odt 4 mg] 4 mg PO Q8H PRN PRN 12/09/17 [ History Confirmed 12/18/17] glipiZIDE [Glipizide] 2.5 mg PO LUNCH 12/09/17 [History Confirmed 12/18/17] Budesonide/Formoterol Fumarate [Symbicort 160-4.5 Mcg Inhaler] 2 puff IH DAILY 12/18/17 [History Confirmed 12/18/17] Sodium Bicarbonate 650 mg PO BID 12/18/17 [History Confirmed 12/18/17] Trimethoprim 100 mg PO DAILY 12/18/17 [History Confirmed 12/18/17] Allergies/Adverse Reactions: Allergies Allergy/AdvReac Type Severity Reaction Status Date / Time No Known Drug Allergies Allergy Verified 12/18/17 14:17 - Past Medical History Past Medical History: Yes Neurological History: No Pertinent History ENT History: Cataracts Cardiac History: Arrhythmia, Congestive Heart Failure, Coronary Artery Disease, High Cholesterol, Hypertension Respiratory History: COPD Endocrine Medical History: Diabetes Type II Musculoskelatal History: No Pertinent History GI Medical History: No Pertinent History History: No Pertinent History Pyscho-Social History: No Pertinent History Male Reproductive Disorders: Prostate Cancer Comment: HYPOTENSION - Past Surgical History Past Surgical History: Yes Neuro Surgical History: No Pertinent History Cardiac History: CABG Respiratory Surgery: No Pertinent History GI Surgical History: No Pertinent History Genitourinary Surgical Hx: No Pertinent History Musculskeletal Surgical Hx: No Pertinent History Male Surgical History: Prostate Surgery Other Surgical History: TURP 09/08 - Social History Smoking Status: Former smoker How long have you smoked: 70 Exposure to second hand smoke: No Alcohol: None Drug Use: none - Physical Exam Vital Signs: Vital Signs - 24 hr Temp Pulse Resp BP Pulse Ox 12/18/17 13:40 98.5 F 91 H 18 125/58 92 L General Appearance: thin, other (weak) Neurologic Exam: alert, cooperative, ux interaction designer II-XII nml as tested, No motor deficits , No sensory deficit, No confusion, No agitation, No slurred speech Eye Exam: PERRL/EOMI, eyes nml inspection Neck Exam: normal inspection, non-tender, supple, full range of motion Respiratory Exam: normal breath sounds, lungs clear, No respiratory distress Cardiovascular Exam: regular rate/rhythm, normal heart sounds, normal peripheral pulses Gastrointestinal/Abdomen Exam: soft, normal bowel sounds, No tenderness, No mass Extremity Exam: normal inspection, normal range of motion, pelvis stable Skin Exam: normal color, warm, dry, No rash Results - Labs Lab/Micro Results: Lab Results-Last 24 Hours 12/18/17 12/18/17 12/18/17 Range/Units 12:39 12:39 12:39 WBC 12.1 H (4.0-10.5) K/mm3 RBC 3.14 L (4.1-5.6) M/mm3 Hgb 8.9 L (12.5-18.0) gm/dl Hct 30.8 L (42-50) % MCV 98.1 (78-100) fl MCH 28.3 (26-32) pg MCHC 28.9 L (32-36) g/dl RDW 17.7 H (11.5-14.0) % Plt Count 443 (150-450) K/mm3 MPV 8.7 (6-9.5) fl Absolute Granulocytes 8.60 H (1.4-6.9) Segmented Neutrophils 64 (36.-66.) % Band Neutrophils 1 (0.0-2.0) % Lymphocytes (Manual) 28 (24-44) % Monocytes (Manual) 7 (0.0-12.0) % Hypochromia 1+ Platelet Estimate NORMAL (NORMAL) Polychromasia 2+ Basophilic Stippling 1+ Anisocytosis 1+ Sodium 143 (137-145) mmol/L Potassium 5.5 H (3.5-5.1) mmol/L Chloride 108 H (98-107) mmol/L Carbon Dioxide 27 (22-30) mmol/L Anion Gap 13.2 (5-15) MEQ/L BUN 42 H (9-20) mg/dL Creatinine 1.49 H (0.66-1.25) mg/dL Estimated GFR 47.9 ML/MIN Glucose 355 H (74-106) mg/dL Calcium 9.0 (8.4-10.2) mg/dL Total Bilirubin < 0.10 L (0.2-1.3) mg/dL AST 13 L (17-59) U/L ALT 28 (0-50) U/L Alkaline Phosphatase 118 (38-126) U/L Serum Total Protein 6.5 (6.3-8.2) g/dL Albumin 3.1 L (3.5-5.0) g/dL Ur Collection Type VOID Urine Color YELLOW (YELLOW) Urine Appearance CLOUDY (CLEAR) Urine pH 5.0 (5-6) Ur Specific [place] 1.015 (1.005-1.025) Urine Protein 300 (Negative) Urine Ketones NEGATIVE (NEGATIVE) Urine Blood 250 (0-5) Horace/ul Urine Nitrite NEGATIVE (NEGATIVE) Urine Bilirubin NEGATIVE (NEGATIVE) Urine Urobilinogen NORMAL (0-1) mg/dL Ur Leukocyte Esterase 2+ (NEGATIVE) Urine Microscopic RBC 15-25 (0-2) /HPF Urine Microscopic WBC >100 (0-5) /HPF Ur Epithelial Cells RARE (FEW) /HPF Urine Bacteria MODERATE (NEGATIVE) /HPF Urine Yeast MODERATE (NEGATIVE) /HPF Urine Culture Reflexed YES (NO) Urine Glucose 250 (NEGATIVE) mg/dL Specimen Received 12/18/17 1230 Assessment/Plan (1) UTI (urinary tract infection) Current Visit: No Status: Acute Onset Date: ~12/10/17 Assessment & Plan: complicated, last stay had pseudomonas/citrobacter. will start on meropenem today as we await a repeat urine culture. Code(s): N39.0 - URINARY TRACT INFECTION, SITE NOT SPECIFIED (2) Dehydration Current Visit: No Status: Acute Onset Date: ~12/10/17 Assessment & Plan: gentle hydration ordered. bun/cr slightly elevated above baseline Code(s): E86.0 - DEHYDRATION (3) Acute on chronic kidney failure Current Visit: Yes Status: Acute Assessment & Plan: hydrate and observe Code(s): N17.9 - ACUTE KIDNEY FAILURE, UNSPECIFIED; N18.9 - CHRONIC KIDNEY DISEASE, UNSPECIFIED (4) Metabolic acidosis Current Visit: No Status: Acute Onset Date: ~12/11/17 Assessment & Plan: normal at this time, continue sodium bicarbonate at this time. Code(s): E87.2 - ACIDOSIS
[2017-12-18] MEDS: PATIENT OWN MEDICATION PO SCH (17:02)
[2017-12-18] MEDS: NovoLOG Insulin SQ PRN ×2 (17:02→22:39)
[2017-12-18] MEDS: MERREM 500MG 500 MG in Sodium Chloride 100ML MINI-BAG PLUS 100 ML IV SCH (17:02)
[2017-12-18] MEDS ORDERED: Advair Hfa 115/21 Common canister IH SCH (19:00)
[2017-12-18] MEDS ORDERED: SODIUM BICARBONATE 650 MG PO SCH (22:00)
[2017-12-18] MEDS: Lopressor 50 MG PO SCH (22:37)
[2017-12-18] MEDS: NON-FORMULARY ITEM (Sodium Bicarbonate [Sodium Bicarbonate] 0 MG) PO SCH (22:38)
[2017-12-18] MEDS: ZOCOR 20MG PO SCH (22:39)
[2017-12-18] MEDS: xanAX 0.25 MG PO PRN (22:39)
[2017-12-19 05:56] LABS: Granulocyte Absolute (ANC) 9.79 (1.4-6.9); Hematocrit 27.8 % (42-50); Hemoglobin 8.1 gm/dl (12.5-18.0); Mean Cell Volume 97.2 fl (78-100); Mean Corpuscular Hemoglobin 28.3 pg (26-32); Mean Corpuscular Hgb Concent. 29.1 g/dl (32-36); Platelet Count 391 K/mm3 (150-450); Red Blood Count 2.86 M/mm3 (4.1-5.6); White Blood Count 14.1 K/mm3 (4.0-10.5)
[2017-12-19] MEDS: MERREM 500MG 500 MG in Sodium Chloride 100ML MINI-BAG PLUS 100 ML IV SCH ×3 (05:58→21:46)
[2017-12-19 06:51] LABS: ANION GAP 10.6 MEQ/L (5-15); Calcium 8.5 mg/dL (8.4-10.2); Creatinine 1 1.36 mg/dL (0.66-1.25); Potassium 5.3 mmol/L (3.5-5.1)
[2017-12-19 07:07] LABS: ANISOCYTOSIS 1+; BAND 1 % (0.0-2.0); Lymphocytes 29 % (24-44); Monocyte 1 % (0.0-12.0); Neutrophils 69 % (36.-66.); Platelet Estimate NORMAL (NORMAL); Poikilocytosis 1+; Polychromasia 1+; Total Cells Counted 100
--- NOTE | 2017-12-19 08:12 | PCM.NOTE ---
Date and Time: 12/19/17 08 Subjective Assessment: patient reports he is feeling better today, no new complaints or concerns and states he has been out of bed several times this morning and is more steady on his feet. Objective Exam General Appearance: no apparent distress, alert Skin Exam: normal color, warm, dry Respiratory Exam: normal breath sounds, lungs clear, No respiratory distress Cardiovascular Exam: regular rate/rhythm, normal heart sounds Gastrointestinal/Abdomen Exam: soft, No tenderness, No mass Extremity Exam: normal inspection, normal range of motion OBJECTIVE DATA Vital Signs: Vital Signs - 24 hr Temp Pulse Resp BP Pulse Ox 12/19/17 07:10 98 F 78 20 142/60 90 L 12/19/17 04:07 97.7 F 90 20 150/67 92 L 12/18/17 23:50 98.2 F 100 H 16 150/68 91 L 12/18/17 20:00 98.6 F 97 H 18 119/56 92 L 12/18/17 16:00 98.6 F 86 20 136/91 92 L 12/18/17 13:40 98.5 F 91 H 18 125/58 92 L Pain Assessment - Last Documented Pain Intensity 0 Pain Scale Used 0-10 Pain Scale Intake and Output: Intake & Output 12/16/17 12/17/17 12/18/17 12/19/17 11:59 11:59 11:59 11:59 Intake Total 1633 Output Total 825 Balance 808 Weight 67.1 kg Lab Results: Accuchecks Accucheck Value: 200 Accucheck Value: 276 Lab Results-Last 24 Hours 12/18/17 12/18/17 12/18/17 Range/Units 12:39 12:39 12:39 WBC 12.1 H (4.0-10.5) K/mm3 RBC 3.14 L (4.1-5.6) M/mm3 Hgb 8.9 L (12.5-18.0) gm/dl Hct 30.8 L (42-50) % MCV 98.1 (78-100) fl MCH 28.3 (26-32) pg MCHC 28.9 L (32-36) g/dl RDW 17.7 H (11.5-14.0) % Plt Count 443 (150-450) K/mm3 MPV 8.7 (6-9.5) fl Absolute Granulocytes 8.60 H (1.4-6.9) Segmented Neutrophils 64 (36.-66.) % Band Neutrophils 1 (0.0-2.0) % Lymphocytes (Manual) 28 (24-44) % Monocytes (Manual) 7 (0.0-12.0) % Hypochromia 1+ Platelet Estimate NORMAL (NORMAL) RBC Morphology Polychromasia 2+ Poikilocytosis Basophilic Stippling 1+ Anisocytosis 1+ Sodium 143 (137-145) mmol/L Potassium 5.5 H (3.5-5.1) mmol/L Chloride 108 H (98-107) mmol/L Carbon Dioxide 27 (22-30) mmol/L Anion Gap 13.2 (5-15) MEQ/L BUN 42 H (9-20) mg/dL Creatinine 1.49 H (0.66-1.25) mg/dL Estimated GFR 47.9 ML/MIN Glucose 355 H (74-106) mg/dL Calcium 9.0 (8.4-10.2) mg/dL Total Bilirubin < 0.10 L (0.2-1.3) mg/dL AST 13 L (17-59) U/L ALT 28 (0-50) U/L Alkaline Phosphatase 118 (38-126) U/L Serum Total Protein 6.5 (6.3-8.2) g/dL Albumin 3.1 L (3.5-5.0) g/dL Ur Collection Type VOID Urine Color YELLOW (YELLOW) Urine Appearance CLOUDY (CLEAR) Urine pH 5.0 (5-6) Ur Specific [place] 1.015 (1.005-1.025) Urine Protein 300 (Negative) Urine Ketones NEGATIVE (NEGATIVE) Urine Blood 250 (0-5) Horace/ul Urine Nitrite NEGATIVE (NEGATIVE) Urine Bilirubin NEGATIVE (NEGATIVE) Urine Urobilinogen NORMAL (0-1) mg/dL Ur Leukocyte Esterase 2+ (NEGATIVE) Urine Microscopic RBC 15-25 (0-2) /HPF Urine Microscopic WBC >100 (0-5) /HPF Ur Epithelial Cells RARE (FEW) /HPF Urine Bacteria MODERATE (NEGATIVE) /HPF Urine Yeast MODERATE (NEGATIVE) /HPF Urine Culture Reflexed YES (NO) Urine Glucose 250 (NEGATIVE) mg/dL Specimen Received 12/18/17 1230 05/31/18 05/31/18 Range/Units 05:33 05:33 WBC 14.1 H (4.0-10.5) K/mm3 RBC 2.86 L (4.1-5.6) M/mm3 Hgb 8.1 L (12.5-18.0) gm/dl Hct 27.8 L (42-50) % MCV 97.2 (78-100) fl MCH 28.3 (26-32) pg MCHC 29.1 L (32-36) g/dl RDW 18.0 H (11.5-14.0) % Plt Count 391 (150-450) K/mm3 MPV 9.0 (6-9.5) fl Absolute Granulocytes 9.79 H (1.4-6.9) Segmented Neutrophils 69 H (36.-66.) % Band Neutrophils 1 (0.0-2.0) % Lymphocytes (Manual) 29 (24-44) % Monocytes (Manual) 1 (0.0-12.0) % Hypochromia Platelet Estimate NORMAL (NORMAL) RBC Morphology ABNORMAL Polychromasia 1+ Poikilocytosis 1+ Basophilic Stippling Anisocytosis 1+ Sodium 141 (137-145) mmol/L Potassium 5.3 H (3.5-5.1) mmol/L Chloride 111 H (98-107) mmol/L Carbon Dioxide 25 (22-30) mmol/L Anion Gap 10.6 (5-15) MEQ/L BUN 38 H (9-20) mg/dL Creatinine 1.36 H (0.66-1.25) mg/dL Estimated GFR 53.2 ML/MIN Glucose 187 H (74-106) mg/dL Calcium 8.5 (8.4-10.2) mg/dL Total Bilirubin (0.2-1.3) mg/dL AST (17-59) U/L ALT (0-50) U/L Alkaline Phosphatase (38-126) U/L Serum Total Protein (6.3-8.2) g/dL Albumin (3.5-5.0) g/dL Ur Collection Type Urine Color (YELLOW) Urine Appearance (CLEAR) Urine pH (5-6) Ur Specific [place] (1.005-1.025) Urine Protein (Negative) Urine Ketones (NEGATIVE) Urine Blood (0-5) Horace/ul Urine Nitrite (NEGATIVE) Urine Bilirubin (NEGATIVE) Urine Urobilinogen (0-1) mg/dL Ur Leukocyte Esterase (NEGATIVE) Urine Microscopic RBC (0-2) /HPF Urine Microscopic WBC (0-5) /HPF Ur Epithelial Cells (FEW) /HPF Urine Bacteria (NEGATIVE) /HPF Urine Yeast (NEGATIVE) /HPF Urine Culture Reflexed (NO) Urine Glucose (NEGATIVE) mg/dL Specimen Received Assessment/Plan (1) UTI (urinary tract infection) Current Visit: No Status: Acute Onset Date: ~12/10/17 Assessment & Plan: on meropenem, urine culture pending. last was complicated UTI and failed outpatient therapy with po cipro Code(s): N39.0 - URINARY TRACT INFECTION, SITE NOT SPECIFIED (2) Dehydration Current Visit: No Status: Acute Onset Date: ~12/10/17 Code(s): E86.0 - DEHYDRATION (3) Acute on chronic kidney failure Current Visit: Yes Status: Acute Code(s): N17.9 - ACUTE KIDNEY FAILURE, UNSPECIFIED; N18.9 - CHRONIC KIDNEY DISEASE, UNSPECIFIED (4) Metabolic acidosis Current Visit: No Status: Acute Onset Date: ~12/11/17 Code(s): E87.2 - ACIDOSIS
[2017-12-19] MEDS: PATIENT OWN MEDICATION PO SCH ×3 (08:47→16:54)
[2017-12-19] MEDS: Lopressor 50 MG PO SCH ×2 (08:47→21:44)
[2017-12-19] MEDS: NON-FORMULARY ITEM (Sodium Bicarbonate [Sodium Bicarbonate] 0 MG) PO SCH ×2 (08:48→21:50)
[2017-12-19] MEDS: NovoLOG Insulin SQ PRN ×4 (08:49→21:47)
[2017-12-19] MEDS ORDERED: Lantus Insulin SQ SCH (10:00)
[2017-12-19] MEDS ORDERED: BICALUTAMIDE 50 MG PO SCH (10:00)
[2017-12-19] MEDS ORDERED: Megace 40 MG/ML PO SCH (10:00)
[2017-12-19] MEDS ORDERED: NON-FORMULARY ITEM (Budesonide/Formoterol Fumarate [Symbicort 160-4.5 Mcg Inhaler] 2 PUFF) IH SCH (10:00)
[2017-12-19] MEDS ORDERED: ECOTRIN 81 MG PO SCH (10:00)
[2017-12-19] MEDS ORDERED: CASODEX PO SCH (10:00)
[2017-12-19] MEDS ORDERED: Flomax 0.4 MG PO SCH (10:00)
[2017-12-19] MEDS: Sodium Chloride 0.9% 1000 ML 1,000 ML IV SCH (14:13)
[2017-12-19] MEDS: ZOCOR 20MG PO SCH (21:44)
[2017-12-19] MEDS: xanAX 0.25 MG PO PRN (22:37)
[2017-12-20 04:07] VITALS: O2SAT 97
[2017-12-20] MEDS: MERREM 500MG 500 MG in Sodium Chloride 100ML MINI-BAG PLUS 100 ML IV SCH (05:37)
[2017-12-20 06:07] LABS: Granulocyte Absolute (ANC) 7.92 (1.4-6.9); Hematocrit 26.4 % (42-50); Hemoglobin 7.5 gm/dl (12.5-18.0); Mean Cell Volume 99.2 fl (78-100); Mean Corpuscular Hgb Concent. 28.4 g/dl (32-36); Mean Platelet Volume 9.1 fl (6-9.5); Platelet Count 342 K/mm3 (150-450); Red Blood Count 2.66 M/mm3 (4.1-5.6); Red Cell Distribution Width 18.1 % (11.5-14.0); White Blood Count 11.2 K/mm3 (4.0-10.5)
[2017-12-20 06:24] LABS: Mean Corpuscular Hemoglobin 28.1 pg (26-32)
[2017-12-20 06:38] LABS: ANION GAP 8.5 MEQ/L (5-15); Calcium 8.3 mg/dL (8.4-10.2); Creatinine 1 1.26 mg/dL (0.66-1.25); Potassium 5.9 mmol/L (3.5-5.1)
[2017-12-20] MEDS: NovoLOG Insulin SQ PRN (07:37)
[2017-12-20] MEDS: PATIENT OWN MEDICATION PO SCH (07:43)
--- NOTE | 2017-12-20 08:19 | PCM.DS ---
Discharge Summary Date of Admission: 12/18/17 13:01 Admitting Physician: CARLOS ALEJANDRE Primary Care Provider: CARLOS ALEJANDRE Allergies Allergies No Known Drug Allergies Allergy (Verified 12/18/17 14:17) Hospital Summary - Hospital Course Hospital Course: patient was admitted with complicated UTI, improved with meropenem. has weakness and deconditioning from multiple hospitalizations recently - Vitals & Intake/Output Vital Signs: Vital Signs Temperature 98.7 F 12/20/17 04:00 Pulse Rate 78 12/20/17 04:00 Respiratory Rate 18 12/20/17 04:00 Blood Pressure 141/65 12/20/17 04:00 O2 Sat by Pulse Oximetry 97 12/20/17 04:00 Oxygen-Last Documented O2 Percentage 2 Liters = 28% Intake & Output: Intake & Output 12/17/17 12/18/17 12/19/17 12/20/17 11:59 11:59 11:59 11:59 Intake Total 1753 1667 Output Total 825 1050 Balance 928 617 Weight 67.1 kg - Lab Result Diagrams: 12/20/17 05:35 12/20/17 05:35 Lab Results-Last 24 Hrs: Accuchecks Date 12/19/17 Date 12/19/17 Date 12/19/17 Time 22:25 Time 16:30 Time 11:30 Accucheck Value: 291 Accucheck Value: 233 Accucheck Value: 3,830 Lab Results-Last 24 Hours 12/20/17 12/20/17 Range/Units 05:35 05:35 WBC 11.2 H (4.0-10.5) K/mm3 RBC 2.66 L (4.1-5.6) M/mm3 Hgb 7.5 L (12.5-18.0) gm/dl Hct 26.4 L (42-50) % MCV 99.2 (78-100) fl MCH 28.1 (26-32) pg MCHC 28.4 L (32-36) g/dl RDW 18.1 H (11.5-14.0) % Plt Count 342 (150-450) K/mm3 MPV 9.1 (6-9.5) fl Absolute Granulocytes 7.92 H (1.4-6.9) Sodium 141 (137-145) mmol/L Potassium 5.9 H (3.5-5.1) mmol/L Chloride 111 H (98-107) mmol/L Carbon Dioxide 28 (22-30) mmol/L Anion Gap 8.5 (5-15) MEQ/L BUN 35 H (9-20) mg/dL Creatinine 1.26 H (0.66-1.25) mg/dL Estimated GFR 58.1 ML/MIN Glucose 257 H (74-106) mg/dL Calcium 8.3 L (8.4-10.2) mg/dL Micro Results-Entire Visit: Microbiology 12/18/17 12:39 Urine Culture - Preliminary Urine, Void NO GROWTH TO DATE Accuchecks Date 12/19/17 Date 12/19/17 Date 12/19/17 Time 22:25 Time 16:30 Time 11:30 Accucheck Value: 291 Accucheck Value: 233 Accucheck Value: 3,830 - Procedures and Test Procedures and Tests throughout Hospitalization: Therapy Orders & Screens 12/18/17 14:12 OT Screen per Nursing Assess Comment: Protocol Order Physician Instructions: Greater than 3 points order OT Admission Screening Reason For Exam: Triggered on Admission Diagnosis: WEAKNESS Open Wound/Cellutlitis/Pressure Ulcers: No Acute Fx/ORIF/Change in wt bearing status: No Severe MUSCULOSKELETAL pain: No ADL Dysfunction: Yes Acute CVA w/Hemiparesis/Hemiplegia: No Decreased Functional Mobility/Strength: Yes Sprain/Strain: No Acute Post-op Mobility Dysfunction: No Total Points: 4 PT Screen per Nursing Assess Comment: Protocol Order Physician Instructions: Greater than 3 points order PT Admission Screenin Reason For Exam: Triggered on Admission Diagnosis: WEAKNESS Open Wound/Cellutlitis/Pressure Ulcers: No Acute Fx/ORIF/Change in wt bearing status: No Severe MUSCULOSKELETAL pain: No ADL Dysfunction: Yes Acute CVA w/Hemiparesis/Hemiplegia: No Decreased Functional Mobility/Strength: Yes Sprain/Strain: No Acute Post-op Mobility Dysfunction: No Total Points: 4 12/18/17 15:46 PT Eval & Treat ( Order) ROUTINE Reason for Eval:: weakness, deconditioning Diagnosis: WEAKNESS 12/19/17 19:39 Oxygen NASAL CANNULA 2 lpm Comment: Diagnosis: WEAKNESS Discharge Exam General Appearance: no apparent distress, alert, thin Skin Exam: normal color, warm, dry Respiratory Exam: normal breath sounds, lungs clear, No respiratory distress Cardiovascular Exam: regular rate/rhythm, normal heart sounds Gastrointestinal/Abdomen Exam: soft, No tenderness, No mass Extremity Exam: normal inspection, normal range of motion Final Diagnosis/Problem List - Final Discharge Diagnosis/Problem (1) UTI (urinary tract infection) Current Visit: Yes Status: Acute Onset Date: ~12/18/17 Assessment & Plan: continue IV meropenem (2) Dehydration Current Visit: Yes Status: Acute Onset Date: ~12/18/17 (3) Acute on chronic kidney failure Current Visit: Yes Status: Acute Onset Date: ~12/18/17 Assessment & Plan: improved (4) Metabolic acidosis Current Visit: Yes Status: Acute Onset Date: ~12/18/17 - Discharge Disposition: Swing Bed @ [facility] Condition: Stable Prescriptions: No Action Tamsulosin HCl 0.4 mg [Flomax 0.4 MG] 0.8 mg PO DAILY Bicalutamide [Casodex] 50 mg PO DAILY Metoprolol Tartrate 50 mg [Lopressor 50 MG] 25 mg PO BID Lipase/Protease/Amylase [Creon Dr 24,000 Units Capsule] 1 - 2 tab PO AC Insulin Glargine,Hum.rec.anlog [Lantus] 10 unit SQ DAILY Simvastatin [Zocor] 40 mg PO HS Alprazolam 0.25 mg [xanAX 0.25 MG] 0.25 mg PO Q6HPRN PRN PRN Reason: Anxiety Nitroglycerin 0.4 mg Tablet [Nitrostat 0.4 MG Tablet] 0.4 mg SL Q5MIN PRN MR X 3 PRN #25 bottle PRN Reason: Chest Pain Hydrocodone/Acetaminophen [Hydrocodon-Acetaminophen 5-325] 1 tab PO Q4H PRN PRN PRN Reason: Pain Megestrol Acetate 40 mg/ml [Megace 40 MG/ML] 20 ml PO DAILY Glipizide [Glucotrol] 5 mg PO 1700 Aspirin EC 81 mg [Ecotrin 81 mg] 162 mg PO DAILY Ondansetron ODT 4 MG [Zofran Odt 4 mg] 4 mg PO Q8H PRN PRN PRN Reason: Nausea glipiZIDE [Glipizide] 2.5 mg PO LUNCH Trimethoprim 100 mg PO DAILY Budesonide/Formoterol Fumarate [Symbicort 160-4.5 Mcg Inhaler] 2 puff IH DAILY Sodium Bicarbonate 650 mg PO BID Follow up with: CARLOS ALEJANDRE MD [Primary Care Provider] - 1 Week
[2017-12-20 09:05] VITALS: BP 112/55; PULSE 82
[2017-12-20 14:09] LABS: ANISOCYTOSIS 1+; Lymphocytes 17 % (24-44); Monocyte 7 % (0.0-12.0); Neutrophils 76 % (36.-66.); Platelet Estimate NORMAL (NORMAL); Poikilocytosis 1+; Polychromasia 1+; Total Cells Counted 100
== END 2017-12-20 09:43 | disposition swing bed (61) ==
LOC: LAB 12:34 → EDSTATUS 13:01 → MED SURG 13:01
PROVIDERS: ADMIT Family Medicine; ATTEND Family Medicine
DX: N39.0 Urinary tract infection, site not specified (principal); E86.0 Dehydration; N17.9 Acute kidney failure, unspecified; I12.9 Hypertensive chronic kidney disease with stage 1 through stage 4 chronic kidney disease, or unspecified chronic kidney disease; N18.9 Chronic kidney disease, unspecified; I25.810 Atherosclerosis of coronary artery bypass graft(s) without angina pectoris; E87.2 Acidosis; I50.9 Heart failure, unspecified; J44.9 Chronic obstructive pulmonary disease, unspecified; E11.9 Type 2 diabetes mellitus without complications; Z79.4 Long term (current) use of insulin; Z79.899 Other long term (current) drug therapy; Z85.46 Personal history of malignant neoplasm of prostate; Z72.0 Tobacco use
CPT/HCPCS: 36415; 80048; 80053; 81000; 85025; 87086; 94760; 97161; G0378; A9270-GY

== ENCOUNTER 2017-12-20 09:44 | Inpatient (IN) | payer MEDICARE, OTHER ==
[2017-12-20] MEDS ORDERED: Nitrostat 0.4 MG Tablet SL PRN (10:10)
[2017-12-20] MEDS ORDERED: Lopressor 50 MG PO SCH (10:10)
[2017-12-20] MEDS ORDERED: NORCO 5/325 MG PO PRN (10:10)
[2017-12-20] MEDS ORDERED: IMODIUM 2 MG PO PRN (10:10)
[2017-12-20] MEDS ORDERED: Zofran 4 MG/2 ML VIAL IV PRN (10:10)
[2017-12-20] MEDS: ECOTRIN 81 MG PO SCH (10:53)
[2017-12-20] MEDS: CASODEX PO SCH (10:54)
[2017-12-20] MEDS: Flomax 0.4 MG PO SCH (10:54)
[2017-12-20] MEDS: Megace 40 MG/ML PO SCH (10:55)
[2017-12-20] MEDS: NON-FORMULARY ITEM (Sodium Bicarbonate [Sodium Bicarbonate] 0 MG) PO SCH ×2 (10:56→21:51)
[2017-12-20] MEDS: Lantus Insulin SQ SCH (10:57)
[2017-12-20] MEDS: PATIENT OWN MEDICATION PO SCH ×2 (10:59→16:15)
[2017-12-20] MEDS: Lopressor 25MG Tab PO SCH ×2 (10:59→21:51)
[2017-12-20] MEDS: Sodium Chloride 0.9% 1000 ML 1,000 ML IV SCH (11:32)
[2017-12-20] MEDS: NovoLOG Insulin SQ PRN ×3 (11:32→21:52)
[2017-12-20] MEDS: MERREM 500MG 500 MG in Sodium Chloride 100ML MINI-BAG PLUS 100 ML IV SCH ×2 (14:44→21:51)
[2017-12-20] MEDS: ZOCOR 20MG PO SCH (21:52)
[2017-12-21] MEDS: xanAX 0.25 MG PO PRN ×2 (00:36→20:18)
[2017-12-21] MEDS: MERREM 500MG 500 MG in Sodium Chloride 100ML MINI-BAG PLUS 100 ML IV SCH ×3 (05:56→21:21)
[2017-12-21] MEDS ORDERED: Tums EX 750 MG PO PRN (07:24)
[2017-12-21] MEDS: PATIENT OWN MEDICATION PO SCH ×3 (07:34→16:51)
[2017-12-21] MEDS: Sodium Chloride 0.9% 1000 ML 1,000 ML IV SCH (09:32)
[2017-12-21] MEDS: ECOTRIN 81 MG PO SCH (09:33)
[2017-12-21] MEDS: Flomax 0.4 MG PO SCH (09:33)
[2017-12-21] MEDS: Lopressor 25MG Tab PO SCH ×2 (09:33→21:22)
[2017-12-21] MEDS: NON-FORMULARY ITEM (Sodium Bicarbonate [Sodium Bicarbonate] 0 MG) PO SCH ×2 (09:34→21:22)
[2017-12-21] MEDS: Lantus Insulin SQ SCH (09:34)
[2017-12-21] MEDS: Megace 40 MG/ML PO SCH (09:35)
[2017-12-21] MEDS: CASODEX PO SCH (09:37)
[2017-12-21] MEDS ORDERED: Aplisol ID SCH (10:00)
[2017-12-21] MEDS: NovoLOG Insulin SQ PRN ×3 (11:50→21:21)
[2017-12-21] MEDS ORDERED: Pepcid 20 MG PO PRN (12:16)
--- NOTE | 2017-12-21 12:16 | PCM.NOTE ---
Date and Time: 12/21/17 1212 Subjective Assessment: Pt was very uncomfortable last night with "heartburn," he indicates pain in lower mid abdomen. Was relieved by TUMs this morning. He is a poor historian. - Review of Systems Constitutional: No Fever Abdominal/Gastrointestinal: Abdominal Pain Objective Exam General Appearance: no apparent distress, alert Neurologic Exam: oriented x 3, cooperative, other (grumpy) Skin Exam: normal color, warm, dry, No rash Respiratory Exam: lungs clear, diminished breath sounds, No crackles/rales, No rhonchi, No wheezing Cardiovascular Exam: regular rate/rhythm, normal heart sounds, No murmur Gastrointestinal/Abdomen Exam: soft, normal bowel sounds, No tenderness, No distention OBJECTIVE DATA Vital Signs: Vital Signs - 24 hr Temp Pulse Resp BP Pulse Ox 12/21/17 11:59 164/66 12/21/17 07:31 98.8 F 80 18 184/81 94 L 12/21/17 07:15 95 12/20/17 20:00 98.6 F 84 19 132/63 94 L 12/20/17 19:05 85 18 94 L Oxygen-Last 24 hours O2 Percentage 2 Liters = 28% O2 Percentage 2 Liters = 28% Pain Assessment - Last Documented Pain Intensity 0 Pain Scale Used 0-10 Pain Scale Intake and Output: Intake & Output 12/19/17 12/20/17 12/21/17 12/22/17 11:59 11:59 11:59 11:59 Intake Total 3001 Output Total 1200 Balance 1801 Weight 67.1 kg Lab Results: Accuchecks Date 12/21/17 Date 12/21/17 Date 12/20/17 Date 12/20/17 Time 11:30 Time 07:30 Time 21:00 Time 16:30 Accucheck Value: 233 Accucheck Value: 179 Accucheck Value: 209 Accucheck Value: 419 Assessment/Plan (1) GERD (gastroesophageal reflux disease) Current Visit: Yes Status: Acute Qualifiers: Esophagitis presence: esophagitis presence not specified Qualified Code(s) : K21.9 - Gastro-esophageal reflux disease without esophagitis Assessment & Plan: WIll give pt zantac as well prn. Pt very upset about having had heartburn all night and the doctor not being called for orders. Code(s): K21.9 - GASTRO-ESOPHAGEAL REFLUX DISEASE WITHOUT ESOPHAGITIS (2) Muscular deconditioning Current Visit: Yes Status: Acute Assessment & Plan: Swing bed for therapy. Code(s): R29.898 - OTH SYMPTOMS AND SIGNS INVOLVING THE MUSCULOSKELETAL SYSTEM (3) UTI (urinary tract infection) Current Visit: No Status: Acute Onset Date: ~12/18/17 Qualifiers: Urinary tract infection type: site unspecified Assessment & Plan: on meropenem. Code(s): N39.0 - URINARY TRACT INFECTION, SITE NOT SPECIFIED
[2017-12-21] MEDS: ENOXAPARIN SODIUM SQ SCH (14:46)
[2017-12-21] MEDS: ZOCOR 20MG PO SCH (21:22)
[2017-12-22] MEDS: MERREM 500MG 500 MG in Sodium Chloride 100ML MINI-BAG PLUS 100 ML IV SCH ×3 (05:26→21:16)
[2017-12-22] MEDS: Sodium Chloride 0.9% 1000 ML 1,000 ML IV SCH (05:26)
[2017-12-22] MEDS: PATIENT OWN MEDICATION PO SCH ×3 (08:33→15:41)
[2017-12-22] MEDS: ENOXAPARIN SODIUM SQ SCH (09:34)
[2017-12-22] MEDS: Lantus Insulin SQ SCH (09:35)
[2017-12-22] MEDS: Flomax 0.4 MG PO SCH (09:35)
[2017-12-22] MEDS: Lopressor 25MG Tab PO SCH ×2 (09:35→21:15)
[2017-12-22] MEDS: CASODEX PO SCH (09:35)
[2017-12-22] MEDS: ECOTRIN 81 MG PO SCH (09:35)
[2017-12-22] MEDS: NON-FORMULARY ITEM (Sodium Bicarbonate [Sodium Bicarbonate] 0 MG) PO SCH ×2 (09:36→21:15)
[2017-12-22] MEDS: Megace 40 MG/ML PO SCH (09:36)
[2017-12-22] MEDS: NovoLOG Insulin SQ PRN ×3 (12:20→21:16)
[2017-12-22] MEDS: xanAX 0.25 MG PO PRN (21:15)
[2017-12-22] MEDS: ZOCOR 20MG PO SCH (21:15)
[2017-12-23] MEDS: Sodium Chloride 0.9% 1000 ML 1,000 ML IV SCH (03:08)
[2017-12-23] MEDS: MERREM 500MG 500 MG in Sodium Chloride 100ML MINI-BAG PLUS 100 ML IV SCH ×3 (06:16→21:40)
[2017-12-23] MEDS: NovoLOG Insulin SQ PRN ×4 (07:45→21:41)
--- NOTE | 2017-12-23 08:10 | PCM.NOTE ---
Date and Time: 12/23/17 0809 Subjective Assessment: doing well, having some trouble getting up out of bed but states once he is up he is able to ambulate well. no new problems Objective Exam General Appearance: no apparent distress, thin Skin Exam: normal color, warm, dry Respiratory Exam: normal breath sounds, lungs clear, No respiratory distress Cardiovascular Exam: regular rate/rhythm, normal heart sounds Gastrointestinal/Abdomen Exam: soft, No tenderness, No mass Extremity Exam: normal inspection, normal range of motion OBJECTIVE DATA Vital Signs: Vital Signs - 24 hr Temp Pulse Resp BP Pulse Ox 12/23/17 06:55 98.4 F 78 18 181/77 96 12/22/17 19:26 98.2 F 79 20 151/63 97 12/22/17 19:22 92 L 12/22/17 08:45 99 Oxygen-Last 24 hours O2 Percentage 2 Liters = 28% O2 Percentage 2 Liters = 28% Pain Assessment - Last Documented Pain Intensity 0 Pain Scale Used 0-10 Pain Scale Intake and Output: Intake & Output 12/20/17 12/21/17 12/22/17 12/23/17 11:59 11:59 11:59 11:59 Intake Total 3001 3073 2140 Output Total 1200 1425 1750 Balance 1801 1648 390 Weight 67.1 kg Lab Results: Accuchecks Date 12/22/17 Date 12/22/17 Time 17:55 Time 11:30 Accucheck Value: 184 Accucheck Value: 1,733 Accucheck Value: 301 Multi-Disciplinary Progress Notes: Multi-Disciplinary Progress Notes 12/22/17 11:00 (created 12/22/17 11:07) Case Management Note by Mary Blackman REVIEWED DISCHARGE PLAN, NO NEW NEEDS IDENTIFIED AT PRESENT. PLANNING TO RETURN HOME WITH FOLLOWING REHAB STAY. WILL CONTINUE TO FOLLOW FOR ALL DC NEEDS. Initialized on 12/22/17 11:07 - END OF NOTE Assessment/Plan (1) Muscular deconditioning Current Visit: Yes Status: Acute Code(s): R29.898 - OTH SYMPTOMS AND SIGNS INVOLVING THE MUSCULOSKELETAL SYSTEM (2) Acute on chronic kidney failure Current Visit: No Status: Acute Onset Date: ~12/18/17 Code(s): N17.9 - ACUTE KIDNEY FAILURE, UNSPECIFIED; N18.9 - CHRONIC KIDNEY DISEASE, UNSPECIFIED (3) Dehydration Current Visit: No Status: Acute Onset Date: ~12/18/17 Code(s): E86.0 - DEHYDRATION (4) Failure of outpatient treatment Current Visit: No Status: Acute Onset Date: ~12/18/17 Code(s): Z78.9 - OTHER SPECIFIED HEALTH STATUS (5) UTI (urinary tract infection) Current Visit: No Status: Acute Onset Date: ~12/18/17 Qualifiers: Urinary tract infection type: site unspecified Code(s): N39.0 - URINARY TRACT INFECTION, SITE NOT SPECIFIED
[2017-12-23] MEDS: PATIENT OWN MEDICATION PO SCH ×3 (09:37→16:59)
[2017-12-23] MEDS: ENOXAPARIN SODIUM SQ SCH (09:38)
[2017-12-23] MEDS: CASODEX PO SCH (09:38)
[2017-12-23] MEDS: ECOTRIN 81 MG PO SCH (09:38)
[2017-12-23] MEDS: Lopressor 25MG Tab PO SCH ×2 (09:38→21:40)
[2017-12-23] MEDS: Flomax 0.4 MG PO SCH (09:38)
[2017-12-23] MEDS: Megace 40 MG/ML PO SCH (09:39)
[2017-12-23] MEDS: NON-FORMULARY ITEM (Sodium Bicarbonate [Sodium Bicarbonate] 0 MG) PO SCH ×2 (09:39→21:41)
[2017-12-23] MEDS: Lantus Insulin SQ SCH (09:45)
[2017-12-23] MEDS: xanAX 0.25 MG PO PRN (21:39)
[2017-12-23] MEDS: ZOCOR 20MG PO SCH (21:40)
[2017-12-24] MEDS: Sodium Chloride 0.9% 1000 ML 1,000 ML IV SCH (00:51)
[2017-12-24 05:23] LABS: BASOPHIL % 0.4 % (0.0-0.4); Basophil (Absolute #) 0.04 (0-0.4); Eosinophil (Absolute #) 0.28 (0-0.5); Granulocyte Absolute (ANC) 6.31 (1.4-6.9); Granulocytes % 67.3 % (36.0-66.0); Hematocrit 27.9 % (42-50); Lymphocyte (Absolute #) 2.08 (1.0-4.6); Lymphocytes % 22.2 % (24.0-44.0); Mean Cell Volume 98.6 fl (78-100); Mean Corpuscular Hgb Concent. 28.7 g/dl (32-36); Mean Platelet Volume 9.1 fl (6-9.5); Monocyte (Absolute #) 0.67 (0.0-1.3); Monocytes % 7.1 % (0.0-12.0); Platelet Count 298 K/mm3 (150-450); Red Blood Count 2.83 M/mm3 (4.1-5.6); Red Cell Distribution Width 17.2 % (11.5-14.0); White Blood Count 9.4 K/mm3 (4.0-10.5)
[2017-12-24 05:25] LABS: Mean Corpuscular Hemoglobin 28.2 pg (26-32)
[2017-12-24 05:40] LABS: ANION GAP 9.6 MEQ/L (5-15); BLOOD UREA NITROGEN 31 mg/dL (9-20); CHLORIDE 112 mmol/L (98-107); Calcium 8.4 mg/dL (8.4-10.2); Carbon Dioxide 26 mmol/L (22-30); Glucose 175 mg/dL (74-106); Potassium 5.8 mmol/L (3.5-5.1); SODIUM 142 mmol/L (137-145)
[2017-12-24] MEDS: MERREM 500MG 500 MG in Sodium Chloride 100ML MINI-BAG PLUS 100 ML IV SCH ×3 (06:14→21:11)
[2017-12-24 07:05] LABS: Slide Review 1 YES
[2017-12-24] MEDS: PATIENT OWN MEDICATION PO SCH ×3 (07:45→16:54)
[2017-12-24] MEDS: Lopressor 25MG Tab PO SCH ×2 (10:41→21:09)
[2017-12-24] MEDS: Flomax 0.4 MG PO SCH (10:41)
[2017-12-24] MEDS: ENOXAPARIN SODIUM SQ SCH (10:41)
[2017-12-24] MEDS: CASODEX PO SCH (10:41)
[2017-12-24] MEDS: ECOTRIN 81 MG PO SCH (10:41)
[2017-12-24] MEDS: Megace 40 MG/ML PO SCH (10:42)
[2017-12-24] MEDS: Lantus Insulin SQ SCH (10:42)
[2017-12-24] MEDS: NON-FORMULARY ITEM (Sodium Bicarbonate [Sodium Bicarbonate] 0 MG) PO SCH ×2 (10:42→21:09)
[2017-12-24] MEDS: NovoLOG Insulin SQ PRN ×3 (11:59→21:07)
[2017-12-24] MEDS: ZOCOR 20MG PO SCH (21:09)
[2017-12-24] MEDS: xanAX 0.25 MG PO PRN (21:20)
[2017-12-25] MEDS: MERREM 500MG 500 MG in Sodium Chloride 100ML MINI-BAG PLUS 100 ML IV SCH ×2 (06:01→14:43)
[2017-12-25 07:09] VITALS: BP 139/65; PULSE 79; O2SAT 97
[2017-12-25] MEDS: PATIENT OWN MEDICATION PO SCH ×2 (08:06→11:39)
[2017-12-25] MEDS: NovoLOG Insulin SQ PRN ×2 (08:08→11:53)
[2017-12-25] MEDS: ENOXAPARIN SODIUM SQ SCH (09:17)
[2017-12-25] MEDS: Flomax 0.4 MG PO SCH (09:18)
[2017-12-25] MEDS: ECOTRIN 81 MG PO SCH (09:18)
[2017-12-25] MEDS: Lopressor 25MG Tab PO SCH (09:18)
[2017-12-25] MEDS: NON-FORMULARY ITEM (Sodium Bicarbonate [Sodium Bicarbonate] 0 MG) PO SCH (09:18)
[2017-12-25] MEDS: Megace 40 MG/ML PO SCH (09:19)
[2017-12-25] MEDS: CASODEX PO SCH (09:19)
[2017-12-25] MEDS: Lantus Insulin SQ SCH (09:19)
--- NOTE | 2017-12-25 12:11 | PCM.DS ---
Discharge Summary Date of Admission: 12/20/17 09:44 Admitting Physician: CARLOS ALEJANDRE Primary Care Provider: CARLOS ALEJANDRE Allergies Allergies No Known Drug Allergies Allergy (Verified 12/18/17 14:17) Hospital Summary - Hospital Course Hospital Course: patient was admitted with weakness, acute on chronic renal failure and recurrent UTI. was in swing bed for IV meropenem and therapy. he is functioning better at this time. tolerating po intake, he is better able to ambulate and stand from sitting. he agrees to outpatient therapy with home health on discharge. - Vitals & Intake/Output Vital Signs: Vital Signs Temperature 98.0 F 12/25/17 07:08 Pulse Rate 79 12/25/17 07:08 Respiratory Rate 18 12/25/17 07:08 Blood Pressure 139/65 12/25/17 07:08 O2 Sat by Pulse Oximetry 97 12/25/17 07:08 Oxygen-Last Documented O2 Percentage 2 Liters = 28% Intake & Output: Intake & Output 12/23/17 12/24/17 12/25/17 12/26/17 11:59 11:59 11:59 11:59 Intake Total 2380 2580 1691 Output Total 2072 590 7900 320 Balance 630 1845 541 -320 Weight 67.1 kg - Lab Result Diagrams: 12/24/17 05:21 12/24/17 05:21 Lab Results-Last 24 Hrs: Accuchecks Date 12/25/17 Date 12/25/17 Date 12/24/17 Date 12/24/17 Time 11:30 Time 07:30 Time 21:00 Time 16:15 Accucheck Value: 319 Accucheck Value: 154 Accucheck Value: 237 Accucheck Value: 365 Micro Results-Entire Visit: Accuchecks Date 12/25/17 Date 12/25/17 Date 12/24/17 Date 12/24/17 Time 11:30 Time 07:30 Time 21:00 Time 16:15 Accucheck Value: 319 Accucheck Value: 154 Accucheck Value: 237 Accucheck Value: 365 - Procedures and Test Procedures and Tests throughout Hospitalization: Therapy Orders & Screens 12/20/17 09:44 PT Eval & Treat ( Order) ROUTINE Reason for Eval:: swingbed status Diagnosis: Deconditioning r/t UTI 12/20/17 10:25 Oxygen NASAL CANNULA 2 lpm Comment: prn Diagnosis: Deconditioning r/t UTI Discharge Exam General Appearance: no apparent distress, thin Skin Exam: normal color, warm, dry Respiratory Exam: normal breath sounds, lungs clear, No respiratory distress Cardiovascular Exam: regular rate/rhythm, normal heart sounds Gastrointestinal/Abdomen Exam: soft, No tenderness, No mass Extremity Exam: normal inspection, normal range of motion Final Diagnosis/Problem List - Final Discharge Diagnosis/Problem (1) Muscular deconditioning Current Visit: Yes Status: Acute (2) Acute on chronic kidney failure Current Visit: No Status: Acute Onset Date: ~12/18/17 (3) Dehydration Current Visit: No Status: Acute Onset Date: ~12/18/17 (4) Failure of outpatient treatment Current Visit: No Status: Acute Onset Date: ~12/18/17 (5) UTI (urinary tract infection) Current Visit: No Status: Acute Onset Date: ~12/18/17 - Discharge Disposition: Home, Self-Care Condition: Stable Prescriptions: Continue Tamsulosin HCl 0.4 mg [Flomax 0.4 MG] 0.8 mg PO DAILY Bicalutamide [Casodex] 50 mg PO DAILY Metoprolol Tartrate 50 mg [Lopressor 50 MG] 25 mg PO BID Lipase/Protease/Amylase [Misty Pierson 24,000 Units Capsule] 1 - 2 tab PO AC Insulin Glargine,Hum.rec.anlog [Lantus] 10 unit SQ DAILY Simvastatin [Zocor] 40 mg PO HS Alprazolam 0.25 mg [xanAX 0.25 MG] 0.25 mg PO Q6HPRN PRN PRN Reason: Anxiety Nitroglycerin 0.4 mg Tablet [Nitrostat 0.4 MG Tablet] 0.4 mg SL Q5MIN PRN MR X 3 PRN #25 bottle PRN Reason: Chest Pain Hydrocodone/Acetaminophen [Hydrocodon-Acetaminophen 5-325] 1 tab PO Q4H PRN PRN PRN Reason: Pain Megestrol Acetate 40 mg/ml [Megace 40 MG/ML] 20 ml PO DAILY Glipizide [Glucotrol] 5 mg PO 1700 Aspirin EC 81 mg [Ecotrin 81 mg] 162 mg PO DAILY Ondansetron ODT 4 MG [Zofran Odt 4 mg] 4 mg PO Q8H PRN PRN PRN Reason: Nausea glipiZIDE [Glipizide] 2.5 mg PO LUNCH Budesonide/Formoterol Fumarate [Symbicort 160-4.5 Mcg Inhaler] 2 puff IH DAILY Sodium Bicarbonate 650 mg PO BID Discontinued Trimethoprim 100 mg PO DAILY Follow up with: CARLOS ALEJANDRE MD [Primary Care Provider] - 1 Week
[2017-12-25] MEDS ORDERED: Sodium Chloride 0.9% 10 ML FLUSH Syringe IV SCH (14:00)
[2018-01-01] MEDS ORDERED: Aplisol ID SCH (10:00)
== END 2017-12-25 15:30 | disposition home health service (06) | DRG 683 ==
LOC: MED SURG 09:44
PROVIDERS: ADMIT Family Medicine; ATTEND Family Medicine
DX: N17.9 Acute kidney failure, unspecified (principal); N39.0 Urinary tract infection, site not specified; I25.810 Atherosclerosis of coronary artery bypass graft(s) without angina pectoris; I12.9 Hypertensive chronic kidney disease with stage 1 through stage 4 chronic kidney disease, or unspecified chronic kidney disease; N18.9 Chronic kidney disease, unspecified; E86.0 Dehydration; I50.9 Heart failure, unspecified; E11.9 Type 2 diabetes mellitus without complications; Z79.4 Long term (current) use of insulin; Z79.899 Other long term (current) drug therapy; Z87.891 Personal history of nicotine dependence; K21.9 Gastro-esophageal reflux disease without esophagitis
CPT/HCPCS: 36415; 80048; 84153; 85025; 94760; J1650; 97110-GP; A9270-GY

== ENCOUNTER 2018-03-12 12:11 | Observation (INO) | payer MEDICARE, OTHER ==
[2018-03-12] MEDS ORDERED: NORCO 5/325 MG PO PRN (13:29)
[2018-03-12] MEDS ORDERED: xanAX 0.25 MG PO PRN (13:31)
--- NOTE | 2018-03-12 13:38 | XRAY ---
Exam: AP upright portable chest film from 03/12/2018. Comparison: AP upright portable chest film from 09/11/2017. Indication: Weakness, dehydration. Findings: The lungs appear mildly hyperinflated. There is minimal elevation of left hemidiaphragm. The transverse heart size is normal. Atherosclerotic calcification is seen within the aortic knob. There is evidence of prior CABG with midline sternotomy. The remainder of the kate and mediastinal structures appears unremarkable. Minimal, vertically oriented linear scarring is seen at the medial right lung base representing no change. I believe there is also some minimal stable linear scarring overlying the right hilum and right mid to upper lung field representing no change. No air space infiltrates, vascular congestion, pneumothorax, or pleural fluid is seen. An old fracture deformity of the middle third of the left clavicle is again seen. I believe there are also subtle chronic fracture deformities of the posterior left fourth and fifth ribs representing no change. No acute osseous process is seen. Abundant air is seen within the gastric lumen at the inferior margin of the film. This may be due to air swallowing. Correlate clinically. Impression: 1. Mildly hyperinflated chest with minimal scattered stable linear scarring on the right. 2. I see no acute cardiopulmonary disease. 3. Status post CABG, no change. 4. Prominent stomach air bubble at the inferior margin of the film. Correlate clinically.
[2018-03-12] MEDS: Sodium Chloride 0.9% 1000 ML 1,000 ML IV SCH ×2 (13:52→23:14)
[2018-03-12] MEDS ORDERED: Diflucan 100 MG PO SCH ×2 (14:00→22:00)
[2018-03-12 14:23] LABS: Granulocyte Absolute (ANC) 8.86 (1.4-6.9); Hemoglobin 8.8 gm/dl (12.5-18.0); Mean Cell Volume 86.1 fl (78-100); Mean Corpuscular Hemoglobin 26.1 pg (26-32); Mean Corpuscular Hgb Concent. 30.3 g/dl (32-36); Mean Platelet Volume 9.9 fl (6-9.5); Platelet Count 101 K/mm3 (150-450); Red Blood Count 3.37 M/mm3 (4.1-5.6); Red Cell Distribution Width 18.9 % (11.5-14.0); White Blood Count 12.4 K/mm3 (4.0-10.5)
[2018-03-12 14:35] LABS: ALBUMIN 3.6 g/dL (3.5-5.0); ANION GAP 17.6 MEQ/L (5-15); BILIRUBIN,TOTAL 0.2 mg/dL (0.2-1.3); Calcium 9.7 mg/dL (8.4-10.2); Creatinine 1 1.62 mg/dL (0.66-1.25); Total Protein 7.1 g/dL (6.3-8.2)
[2018-03-12] MEDS ORDERED: Nitrostat 0.4 MG Tablet SL PRN (15:10)
[2018-03-12] MEDS ORDERED: NON-FORMULARY ITEM (Budesonide/Formoterol Fumarate [Symbicort 160-4.5 Mcg Inhaler] 2 PUFF) IH PRN (15:10)
[2018-03-12] MEDS ORDERED: ZOFRAN ODT 4 MG PO PRN (15:10)
[2018-03-12] MEDS ORDERED: MEDICATION INTERVENTION PO SCH (15:30)
[2018-03-12 16:29] LABS: BAND 5 % (0.0-2.0); Lymphocytes 20 % (24-44); Monocyte 3 % (0.0-12.0); Neutrophils 72 % (36.-66.); Total Cells Counted 100
[2018-03-12 16:30] LABS: Platelet Estimate DECREASED (NORMAL)
[2018-03-12] MEDS: PATIENT OWN MEDICATION PO SCH (17:12)
[2018-03-12] MEDS: NovoLOG Insulin SQ PRN (17:12)
[2018-03-12] MEDS ORDERED: Lopressor 50 MG PO SCH (22:00)
[2018-03-12] MEDS ORDERED: NON-FORMULARY ITEM (Sodium Bicarbonate 650 MG) PO SCH (22:00)
[2018-03-12] MEDS: ZOCOR 20MG PO SCH (22:45)
[2018-03-12] MEDS: Lopressor 25MG Tab PO SCH (22:45)
[2018-03-12] MEDS: NON-FORMULARY ITEM PO SCH (22:46)
[2018-03-13 02:39] LABS: Appearance CLOUDY (CLEAR); Bilirubin NEGATIVE (NEGATIVE); Blood 250 Ery/ul (0-5); Glucose NEGATIVE (NEGATIVE); Ketones NEGATIVE (NEGATIVE); Leukocyte Esterase 2+ (NEGATIVE); Nitrite NEGATIVE (NEGATIVE); Protein,Urine Dip 30 (Negative); Urobilinogen NORMAL mg/dL (0-1)
[2018-03-13 02:40] LABS: Bacteria FEW /HPF (NEGATIVE); Epithelial Cells RARE /HPF (FEW); RBC >100 /HPF (0-2); WBC 25-50 /HPF (0-5)
[2018-03-13 06:41] LABS: Hematocrit 27.8 % (42-50); Hemoglobin 8.6 gm/dl (12.5-18.0); Mean Cell Volume 85.5 fl (78-100); Mean Corpuscular Hgb Concent. 30.9 g/dl (32-36); Mean Platelet Volume 10.2 fl (6-9.5); Platelet Count 97 K/mm3 (150-450); Red Blood Count 3.25 M/mm3 (4.1-5.6); Red Cell Distribution Width 19.2 % (11.5-14.0); White Blood Count 16.8 K/mm3 (4.0-10.5)
[2018-03-13 06:45] LABS: ANION GAP 14.5 MEQ/L (5-15); Calcium 9.4 mg/dL (8.4-10.2); Creatinine 1 1.29 mg/dL (0.66-1.25); Potassium 4.7 mmol/L (3.5-5.1)
[2018-03-13 06:55] LABS: Mean Corpuscular Hemoglobin 26.4 pg (26-32)
[2018-03-13] MEDS: PATIENT OWN MEDICATION PO SCH ×3 (07:39→17:28)
[2018-03-13] MEDS: Diflucan 100 MG PO SCH (08:59)
[2018-03-13] MEDS: Flomax 0.4 MG PO SCH (08:59)
[2018-03-13] MEDS: NON-FORMULARY ITEM PO SCH ×2 (09:00→22:18)
[2018-03-13] MEDS: ECOTRIN 81 MG PO SCH (09:00)
[2018-03-13] MEDS: Megace 40 MG/ML PO SCH (09:00)
[2018-03-13] MEDS: Lopressor 25MG Tab PO SCH ×2 (09:00→22:18)
--- NOTE | 2018-03-13 09:16 | PCM.NOTE ---
Date and Time: 03/13/18912 Subjective Assessment: patient reports he is feeling better today, ate breakfast this morning and had a bowel movement. c/o chest pain with ambulation persistently over the last few weeks. Objective Exam General Appearance: no apparent distress, thin Neurologic Exam: alert Skin Exam: normal color, warm, dry Respiratory Exam: normal breath sounds, lungs clear, No respiratory distress Cardiovascular Exam: regular rate/rhythm, normal heart sounds, normal peripheral pulses Gastrointestinal/Abdomen Exam: soft, No tenderness, No mass Extremity Exam: normal inspection, normal range of motion OBJECTIVE DATA Vital Signs: Vital Signs - 24 hr Temp Pulse Resp BP Pulse Ox 03/13/18 07:49 98.4 F 83 18 145/64 99 03/13/18 04:25 98.5 F 75 18 149/70 96 03/13/18 00:29 98.9 F 88 16 152/70 98 03/12/18 19:39 98.2 F 82 18 141/60 99 03/12/18 19:10 85 16 97 03/12/18 16:00 98.5 F 80 18 151/64 96 03/12/18 12:41 97.9 F 86 18 149/66 92 L 03/12/18 12:31 97.9 F 86 18 149/66 92 L 03/12/18 12:27 97.9 F 86 18 149/66 92 L Oxygen-Last 24 hours O2 Percentage 2 Liters = 28% O2 Percentage 2 Liters = 28% O2 Percentage 2 Liters = 28% O2 Percentage 2 Liters = 28% O2 Percentage 2 Liters = 28% O2 Percentage 2 Liters = 28% O2 Percentage 2 Liters = 28% Pain Assessment - Last Documented Pain Intensity 0 Pain Scale Used 0-10 Pain Scale Intake and Output: Intake & Output 03/10/18 03/11/18 03/12/18 03/13/18 11:59 11:59 11:59 11:59 Intake Total 2865 Output Total 300 Balance 2565 Weight 64 kg Lab Results: Accuchecks Date 03/13/18 Date 03/12/18 Date 03/12/18 Time 07:30 Time 22:00 Time 16:30 Accucheck Value: 72 Accucheck Value: 167 Accucheck Value: 233 Lab Results-Last 24 Hours 03/12/18 03/12/18 03/13/18 Range/Units 12:30 13:30 02:08 WBC 12.4 H (4.0-10.5) K/mm3 RBC 3.37 L (4.1-5.6) M/mm3 Hgb 8.8 L (12.5-18.0) gm/dl Hct 29.0 L (42-50) % MCV 86.1 (78-100) fl MCH 26.1 (26-32) pg MCHC 30.3 L (32-36) g/dl RDW 18.9 H (11.5-14.0) % Plt Count 101 L (150-450) K/mm3 MPV 9.9 H (6-9.5) fl Absolute Granulocytes 8.86 H (1.4-6.9) Segmented Neutrophils 72 H (36.-66.) % Band Neutrophils 5 H (0.0-2.0) % Lymphocytes (Manual) 20 L (24-44) % Monocytes (Manual) 3 (0.0-12.0) % Platelet Estimate DECREASED (NORMAL) RBC Morphology NORMAL Sodium 140 (137-145) mmol/L Potassium 5.0 (3.5-5.1) mmol/L Chloride 106 (98-107) mmol/L Carbon Dioxide 22 (22-30) mmol/L Anion Gap 17.6 H (5-15) MEQ/L BUN 70 H (9-20) mg/dL Creatinine 1.62 H (0.66-1.25) mg/dL Estimated GFR 43.5 ML/MIN Glucose 272 H (74-106) mg/dL Calcium 9.7 (8.4-10.2) mg/dL Magnesium 2.0 (1.6-2.3) mg/dL Total Bilirubin 0.20 (0.2-1.3) mg/dL AST 39 (17-59) U/L ALT 38 (0-50) U/L Alkaline Phosphatase 491 H (38-126) U/L Serum Total Protein 7.1 (6.3-8.2) g/dL Albumin 3.6 (3.5-5.0) g/dL Ur Collection Type VOID Urine Color YELLOW (YELLOW) Urine Appearance CLOUDY (CLEAR) Urine pH 5.0 (5-6) Ur Specific [place] 1.010 (1.005-1.025) Urine Protein 30 (Negative) Urine Ketones NEGATIVE (NEGATIVE) Urine Blood 250 (0-5) Horace/ul Urine Nitrite NEGATIVE (NEGATIVE) Urine Bilirubin NEGATIVE (NEGATIVE) Urine Urobilinogen NORMAL (0-1) mg/dL Ur Leukocyte Esterase 2+ (NEGATIVE) Urine Microscopic RBC >100 (0-2) /HPF Urine Microscopic WBC 25-50 (0-5) /HPF Ur Epithelial Cells RARE (FEW) /HPF Urine Bacteria FEW (NEGATIVE) /HPF Urine Culture Reflexed YES (NO) Urine Glucose NEGATIVE (NEGATIVE) mg/dL Specimen Received 03/13/18 0200 03/13/18 03/13/18 Range/Units 05:15 05:15 WBC 16.8 H (4.0-10.5) K/mm3 RBC 3.25 L (4.1-5.6) M/mm3 Hgb 8.6 L (12.5-18.0) gm/dl Hct 27.8 L (42-50) % MCV 85.5 (78-100) fl MCH 26.4 (26-32) pg MCHC 30.9 L (32-36) g/dl RDW 19.2 H (11.5-14.0) % Plt Count 97 L (150-450) K/mm3 MPV 10.2 H (6-9.5) fl Absolute Granulocytes (1.4-6.9) Segmented Neutrophils (36.-66.) % Band Neutrophils (0.0-2.0) % Lymphocytes (Manual) (24-44) % Monocytes (Manual) (0.0-12.0) % Platelet Estimate (NORMAL) RBC Morphology Sodium 142 (137-145) mmol/L Potassium 4.7 (3.5-5.1) mmol/L Chloride 112 H (98-107) mmol/L Carbon Dioxide 20 L (22-30) mmol/L Anion Gap 14.5 (5-15) MEQ/L BUN 61 H (9-20) mg/dL Creatinine 1.29 H (0.66-1.25) mg/dL Estimated GFR 56.5 ML/MIN Glucose 66 L (74-106) mg/dL Calcium 9.4 (8.4-10.2) mg/dL Magnesium (1.6-2.3) mg/dL Total Bilirubin (0.2-1.3) mg/dL AST (17-59) U/L ALT (0-50) U/L Alkaline Phosphatase (38-126) U/L Serum Total Protein (6.3-8.2) g/dL Albumin (3.5-5.0) g/dL Ur Collection Type Urine Color (YELLOW) Urine Appearance (CLEAR) Urine pH (5-6) Ur Specific [place] (1.005-1.025) Urine Protein (Negative) Urine Ketones (NEGATIVE) Urine Blood (0-5) Horace/ul Urine Nitrite (NEGATIVE) Urine Bilirubin (NEGATIVE) Urine Urobilinogen (0-1) mg/dL Ur Leukocyte Esterase (NEGATIVE) Urine Microscopic RBC (0-2) /HPF Urine Microscopic WBC (0-5) /HPF Ur Epithelial Cells (FEW) /HPF Urine Bacteria (NEGATIVE) /HPF Urine Culture Reflexed (NO) Urine Glucose (NEGATIVE) mg/dL Specimen Received Radiology Exams: Radiology Procedures Category Date Time Status CHEST 1 VIEW (PORTABLE) Routine Exams 03/12/18 13:00 Completed Assessment/Plan (1) UTI (urinary tract infection) Current Visit: Yes Status: Acute Assessment & Plan: continue diflucan Code(s): N39.0 - URINARY TRACT INFECTION, SITE NOT SPECIFIED (2) Chest pain on exertion Current Visit: Yes Status: Acute Assessment & Plan: patient had echo 08/2017 EF 30-40% with regional wall motion abnormality, hx CABG. likely not a candidate for intervention in my opinion but will consult with Dr Richardson to see if we can improve his symptom management medically Code(s): R07.9 - CHEST PAIN, UNSPECIFIED (3) Dehydration Current Visit: Yes Status: Acute Onset Date: ~03/12/18 Assessment & Plan: improving. Code(s): E86.0 - DEHYDRATION (4) Weakness Current Visit: Yes Status: Acute Onset Date: ~03/12/18 Code(s): R53.1 - WEAKNESS
[2018-03-13] MEDS ORDERED: BICALUTAMIDE 50 MG PO SCH (10:00)
[2018-03-13] MEDS ORDERED: CASODEX PO SCH (10:00)
[2018-03-13] MEDS: Sodium Chloride 0.9% 1000 ML 1,000 ML IV SCH (12:08)
[2018-03-13] MEDS: NovoLOG Insulin SQ PRN ×3 (12:09→22:19)
[2018-03-13 13:32] LABS: Eosinophil 1 % (0.00-3.0); Lymphocytes 31 % (24-44); Monocyte 7 % (0.0-12.0); Neutrophils 61 % (36.-66.); Total Cells Counted 100
[2018-03-13 13:33] LABS: Platelet Estimate NORMAL (NORMAL)
[2018-03-13] MEDS: ZOCOR 20MG PO SCH (22:18)
[2018-03-13] MEDS: NORCO 5/325 MG PO PRN (22:21)
[2018-03-14] MEDS: Sodium Chloride 0.9% 1000 ML 1,000 ML IV SCH (02:14)
[2018-03-14] MEDS: NORCO 5/325 MG PO PRN (04:33)
[2018-03-14 06:02] LABS: Granulocyte Absolute (ANC) 11.79 (1.4-6.9); Hematocrit 29.2 % (42-50); Mean Cell Volume 86.6 fl (78-100); Mean Corpuscular Hemoglobin 26.7 pg (26-32); Mean Corpuscular Hgb Concent. 30.8 g/dl (32-36); Mean Platelet Volume 10.2 fl (6-9.5); Platelet Count 97 K/mm3 (150-450); Red Blood Count 3.37 M/mm3 (4.1-5.6); Red Cell Distribution Width 19.3 % (11.5-14.0); White Blood Count 15.6 K/mm3 (4.0-10.5)
[2018-03-14 06:30] LABS: ANISOCYTOSIS 1+; BAND 2 % (0.0-2.0); Hypochromia 1+; Lymphocytes 18 % (24-44); Monocyte 4 % (0.0-12.0); Neutrophils 76 % (36.-66.); Platelet Estimate NORMAL (NORMAL); Poikilocytosis 1+; Total Cells Counted 100
[2018-03-14 06:32] LABS: ALBUMIN 3.6 g/dL (3.5-5.0); ANION GAP 17.6 MEQ/L (5-15); BILIRUBIN,TOTAL 0.2 mg/dL (0.2-1.3); Calcium 9.2 mg/dL (8.4-10.2); Creatinine 1 1.23 mg/dL (0.66-1.25); Potassium 4.9 mmol/L (3.5-5.1); Total Protein 6.9 g/dL (6.3-8.2)
[2018-03-14 06:53] LABS: TROPONIN 0.898 ng/mL (0.000-0.034)
[2018-03-14 07:25] VITALS: BP 142/80; PULSE 76
[2018-03-14 07:28] VITALS: O2SAT 98
[2018-03-14] MEDS: PATIENT OWN MEDICATION PO SCH (08:28)
--- NOTE | 2018-03-14 08:40 | PCM.DS ---
Discharge Summary Date of Admission: 03/12/18 12:11 Admitting Physician: CARLOS ALEJANDRE Consults: Consults on Case 03/13/18 09:13 Consult Cardiology ROUTINE Primary Care Provider: CARLOS ALEJANDRE Allergies Allergies No Known Drug Allergies Allergy (Verified 02/25/18 14:28) Hospital Summary - Hospital Course Hospital Course: patient was admitted with weakness and dehydration, has improved with hydration and is ambulatory. 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 has elected not to have definitive biopsy but to treat with oral chemo. he has a cardiomyopathy with hx of cabg and LA. Dr Richardson has seen him, he is no longer having chest pain. troponin has been elevated but Mike is not a candidate for aggressive intervention, he wishes to go home and focus on comfort measures and quality which I think is the best option. he has agreed to SCO code status and will return home today. - Vitals & Intake/Output Vital Signs: Vital Signs Temperature 98 F 03/14/18 07:24 Pulse Rate 76 03/14/18 07:24 Respiratory Rate 20 03/14/18 07:24 Blood Pressure 142/80 03/14/18 07:24 O2 Sat by Pulse Oximetry 98 03/14/18 07:26 Oxygen-Last Documented O2 Percentage 2 Liters = 28% Intake & Output: Intake & Output 03/11/18 03/12/18 03/13/18 03/14/18 11:59 11:59 11:59 11:59 Intake Total 3105 2807 Output Total 300 1695 Balance 2805 1112 Weight 64 kg - Lab Result Diagrams: 03/14/18 05:35 03/14/18 05:35 Lab Results-Last 24 Hrs: Accuchecks Date 03/13/18 Date 03/13/18 Date 03/13/18 Time 22:00 Time 16:30 Time 11:30 Accucheck Value: 126 Accucheck Value: 299 Accucheck Value: 248 Accucheck Value: 324 Lab Results-Last 24 Hours 03/13/18 03/13/18 03/13/18 Range/Units 05:15 05:15 17:17 WBC (4.0-10.5) K/mm3 RBC (4.1-5.6) M/mm3 Hgb (12.5-18.0) gm/dl Hct (42-50) % MCV (78-100) fl MCH (26-32) pg MCHC (32-36) g/dl RDW (11.5-14.0) % Plt Count (150-450) K/mm3 MPV (6-9.5) fl Absolute Granulocytes (1.4-6.9) Segmented Neutrophils 61 (36.-66.) % Band Neutrophils (0.0-2.0) % Lymphocytes (Manual) 31 (24-44) % Monocytes (Manual) 7 (0.0-12.0) % Eosinophils (Manual) 1 (0.00-3.0) % Hypochromia Platelet Estimate NORMAL (NORMAL) RBC Morphology NORMAL Poikilocytosis Anisocytosis Sodium (137-145) mmol/L Potassium (3.5-5.1) mmol/L Chloride (98-107) mmol/L Carbon Dioxide (22-30) mmol/L Anion Gap (5-15) MEQ/L BUN (9-20) mg/dL Creatinine (0.66-1.25) mg/dL Estimated GFR ML/MIN Glucose (74-106) mg/dL Hemoglobin A1c 8.38 H (4.5-6.0) % Calcium (8.4-10.2) mg/dL Total Bilirubin (0.2-1.3) mg/dL AST (17-59) U/L ALT (0-50) U/L Alkaline Phosphatase (38-126) U/L Troponin I 1.060 H* (0.000-0.034) ng/mL Serum Total Protein (6.3-8.2) g/dL Albumin (3.5-5.0) g/dL 03/13/18 03/14/18 03/14/18 Range/Units 23:30 05:35 05:35 WBC 15.6 H (4.0-10.5) K/mm3 RBC 3.37 L (4.1-5.6) M/mm3 Hgb 9.0 L (12.5-18.0) gm/dl Hct 29.2 L (42-50) % MCV 86.6 (78-100) fl MCH 26.7 (26-32) pg MCHC 30.8 L (32-36) g/dl RDW 19.3 H (11.5-14.0) % Plt Count 97 L (150-450) K/mm3 MPV 10.2 H (6-9.5) fl Absolute Granulocytes 11.79 H (1.4-6.9) Segmented Neutrophils 76 H (36.-66.) % Band Neutrophils 2 (0.0-2.0) % Lymphocytes (Manual) 18 L (24-44) % Monocytes (Manual) 4 (0.0-12.0) % Eosinophils (Manual) (0.00-3.0) % Hypochromia 1+ Platelet Estimate NORMAL (NORMAL) RBC Morphology ABNORMAL Poikilocytosis 1+ Anisocytosis 1+ Sodium 145 (137-145) mmol/L Potassium 4.9 (3.5-5.1) mmol/L Chloride 112 H (98-107) mmol/L Carbon Dioxide 20 L (22-30) mmol/L Anion Gap 17.6 H (5-15) MEQ/L BUN 49 H (9-20) mg/dL Creatinine 1.23 (0.66-1.25) mg/dL Estimated GFR 59.7 ML/MIN Glucose 146 H (74-106) mg/dL Hemoglobin A1c (4.5-6.0) % Calcium 9.2 (8.4-10.2) mg/dL Total Bilirubin 0.20 (0.2-1.3) mg/dL AST 36 (17-59) U/L ALT 36 (0-50) U/L Alkaline Phosphatase 520 H (38-126) U/L Troponin I 0.922 H* 0.898 H* (0.000-0.034) ng/mL Serum Total Protein 6.9 (6.3-8.2) g/dL Albumin 3.6 (3.5-5.0) g/dL Micro Results-Entire Visit: Microbiology 03/13/18 02:08 Urine Culture - Preliminary Urine, Void NO GROWTH TO DATE Accuchecks Date 03/13/18 Date 03/13/18 Date 03/13/18 Time 22:00 Time 16:30 Time 11:30 Accucheck Value: 126 Accucheck Value: 299 Accucheck Value: 248 Accucheck Value: 324 - Radiology Exams Ordered Rad Exams-Entire Visit: Radiology Procedures Category Date Time Status CHEST 1 VIEW (PORTABLE) Routine Exams 03/12/18 13:00 Completed - Procedures and Test Procedures and Tests throughout Hospitalization: Therapy Orders & Screens 03/12/18 12:23 PT Eval & Treat ( Order) ROUTINE Reason for Eval:: Weakness Diagnosis: Dehydration, weakness 03/12/18 16:24 Oxygen NASAL CANNULA 2 lpm Comment: Diagnosis: dehydration Respiratory Therapy Assessment DAILY Comment: Diagnosis: dehydration 03/13/18 17:05 EKG ROUTINE Comment: Diagnosis: dehydration,chest pain with standing Discharge Exam General Appearance: no apparent distress, thin Neurologic Exam: alert Skin Exam: normal color, warm, dry Respiratory Exam: normal breath sounds Cardiovascular Exam: regular rate/rhythm, normal heart sounds Gastrointestinal/Abdomen Exam: soft, No tenderness, No mass Final Diagnosis/Problem List - Final Discharge Diagnosis/Problem (1) UTI (urinary tract infection) Current Visit: Yes Status: Acute Onset Date: ~03/13/18 Assessment & Plan: on diflucan, will continue (2) Chest pain on exertion Current Visit: Yes Status: Acute Onset Date: ~03/13/18 Assessment & Plan: seen by Dr Richardson, troponin elevated but again life expectancy is guarded at this point. plan to focus on comfort measures (3) Dehydration Current Visit: Yes Status: Acute Onset Date: ~03/12/18 Assessment & Plan: improved (4) Weakness Current Visit: Yes Status: Acute Onset Date: ~03/12/18 Assessment & Plan: improved - Discharge Disposition: Home, Self-Care Condition: Stable Prescriptions: Continue Tamsulosin HCl 0.4 mg [Flomax 0.4 MG] 0.8 mg PO DAILY Metoprolol Tartrate 50 mg [Lopressor 50 MG] 25 mg PO BID Lipase/Protease/Amylase [Misty Pierson 24,000 Units Capsule] 1 - 2 tab PO AC Insulin Glargine,Hum.rec.anlog [Lantus] 10 unit SQ BID Simvastatin [Zocor] 40 mg PO DAILY Alprazolam 0.25 mg [xanAX 0.25 MG] 0.25 mg PO Q6HPRN PRN PRN Reason: Anxiety Nitroglycerin 0.4 mg Tablet [Nitrostat 0.4 MG Tablet] 0.4 mg SL Q5MIN PRN MR X 3 PRN #25 bottle PRN Reason: Chest Pain Hydrocodone/Acetaminophen [Hydrocodon-Acetaminophen 5-325] 1 tab PO Q4H PRN PRN PRN Reason: Pain Megestrol Acetate 40 mg/ml [Megace 40 MG/ML] 20 ml PO UD Glipizide [Glucotrol] 5 mg PO 1700 Ondansetron ODT 4 MG [Zofran Odt 4 mg] 4 mg PO Q8H PRN PRN PRN Reason: Nausea glipiZIDE [Glipizide] 2.5 mg PO LUNCH Budesonide/Formoterol Fumarate [Symbicort 160-4.5 Mcg Inhaler] 2 puff IH DAILY PRN PRN Reason: sob Sodium Bicarbonate 650 mg PO BID Enzalutamide [Xtandi] 40 mg PO DAILY Fluconazole 100 mg [Diflucan 100 MG] 200 mg PO DAILY Discontinued Bicalutamide [Casodex] 50 mg PO DAILY Follow up with: CARLOS ALEJANDRE MD [Primary Care Provider] - 1 Week
--- NOTE | 2018-03-14 08:42 | CONS ---
CONSULT DATE: 03/13/2018 BRIEF HISTORY: This is an 82 year-old male with known history of coronary artery disease status post previous coronary artery bypass surgery who was seen for chest pains. The patient was primarily admitted because of generalized weakness and states that he feels dehydrated. He also had an episode of chest pain which was short. At the time of the examination he was already chest pain-free. The patient was admitted to [facility] sometime in September 2017 for tachycardia. He also had mildly elevated troponin-I at that time but during that admission he had Clostridium difficile colitis. He has had a cardiac catheterization in 2013 which showed the previously deployed grafts to be patent. He is known to have coronary artery disease who has had previous coronary artery bypass surgery. CARDIAC RISK FACTORS: Positive for diabetes. Positive for hypertension. He has hyperlipidemia. He has a history of smoking. FAMILY HISTORY: Negative for premature coronary artery disease. 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 He has no significant alcohol intake. 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 RESPIRATORY: Chronic obstructive lung disease. GI: No history of peptic ulcer or colon disorder. : He has a history of prostate cancer for which he underwent radiation therapy. MUSCULOSKELETAL: He has occasional joint pains. PAST SURGICAL HISTORY: Coronary artery bypass surgery. CURRENT MEDICATIONS: Xanax, Ecotrin, Diflucan, Megace, Lopressor, sodium bicarb tablet, nitroglycerin sublingual, Creon 24,000 unit capsule, Simvastatin 20 mg, Flomax, Casodex. PHYSICAL EXAMINATION: His blood pressure is 149/70 with a heart rate 75, respirations about 18. GENERAL: The patient is an elderly male who is alert, oriented somewhat comfortable in the recumbent position. HEENT: Slightly pale conjunctivae. NECK: No obvious JVD. CHEST: There is a well healed sternal scar. The lungs the breath sounds are diminished with some rhonchi. CARDIAC: Heart tones are normal. There is a grade 2/6 mid systolic murmur. ABDOMEN: Soft with normal bowel sounds. EXTREMITIES: No significant edema. LAB DATA AND DIAGNOSTIC TESTS: CBC showed hemoglobin 8.6. IMPRESSION: In essence the patient is known to have: 1) Coronary artery disease status post coronary artery bypass surgery. He had an episode of chest pain but currently asymptomatic. I will continue with medical therapy at this time as he has some other medical illness that needs to be treated. We are going to get an EKG and also serial troponin-I. 2) Diabetes. 3) Hypertension. 4) Hyperlipidemia. 5) Chronic obstructive lung disease. I will follow up with you.
[2018-03-14] MEDS: Flomax 0.4 MG PO SCH (11:11)
[2018-03-14] MEDS: Megace 40 MG/ML PO SCH (11:11)
[2018-03-14] MEDS: NON-FORMULARY ITEM PO SCH (11:11)
[2018-03-14] MEDS: Diflucan 100 MG PO SCH (11:12)
[2018-03-14] MEDS: Lopressor 25MG Tab PO SCH (11:13)
[2018-03-14] MEDS: ECOTRIN 81 MG PO SCH (11:31)
== END 2018-03-14 11:45 | disposition home or self-care (01) ==
LOC: MED SURG 12:11
PROVIDERS: ADMIT Family Medicine; ATTEND Family Medicine
DX: N39.0 Urinary tract infection, site not specified (principal); R07.9 Chest pain, unspecified; E86.0 Dehydration; R53.1 Weakness; I10 Essential (primary) hypertension; E11.9 Type 2 diabetes mellitus without complications; I25.810 Atherosclerosis of coronary artery bypass graft(s) without angina pectoris; E78.5 Hyperlipidemia, unspecified; Z79.899 Other long term (current) drug therapy
CPT/HCPCS: 36415; 71045; 80048; 80053; 81000; 82962; 83036; 83735; 84484; 85025; 87086; 93005; 94760; 97161; 97530; G0378; A9270-GY